=== PATIENT | female | born 1945 | race Two or more races ===

== ENCOUNTER 2017-03-05 14:45 | Observation (INO) | payer MEDICARE, OTHER ==
[2017-03-05] MEDS ORDERED: DILTIAZEM HCL INJ 25 MG/5 ML VIAL IV ONE ×2 (15:22→17:01)
--- NOTE | 2017-03-05 15:28 | ER Document Report ---
ED Cardiac - General Chief Complaint: Palpitations Stated Complaint: CHEST PRESSURE, NECK TIGHTNESS Time Seen by Provider: 03/05/17 14:59 Mode of Arrival: Ambulatory Notes: 71-year-old female with prior history of atrial fibrillation which she remains in, currently on Eliquis, Metoprolol and Multaq presents with rapid palpitations that are regular with pressure in her chest radiating to her neck as well as pressure to the back of her head. It feels irregular. Rate was in the 140s according to her friend who is a retired nurse. She reports missing her morning medications as she was given "on the move". She did end up taking her medications approximately 45 minutes prior to coming to the emergency department. She has not used any [id number]-ovwxful medications or other stimulants. Denies any other new symptoms. Denies any specific pain. No infectious symptoms fever. TRAVEL OUTSIDE OF THE [place] IN LAST 30 DAYS: No - Related Data Allergies/Adverse Reactions: diazepam [From Valium] Allergy (Verified 03/05/17 14:57) "Ants crawling on my skin" oxycodone [From Percocet] Adverse Reaction (Unknown, Verified 03/05/17 14:57) Nightmares Past Medical History - Social History Smoking Status: Never Smoker Family History: Hypertension - Past Medical History Cardiac Medical History: Reports: Hx Atrial Fibrillation, Hx Hypercholesterolemia, Hx Hypertension Pulmonary Medical History: Denies: Hx Tuberculosis Neurological Medical History: Denies: Hx Seizures Renal/ Medical History: Reports: Hx Ovarian Cysts. Denies: Hx Peritoneal Dialysis Malignancy Medical History: Reports: Hx Breast Cancer - R breast cancer 13 yrs ago. GI Medical History: Reports: Hx Gastroesophageal Reflux Disease Musculoskeltal Medical History: Reports Hx Arthritis - Knees, hands, Reports Hx Musculoskeletal Trauma Traumatic Medical History: Reports: Hx Fractures - right hip Past Surgical History: Reports: Hx Appendectomy - Over 50 yrs ago., Hx Genitourinary Surgery, Hx Gynecologic Surgery - ovary right removed, Hx Mastectomy - Right, Hx Orthopedic Surgery - Wrist, hip, Hx Tonsillectomy - Over 50 yrs ago., Other - hernia repair. Denies: Hx Hysterectomy, Hx Pacemaker - Immunizations Hx Diphtheria, Pertussis, Tetanus Vaccination: Yes Hx Pneumococcal Vaccination: 02/21/15 Review of Systems - Review of Systems -: Yes All other systems reviewed and negative Physical Exam - Vital signs Vitals: Temp Pulse Resp BP Pulse Ox 98.4 F 127 H 18 126/52 H 97 03/05/17 14:55 03/05/17 14:55 03/05/17 14:55 03/05/17 14:55 03/05/17 14:55 Interpretation: Tachycardic - Notes Notes: Physical Exam: GENERAL: VS as per nursing doc. Well-appearing, well-nourished and in no acute distress. HEAD: Atraumatic, normocephalic. EYES: Pupils equal round and reactive to light, extraocular movements intact, sclera anicteric, no conjunctival injection or discharge. ENT: Nares patent, oropharynx clear without exudates. Moist mucous membranes. NECK: Normal range of motion, supple without lymphadenopathy. No JVD. No Carotid Bruits. Nontender to palpation. LUNGS: Breath sounds clear to auscultation bilaterally and equal. No wheezes rales or rhonchi. HEART: Normal S1S2. Irregularly irregular, tachycardic without murmurs. Equal peripheral pulses. ABDOMEN: Soft, non-tender. EXTREMITIES: Normal range of motion. No calf tenderness. Negative Homans. 1 + edema. NEUROLOGICAL: Cranial nerves grossly intact. Normal speech. Normal sensory and motor exams. No gross cerebellar abnormalities. PSYCH: Normal mood, normal affect. SKIN: Warm, dry, no cyanosis, no splinter hemorrhages. Cap refill < 2 sec. Course - Vital Signs Vital signs: Temp Pulse Resp BP Pulse Ox 98.4 F 127 H 14 112/64 100 03/05/17 14:55 03/05/17 14:55 03/05/17 19:06 03/05/17 19:06 03/05/17 19:06 - Laboratory Result Diagrams: 03/05/17 15:05 03/05/17 15:05 Laboratory results interpreted by me: 03/05/17 03/05/17 15:05 15:05 RDW 14.2 H BUN 26 H Glucose 171 H - EKG Interpretation by Oh Rhythm: A.Fib - Atrial fibrillation with rapid ventricular response. ST abnormalities probably more rate related. No clear ischemia but there are nonspecific ST changes. Discharge - Discharge Clinical Impression: Atrial fibrillation with RVR Condition: Fair Disposition: ADMITTED OBSERVATION Unit Admitted: [facility]
[2017-03-05] MEDS: DILTIAZEM HCL/D5W 125 MG/125 ML RTUINJ IV PRN ×2 (17:24→21:37)
[2017-03-05 18:10] LABS: ABSOLUTE EOSINOPHILS # (AUTO) 0.2 10^3/uL (0.0-0.6); ABSOLUTE LYMPHOCYTES (AUTO) 1.2 10^3/uL (0.5-4.7); ABSOLUTE MONOCYTES (AUTO) 0.4 10^3/uL (0.1-1.4); BASOPHILS % (AUTO) 0.6 % (0-2); EOSINOPHILS % (AUTO) 2.7 % (0-6); HEMATOCRIT 39.9 % (36.0-47.0); HEMOGLOBIN 13.6 g/dL (12.0-15.5); HGB HCT DIFFERENCE 0.9; LYMPHOCYTES % (AUTO) 21.2 % (13-45); MEAN CORPUSCULAR HEMOGLOBIN 29.9 pg (27.0-33.4); MEAN CORPUSCULAR VOLUME 88 fl (80-97); MONOCYTES % (AUTO) 7.5 % (3-13); RED BLOOD COUNT 4.53 10^6/uL (3.72-5.28); RED CELL DISTRIBUTION WIDTH 14.2 % (11.5-14.0); WHITE BLOOD COUNT 5.8 10^3/uL (4.0-10.5)
[2017-03-05 18:19] LABS: ALANINE AMINOTRANSFERASE 30 U/L (9-52); ALBUMIN 4.3 g/dL (3.5-5.0); ALKALINE PHOSPHATASE 70 U/L (38-126); ANION GAP 13 (5-19); ASPARTATE AMINO TRANSFERASE 28 U/L (14-36); BILIRUBIN,DIRECT 0.4 mg/dL (0.0-0.4); BILIRUBIN,TOTAL 0.5 mg/dL (0.2-1.3); BLOOD UREA NITROGEN 26 mg/dL (7-20); CALCIUM 9.5 mg/dL (8.4-10.2); CARBON DIOXIDE 28 mmol/L (22-30); CHLORIDE 100 mmol/L (98-107); CREATINE KINASE 69 U/L (30-135); GLUCOSE 171 mg/dL (75-110); MAGNESIUM 2.2 mg/dL (1.6-2.3); POTASSIUM 3.6 mmol/L (3.6-5.0); SODIUM 141.3 mmol/L (137-145); TOTAL PROTEIN 7.2 g/dL (6.3-8.2)
[2017-03-05 18:30] LABS: CREATINE KINASE MB 0.73 ng/mL (<4.55)
[2017-03-05 18:31] LABS: TROPONIN I < 0.012 ng/mL
--- NOTE | 2017-03-05 19:00 | RADIOLOGY REPORT (SQ) ---
EXAM DESCRIPTION: CHEST SINGLE VIEW COMPLETED DATE/TIME: 03/05/2017 6:53 pm REASON FOR STUDY: CP COMPARISON: 03/26/2016 EXAM PARAMETERS: NUMBER OF VIEWS: One view. TECHNIQUE: Single frontal radiographic view of the chest acquired. RADIATION DOSE: NA LIMITATIONS: Low lung volumes. FINDINGS: LUNGS AND PLEURA: No opacities, masses or pneumothorax. No pleural effusion. MEDIASTINUM AND HILAR STRUCTURES: No masses. Contour normal. HEART AND VASCULAR STRUCTURES: Heart normal in size. Normal vasculature. BONES: No acute findings. HARDWARE: None in the chest. OTHER: No other significant finding. IMPRESSION: NO ACUTE RADIOGRAPHIC FINDING IN THE CHEST. TECHNICAL DOCUMENTATION: JOB ID: [id number]
[2017-03-05] MEDS ORDERED: POLYETHYLENE GLYCOL 3350 POWDER 17 GM/1 PACKET PO PRN (20:07)
[2017-03-05] MEDS ORDERED: DILTIAZEM HCL/D5W 125 MG/125 ML RTUINJ IV PRN (20:11)
[2017-03-05] MEDS ORDERED: MAG HYDROX/AL HYDROX/SIMETH SUSP 30 ML UDCUP PO PRN (20:11)
[2017-03-05 21:31] LABS: CREATINE KINASE MB 0.79 ng/mL (<4.55)
[2017-03-05 21:38] LABS: TROPONIN I < 0.012 ng/mL
[2017-03-05] MEDS ORDERED: ATORVASTATIN CALCIUM 10 MG TABLET PO SCH (22:00)
--- NOTE | 2017-03-05 22:51 | EKG REPORT ---
SEVERITY:- ABNORMAL ECG - ATRIAL FIBRILLATION BORDERLINE PROLONGED QT INTERVAL : Confirmed by: Lucia Banuelos 05-Mar-2017 22:50:28
[2017-03-05] MEDS ORDERED: NORMAL SALINE 1000 ML 1,000 ML IV ONE (22:58)
[2017-03-06] MEDS: APIXABAN 5 MG TABLET PO SCH ×2 (00:45→10:45)
[2017-03-06] MEDS: DRONEDARONE HYDROCHLORIDE 400 MG TABLET PO SCH ×2 (00:46→10:47)
[2017-03-06] MEDS ORDERED: NORMAL SALINE 1000 ML 1,000 ML IV ONE (01:57)
--- NOTE | 2017-03-06 02:09 | PDOC H&P ---
History of Present Illness Admission Date/PCP: 03/05/17 20:11 Patient complains of: Chest pressure History of Present Illness: CONOR REDDY is a 71 year old female with a past medical history of hypertension, dyslipidemia and atrial fibrillation on Eliquis twice daily. Who has been her usual state of health until approximately 6 hours prior to presentation developing chest and left neck tightness prompting to seek evaluation emergency room where she is found to be in A. fib with RVR in the 140s. She is started on IV diltiazem with improvement of her heart rate develops hypotension requiring several liters of normal saline and is referred to the hospitalist for admission. Patient denies pain currently, no shortness of breath nausea vomiting or diaphoresis occurring prior to presentation. She denies recent heat or cold intolerance, pulmonary complaints, change in medications, excessive caffeine, alcohol. Past Medical History Cardiac Medical History: Reports: Atrial Fibrillation, Hyperlipidema, Hypertension Pulmonary Medical History: Denies: Tuberculosis Neurological Medical History: Denies: Seizures Malignancy Medical History: Reports: Breast Cancer - R breast cancer 13 yrs ago. GI Medical History: Reports: Gastroesophageal Reflux Disease Musculoskeltal Medical History: Reports: Arthritis - Knees, hands Hematology: Reports: Anemia Past Surgical History Past Surgical History: Reports: Appendectomy - Over 50 yrs ago., Mastectomy - Right, Orthopedic Surgery - Wrist, hip, Tonsillectomy - Over 50 yrs ago., Other - hernia repair Denies: Hysterectomy, Pacemaker Social History Information Source: Patient, [facility] Records Lives with: Family Smoking Status: Never Smoker Frequency of Alcohol Use: None Hx Recreational Drug Use: No Drugs: None Hx Prescription Drug Abuse: No - Advance Directive Resuscitation Status: Full Code Family History Family History: Hypertension Parental Family History Reviewed: Yes Children Family History Reviewed: Yes Sibling(s) Family History Reviewed.: Yes Medication/Allergy Home Medications: Apixaban [Eliquis 5 mg Tablet] 5 mg PO Q12 03/05/17 Ascorbic Acid [Vitamin C] 250 mg PO DAILY 03/05/17 Atorvastatin Calcium [Lipitor 10 mg Tablet] 10 mg PO QHS 03/05/17 Azelaic Acid [Finacea] 1 applic TP DAILY 03/05/17 Biotin 1,200 mcg PO DAILY 03/05/17 Calcium Carbonate [Calcium] 1,000 mg PO DAILY 03/05/17 Cholecalciferol (Vitamin D3) [Vitamin D3 2000 unit Tablet] 2,000 unit PO DAILY 03/05/17 Cyanocobalamin (Vitamin B-12) [Vitamin B-12] 500 mcg PO DAILY 03/05/17 Diltiazem HCl [Diltiazem 24Hr Cd] 120 mg PO DAILY 03/05/17 Dronedarone Hydrochloride [Multaq 400 Mg Tablet] 400 mg PO BID 03/05/17 Hydrochlorothiazide [Hydrodiuril 25 mg Tablet] 25 mg PO QAM 03/05/17 Hydrocodone/Acetaminophen [[place] 7.5-325 mg Tablet] 1 tab PO Q8HP PRN 03/05/17 Loratadine [Claritin] 10 mg PO DAILYP PRN 03/05/17 Magnesium Oxide [Mag-Ox 400 mg Tablet] 400 mg PO DAILY 03/05/17 Metoprolol Tartrate [Lopressor 25 mg Tablet] 25 mg PO DAILY 03/05/17 Multivitamin [Chewable-Thom] 1 tab PO DAILY 03/05/17 Telmisartan [Micardis 20 mg Tablet] 20 mg PO DAILY 03/05/17 Allergies/Adverse Reactions: diazepam [From Valium] Allergy (Verified 03/05/17 14:57) "Ants crawling on my skin" oxycodone [From Percocet] Adverse Reaction (Unknown, Verified 03/05/17 23:37) Nightmares Review of Systems Constitutional: ABSENT: chills, fever(s), headache(s), weight gain, weight loss Eyes: ABSENT: visual disturbances Ears: ABSENT: hearing changes Cardiovascular: ABSENT: chest pain, dyspnea on exertion, edema, orthropnea, palpitations Respiratory: ABSENT: cough, hemoptysis Gastrointestinal: ABSENT: abdominal pain, constipation, diarrhea, hematemesis, hematochezia, nausea, vomiting Genitourinary: ABSENT: dysuria, hematuria Musculoskeletal: ABSENT: joint swelling Integumentary: ABSENT: rash, wounds Neurological: ABSENT: abnormal gait, abnormal speech, confusion, dizziness, focal weakness, syncope Psychiatric: ABSENT: anxiety, depression, homidical ideation, suicidal ideation Endocrine: ABSENT: cold intolerance, heat intolerance, polydipsia, polyuria Hematologic/Lymphatic: ABSENT: easy bleeding, easy bruising Physical Exam Vital Signs: Temp Pulse Resp BP Pulse Ox 98.5 F 64 18 92/40 L 100 03/05/17 22:46 03/05/17 22:46 03/05/17 22:46 03/06/17 00:01 03/05/17 22:46 Intake & Output 03/04/17 03/05/17 03/06/17 11:59 11:59 11:59 Intake Total 100 Balance 100 Weight 65.5 kg General appearance: PRESENT: no acute distress, well-developed, well-nourished Head exam: PRESENT: atraumatic, normocephalic Eye exam: PRESENT: conjunctiva pink, EOMI, PERRLA. ABSENT: scleral icterus Ear exam: PRESENT: normal external ear exam Mouth exam: PRESENT: moist, tongue midline Neck exam: ABSENT: carotid bruit, JVD, lymphadenopathy, thyromegaly Respiratory exam: PRESENT: clear to auscultation willam. ABSENT: rales, rhonchi, wheezes Cardiovascular exam: PRESENT: irregular rhythm, tachycardia. ABSENT: diastolic murmur, rubs, systolic murmur Pulses: PRESENT: normal dorsalis pedis pul Vascular exam: PRESENT: normal capillary refill GI/Abdominal exam: PRESENT: normal bowel sounds, soft. ABSENT: distended, guarding, mass, organolmegaly, rebound, tenderness Rectal exam: PRESENT: deferred Extremities exam: PRESENT: full ROM. ABSENT: calf tenderness, clubbing, pedal edema Neurological exam: PRESENT: alert, awake, oriented to person, oriented to place , oriented to time, oriented to situation, CN II-XII grossly intact. ABSENT: motor sensory deficit Psychiatric exam: PRESENT: appropriate affect, normal mood. ABSENT: homicidal ideation, suicidal ideation Skin exam: PRESENT: dry, intact, warm. ABSENT: cyanosis, rash Results Laboratory Results: 03/05/17 20:50 CK-MB (CK-2) 0.79 Troponin I < 0.012 Impressions: Chest X-Ray 03/05/17 18:42 IMPRESSION: NO ACUTE RADIOGRAPHIC FINDING IN THE CHEST. Assessment & Plan - Diagnosis (1) Atrial fibrillation with RVR Is this a current diagnosis for this admission?: Yes Plan: Unclear cause for exacerbation. Concern for chest tightness and risk factors for coronary disease she is admitted to the [facility] with resumption of her home regiment in addition to IV Cardizem. Follow-up cardiac enzymes, TSH, 2D echo and cardiology consult with Dr. Jez Stapleton. (2) Chest pain Is this a current diagnosis for this admission?: Yes Plan: Chest pain with coronary artery disease risk factors will obtain serial cardiac enzymes and lipid profile. Consider outpatient stress test given chest pain with tachycardia. (3) Hypotension Is this a current diagnosis for this admission?: Yes Plan: Likely secondary to uncontrolled rate with mild hypokalemia IV fluid challenge and reevaluation. - Time Time Spent: 50 to 70 Minutes - Inpatient Certification Medical Necessity: Need Close Monitoring Due to Risk of Patient Decompensation
[2017-03-06 03:28] LABS: ABSOLUTE EOSINOPHILS # (AUTO) 0.2 10^3/uL (0.0-0.6); ABSOLUTE LYMPHOCYTES (AUTO) 1.4 10^3/uL (0.5-4.7); ABSOLUTE MONOCYTES (AUTO) 0.6 10^3/uL (0.1-1.4); ABSOLUTE NEUT (AUTO) 3.7 10^3/uL (1.7-8.2); BASOPHILS % (AUTO) 0.4 % (0-2); EOSINOPHILS % (AUTO) 3.2 % (0-6); HEMATOCRIT 31.6 % (36.0-47.0); HGB HCT DIFFERENCE 1.4; LYMPHOCYTES % (AUTO) 23.1 % (13-45); MEAN CORPUSCULAR HEMOGLOBIN 30.5 pg (27.0-33.4); MEAN CORPUSCULAR HGB CONC 34.9 g/dL (32.0-36.0); MEAN CORPUSCULAR VOLUME 88 fl (80-97); RED BLOOD COUNT 3.61 10^6/uL (3.72-5.28); RED CELL DISTRIBUTION WIDTH 14.2 % (11.5-14.0); SEGMENTED NEUTROPHILS % (AUTO) 63.3 % (42-78); WHITE BLOOD COUNT 5.9 10^3/uL (4.0-10.5)
[2017-03-06 03:36] LABS: CHOLESTEROL 121.39 mg/dL (0-200); CREATINE KINASE 49 U/L (30-135); Direct HDL 50 mg/dL (>40); TRIGLYCERIDES 81 mg/dL (<150)
[2017-03-06 03:47] LABS: DIRECT LDL 51 mg/dL (<100)
[2017-03-06 03:48] LABS: CREATINE KINASE MB 0.71 ng/mL (<4.55)
[2017-03-06 04:04] LABS: TROPONIN I < 0.012 ng/mL
[2017-03-06] MEDS ORDERED: VIT D3 PO SCH (10:00)
[2017-03-06] MEDS ORDERED: CYANOCOBALAMIN (VITAMIN B-12) 1,000 MCG TABLET PO SCH (10:00)
[2017-03-06] MEDS ORDERED: CALCIUM CARBONATE 250 MG/VITAMIN D3 125 UNIT TABLET PO SCH (10:00)
[2017-03-06] MEDS ORDERED: CYANOCOBALAMIN 1500 MCG PO SCH (10:00)
[2017-03-06] MEDS ORDERED: CALCIUM PHOSPHATE TRIB PO SCH (10:00)
[2017-03-06] MEDS ORDERED: METOPROLOL SUCCINATE 25 MG TAB.SR.24H PO SCH (10:00)
[2017-03-06] MEDS ORDERED: [UNRECOGNIZED DRUG - OTHER] PO SCH (10:00)
[2017-03-06] MEDS ORDERED: DOCUSATE SODIUM 100 MG CAPSULE PO SCH (10:00)
[2017-03-06 11:13] VITALS: BP 110/60
[2017-03-06 11:54] LABS: CREATINE KINASE MB 0.54 ng/mL (<4.55)
[2017-03-06 11:58] LABS: TROPONIN I < 0.012 ng/mL
[2017-03-06] MEDS ORDERED: MAG HYDROX/AL HYDROX/SIMETH SUSP 30 ML UDCUP PO PRN (12:00)
[2017-03-06] MEDS ORDERED: POLYETHYLENE GLYCOL 3350 POWDER 17 GM/1 PACKET PO PRN (12:00)
--- NOTE | 2017-03-06 16:08 | PDOC DISCHARGE SUMMARY ---
General - Admit/Disc Date/PCP Admission Date/Primary Care Provider: 03/05/17 20:11 Discharge Date: 03/06/17 - Discharge Diagnosis (1) Atrial fibrillation with RVR Is this a current diagnosis for this admission?: Yes (2) Hypertension Is this a current diagnosis for this admission?: Yes Summary: BP well controlled. (3) Dyslipidemia Is this a current diagnosis for this admission?: Yes (4) GERD without esophagitis Is this a current diagnosis for this admission?: Yes (5) Arthritis Is this a current diagnosis for this admission?: Yes (6) Anemia Is this a current diagnosis for this admission?: Yes - Additional Information Resuscitation Status: Full Code Discharge Diet: Cardiac Discharge Activity: Activity As Tolerated Home Medications: Apixaban [Eliquis 5 mg Tablet] 5 mg PO Q12 03/05/17 Ascorbic Acid [Vitamin C] 250 mg PO DAILY 03/05/17 Atorvastatin Calcium [Lipitor 10 mg Tablet] 10 mg PO QHS 03/05/17 Azelaic Acid [Finacea] 1 applic TP DAILY 03/05/17 Biotin 1,200 mcg PO DAILY 03/05/17 Calcium Carbonate [Calcium] 1,000 mg PO DAILY 03/05/17 Cholecalciferol (Vitamin D3) [Vitamin D3 2000 unit Tablet] 2,000 unit PO DAILY 03/05/17 Cyanocobalamin (Vitamin B-12) [Vitamin B-12] 500 mcg PO DAILY 03/05/17 Diltiazem HCl [Diltiazem 24Hr Cd] 120 mg PO DAILY 03/05/17 Dronedarone Hydrochloride [Multaq 400 mg Tablet] 400 mg PO BID 03/05/17 Hydrochlorothiazide [Hydrodiuril 25 mg Tablet] 25 mg PO QAM 03/05/17 Hydrocodone/Acetaminophen [[place] 7.5-325 mg Tablet] 1 tab PO Q8HP PRN 03/05/17 Loratadine [Claritin] 10 mg PO DAILYP PRN 03/05/17 Magnesium Oxide [Mag-Ox 400 mg Tablet] 400 mg PO DAILY 03/05/17 Metoprolol Tartrate [Lopressor 25 mg Tablet] 25 mg PO DAILY 03/05/17 Multivitamin [Chewable-Thom] 1 tab PO DAILY 03/05/17 Telmisartan [Micardis 20 mg Tablet] 20 mg PO DAILY 03/05/17 History of Present Illness History of Present Illness: CONOR REDDY is a 71 year old female with a past medical history of hypertension, dyslipidemia and atrial fibrillation on Eliquis twice daily. She was in her usual state of health until approximately 6 hours prior to presentation when she developed palpitations associated with chest and left neck tightness. This prompted her to seek evaluation in our emergency room where she is found to be in A. fib with RVR in the 140s. She was started on IV diltiazem with improvement of her heart rate, but developed hypotension. She required several liters of normal saline to bring her BP up. At the time of admission, she did not report pain, shortness of breath, nausea, vomiting or diaphoresis. She denied recent heat or cold intolerance, pulmonary complaints, change in medications, or excessive caffeine and alcohol. Hospital Course Hospital Course: She was maintained on her usual cardiac medications, except oral diltiazem, because she was on the diltiazem drip. She mentioned earlier, that she had forgot to take her medications during the day, but took them about 45 minutes prior to arriving to the ED. Her rate was easily controlled. the diltiazem gtt was stopped. Her HR remained in the 60s. She remained asymptomatic throughout her hospital stay. She underwent an echocardiogram prior to discharge. The results were pending. She will follow-up with her dinkey engineer, Dr Stapleton, for the results. Physical Exam Vital Signs: Temp Pulse Resp BP Pulse Ox 97.3 F 61 16 110/60 98 03/06/17 11:05 03/06/17 11:05 03/06/17 11:05 03/06/17 11:05 03/06/17 11:05 Intake & Output 03/05/17 03/06/17 03/07/17 06:59 06:59 06:59 Intake Total 2225 Output Total 1000 Balance 1225 Weight 61.4 kg General appearance: PRESENT: no acute distress, well-developed, well-nourished Head exam: PRESENT: atraumatic, normocephalic Eye exam: PRESENT: conjunctiva pink, EOMI, PERRLA. ABSENT: scleral icterus Neck exam: ABSENT: carotid bruit, JVD, lymphadenopathy, thyromegaly Respiratory exam: PRESENT: clear to auscultation willam. ABSENT: rales, rhonchi, wheezes Cardiovascular exam: PRESENT: irregular rhythm - Normal rate GI/Abdominal exam: PRESENT: normal bowel sounds, soft. ABSENT: distended, guarding, mass, organolmegaly, rebound, tenderness Musculoskeletal exam: PRESENT: ambulatory Neurological exam: PRESENT: alert, awake, oriented to person, oriented to place , oriented to time, oriented to situation, CN II-XII grossly intact. ABSENT: motor sensory deficit Skin exam: PRESENT: dry, intact, warm. ABSENT: cyanosis, rash Results Laboratory Results: 03/06/17 03:02 03/05/17 03/06/17 03/06/17 20:50 03:02 03:02 WBC 5.9 RBC 3.61 L Hgb 11.0 L D Hct 31.6 L MCV 88 MCH 30.5 MCHC 34.9 RDW 14.2 H Plt Count 179 Seg Neutrophils % 63.3 Lymphocytes % 23.1 Monocytes % 10.0 Eosinophils % 3.2 Basophils % 0.4 Absolute Neutrophils 3.7 Absolute Lymphocytes 1.4 Absolute Monocytes 0.6 Absolute Eosinophils 0.2 Absolute Basophils 0.0 Triglycerides 81 Cholesterol 121.39 LDL Cholesterol Direct 51 VLDL Cholesterol 16.0 HDL Cholesterol 50 TSH 0.91 03/05/17 03/06/17 03/06/17 20:50 03:02 03:02 Creatine Kinase 49 CK-MB (CK-2) 0.79 0.71 Troponin I < 0.012 < 0.012 03/06/17 10:53 Creatine Kinase CK-MB (CK-2) 0.54 Troponin I < 0.012 Impressions: Chest X-Ray 03/05/17 18:42 IMPRESSION: NO ACUTE RADIOGRAPHIC FINDING IN THE CHEST. Plan Discharge Plan: She will follow up with Dr Stapleton. His office will contact her for appointment.
--- NOTE | 2017-03-07 10:03 | XCELERA REPORT ---
[address] [address] Transthoracic Echocardiogram Report Name: CONOR REDDY V Age: 71 yrs Gender: Female : 1945 Patient Status: Inpatient Patient Location: [facility]^A Study Date: 03/06/2017 09:47 AM Height: 62 in Weight: 144 lb BSA: 1.7 m2 Reason For Study: afib chest pain Ordering Physician: GIRISH YANG Performed By: Patti Michelle Interpretation Summary small post peric reffusion Mild AV sclerosis with 3 cusps, no , no AR. Mild MAC, no MS, no MR but mod/severe LA enlargement REI 48.2. Mod PW hypertrophy, Normal LVEF 66%h LVDD, and no LV enlargement, and no RWMA Mild TR with RVSP 35 mm Hg MMode/2D Measurements & Calculations RVDd: 3.2 cm LVIDd: 4.4 cm FS: 34.6 % Ao root diam: IVSd: 0.94 cm LVIDs: 2.9 cm EDV(Teich): 2.6 cm LVPWd: 0.92 cm 86.8 ml Ao root area: ESV(Teich): 31.3 ml 5.3 cm2 EF(Teich): LA dimension: 63.9 % 3.3 cm LVLd ap4: 7.1 cm SV(MOD-sp4): 49.0 ml LA A2Cs: LA A4Cs: 20.1 cm2 EDV(MOD-sp4): 26.2 cm2 72.0 ml LVLs ap4: 6.0 cm ESV(MOD-sp4): 23.0 ml EF(MOD-sp4): 68.1 % LA length: 5.3 cmLA Vol Index (BP): LA Volume: 51.3 ml/m2 85.3 ml Doppler Measurements & Calculations MV E max moriah: MV P1/2t max moriah: Ao V2 max: LV V1 max P.5 cm/sec 79.0 cm/sec 149.7 cm/sec 4.2 mmHg MV A max moriah: MV P1/2t: 79.4 msec Ao max PG: LV V1 max: 86.9 cm/sec 9.0 mmHg 102.7 cm/sec MV E/A: 0.89 MVA(P1/2t): 2.8 cm2 MV dec slope: 291.3 cm/sec2 MV dec time: 0.27 sec PA V2 max: TR max moriah: 99.7 cm/sec 274.2 cm/sec PA max PG: TR max P.1 mmHg 4.0 mmHg Left Ventricle The left ventricle is normal in size, thickness and function. There is normal left ventricular wall thickness. The left ventricular ejection fraction is normal. LV EF is 66%%. Doppler measurements suggest normal left ventricular diastolic function. No regional wall motion abnormalities noted. There is no thrombus. Right Ventricle The right ventricle is normal in size, thickness and function. Atria The right atrium is normal. The left atrium is severely dilated. REI 48.2. The interatrial septum is intact with no evidence for an atrial septal defect. Mitral Valve There is mild mitral annular calcification. There is no evidence of mitral valve prolapse. There is no mitral valve stenosis. There is no mitral regurgitation noted. Aortic Valve The aortic valve opens well. The aortic valve is sclerotic and shows some degree of functional abnormality. The aortic valve is trileaflet. There is no aortic valvular vegetation. There is no aortic valve stenosis. No aortic regurgitation is present. Tricuspid Valve The tricuspid is normal in structure and function. There is no tricuspid valve prolapse. There is no tricuspid stenosis. There is a trace or physiologic amount of tricuspid regurgitation. There is a mild amount of tricuspid regurgitation. Effusions Small pericardial effusion. I WMSI = 1.00 % Normal = 100 Segments Size X - Cannot 2 - 4 - 1-2 small Interpret 1 - Normal Hypokinetic 3 - AkineticDyskinetic 3-5 moderate 5 - 6-14 large Aneurysmal 15-16 diffuse : GIRISH YANG > Jez Stapleton
== END 2017-03-06 17:03 | disposition home or self-care (01) ==
LOC: ER 14:45 → EH 20:11 → UNDOADMOB 20:25 → EH 20:25 → 3N 23:02
PROVIDERS: ADMIT Internal Medicine; ATTEND Internal Medicine
DX: I48.91 Unspecified atrial fibrillation (principal); I10 Essential (primary) hypertension; E78.5 Hyperlipidemia, unspecified; K21.9 Gastro-esophageal reflux disease without esophagitis; M19.90 Unspecified osteoarthritis, unspecified site; D64.9 Anemia, unspecified; I95.2 Hypotension due to drugs; T46.1X5A Adverse effect of calcium-channel blockers, initial encounter; Y92.230 Patient room in hospital as the place of occurrence of the external cause; Z79.02 Long term (current) use of antithrombotics/antiplatelets; Z85.3 Personal history of malignant neoplasm of breast; Z90.11 Acquired absence of right breast and nipple; Z90.49 Acquired absence of other specified parts of digestive tract; Z82.49 Family history of ischemic heart disease and other diseases of the circulatory system
CPT/HCPCS: 93005; 96376; 99285; 96374; 36415 ×2; 82553 ×2; 82550 ×2; 83735; 84443; 85025 ×2; 80053; 84484 ×2; 80061; 93306; 71010; 93010; A9270 ×6; J3490 ×3; J7030

== ENCOUNTER → 2017-05-01 | Outpatient (CLI) | payer MEDICARE, OTHER ==
[2017-05-01 10:04] LABS: HEMATOCRIT 34.5 % (36.0-47.0); HEMOGLOBIN 11.7 g/dL (12.0-15.5); HGB HCT DIFFERENCE 0.6; MEAN CORPUSCULAR HEMOGLOBIN 29.4 pg (27.0-33.4); MEAN CORPUSCULAR HGB CONC 34.1 g/dL (32.0-36.0); MEAN CORPUSCULAR VOLUME 86 fl (80-97); RED BLOOD COUNT 3.99 10^6/uL (3.72-5.28); RED CELL DISTRIBUTION WIDTH 14.5 % (11.5-14.0); WHITE BLOOD COUNT 5.4 10^3/uL (4.0-10.5)
[2017-05-01 10:17] LABS: ALANINE AMINOTRANSFERASE 35 U/L (9-52); ALKALINE PHOSPHATASE 65 U/L (38-126); ANION GAP 11 (5-19); ASPARTATE AMINO TRANSFERASE 35 U/L (14-36); BILIRUBIN,DIRECT 0.3 mg/dL (0.0-0.4); BILIRUBIN,TOTAL 0.4 mg/dL (0.2-1.3); BLOOD UREA NITROGEN 32 mg/dL (7-20); CARBON DIOXIDE 29 mmol/L (22-30); CHLORIDE 101 mmol/L (98-107); CREATININE RESULT 1.21 mg/dL (0.52-1.25); GLUCOSE 100 mg/dL (75-110); MAGNESIUM 2.3 mg/dL (1.6-2.3); POTASSIUM 4.2 mmol/L (3.6-5.0); SODIUM 141.3 mmol/L (137-145); TOTAL PROTEIN 6.7 g/dL (6.3-8.2)
[2017-05-01 12:12] LABS: APPEARANCE,URINE CLEAR; BILIRUBIN,URINE NEGATIVE (NEGATIVE); GLUCOSE, URINE NEGATIVE (NEGATIVE); KETONES,URINE NEGATIVE (NEGATIVE); LEUKOCYTE ESTERASE,URINE TRACE (NEGATIVE); NITRITE,URINE NEGATIVE (NEGATIVE); PROTEIN,URINE NEGATIVE (NEGATIVE); URINE SPECIFIC GRAVITY 1.018; UROBILINOGEN,URINE NEGATIVE mg/dL (<2.0)
== END ==
LOC: OD 08:56
PROVIDERS: ATTEND Internal Medicine Cardiovascular Disease
DX: Z79.899 Other long term (current) drug therapy (principal); Z79.01 Long term (current) use of anticoagulants
CPT/HCPCS: 36415; 80048; 80076; 81001; 82272; 83735; 85027; 85730

== ENCOUNTER → 2017-07-21 | Outpatient (CLI) | payer MEDICARE, OTHER ==
[2017-07-21 12:03] LABS: HEMATOCRIT 36.1 % (36.0-47.0); HEMOGLOBIN 12.1 g/dL (12.0-15.5); MEAN CORPUSCULAR HEMOGLOBIN 29.4 pg (27.0-33.4); MEAN CORPUSCULAR HGB CONC 33.7 g/dL (32.0-36.0); MEAN CORPUSCULAR VOLUME 87 fl (80-97); PLATELET COUNT 236 10^3/uL (150-450); RED BLOOD COUNT 4.13 10^6/uL (3.72-5.28); RED CELL DISTRIBUTION WIDTH 14.3 % (11.5-14.0); WHITE BLOOD COUNT 5.6 10^3/uL (4.0-10.5)
[2017-07-21 12:04] LABS: APPEARANCE,URINE CLEAR; BILIRUBIN,URINE NEGATIVE (NEGATIVE); COLOR,URINE YELLOW; GLUCOSE, URINE NEGATIVE (NEGATIVE); KETONES,URINE NEGATIVE (NEGATIVE); LEUKOCYTE ESTERASE,URINE SMALL (NEGATIVE); NITRITE,URINE NEGATIVE (NEGATIVE); PROTEIN,URINE NEGATIVE (NEGATIVE); URINE SPECIFIC GRAVITY 1.012; UROBILINOGEN,URINE NEGATIVE mg/dL (<2.0)
[2017-07-21 12:29] LABS: ALANINE AMINOTRANSFERASE 29 U/L (9-52); ALBUMIN 4.2 g/dL (3.5-5.0); ALKALINE PHOSPHATASE 66 U/L (38-126); ANION GAP 7 (5-19); ASPARTATE AMINO TRANSFERASE 31 U/L (14-36); BILIRUBIN,DIRECT 0.3 mg/dL (0.0-0.4); BILIRUBIN,TOTAL 0.4 mg/dL (0.2-1.3); BLOOD UREA NITROGEN 22 mg/dL (7-20); CALCIUM 9.3 mg/dL (8.4-10.2); CARBON DIOXIDE 31 mmol/L (22-30); CHLORIDE 103 mmol/L (98-107); GLUCOSE 95 mg/dL (75-110); MAGNESIUM 2.1 mg/dL (1.6-2.3); POTASSIUM 4.3 mmol/L (3.6-5.0); TOTAL PROTEIN 6.8 g/dL (6.3-8.2)
== END ==
LOC: OD 10:26
PROVIDERS: ATTEND Internal Medicine Cardiovascular Disease
DX: Z79.01 Long term (current) use of anticoagulants (principal); Z79.899 Other long term (current) drug therapy
CPT/HCPCS: 36415; 80048; 80076; 81001; 82272; 83735; 85027; 85730

== ENCOUNTER → 2017-11-05 | Outpatient (CLI) | payer MEDICARE, OTHER ==
[2017-11-05 12:33] LABS: HEMATOCRIT 34.2 % (36.0-47.0); HEMOGLOBIN 11.5 g/dL (12.0-15.5); MEAN CORPUSCULAR HEMOGLOBIN 29.8 pg (27.0-33.4); MEAN CORPUSCULAR HGB CONC 33.5 g/dL (32.0-36.0); MEAN CORPUSCULAR VOLUME 89 fl (80-97); PLATELET COUNT 225 10^3/uL (150-450); RED BLOOD COUNT 3.85 10^6/uL (3.72-5.28); RED CELL DISTRIBUTION WIDTH 14.2 % (11.5-14.0); WHITE BLOOD COUNT 4.6 10^3/uL (4.0-10.5)
[2017-11-05 12:34] LABS: APPEARANCE,URINE CLEAR; BILIRUBIN,URINE NEGATIVE (NEGATIVE); COLOR,URINE YELLOW; GLUCOSE, URINE NEGATIVE (NEGATIVE); KETONES,URINE NEGATIVE (NEGATIVE); LEUKOCYTE ESTERASE,URINE TRACE (NEGATIVE); NITRITE,URINE NEGATIVE (NEGATIVE); PROTEIN,URINE NEGATIVE (NEGATIVE); URINE SPECIFIC GRAVITY 1.018; UROBILINOGEN,URINE NEGATIVE mg/dL (<2.0)
[2017-11-05 12:56] LABS: ALANINE AMINOTRANSFERASE 28 U/L (9-52); ALKALINE PHOSPHATASE 56 U/L (38-126); ANION GAP 12 (5-19); ASPARTATE AMINO TRANSFERASE 28 U/L (14-36); BILIRUBIN,DIRECT 0.2 mg/dL (0.0-0.4); BILIRUBIN,TOTAL 0.5 mg/dL (0.2-1.3); BLOOD UREA NITROGEN 28 mg/dL (7-20); CALCIUM 9.1 mg/dL (8.4-10.2); CARBON DIOXIDE 30 mmol/L (22-30); CHLORIDE 100 mmol/L (98-107); GLUCOSE 91 mg/dL (75-110); POTASSIUM 3.7 mmol/L (3.6-5.0); SODIUM 142.2 mmol/L (137-145); TOTAL PROTEIN 6.6 g/dL (6.3-8.2)
== END ==
LOC: OD 11:22
PROVIDERS: ATTEND Internal Medicine Cardiovascular Disease
DX: Z51.81 Encounter for therapeutic drug level monitoring (principal); Z79.01 Long term (current) use of anticoagulants; Z79.899 Other long term (current) drug therapy
CPT/HCPCS: 36415; 80048; 80076; 81001; 82272; 83735; 85027; 85730

== ENCOUNTER → 2017-12-03 | Outpatient (CLI) | payer MEDICARE, OTHER ==
[2017-12-03 10:25] LABS: ANION GAP 9 (5-19); BLOOD UREA NITROGEN 29 mg/dL (7-20); CALCIUM 9.3 mg/dL (8.4-10.2); CARBON DIOXIDE 31 mmol/L (22-30); CHLORIDE 102 mmol/L (98-107); GLUCOSE 93 mg/dL (75-110); POTASSIUM 4.3 mmol/L (3.6-5.0); SODIUM 141.9 mmol/L (137-145)
== END ==
LOC: OD 08:52
PROVIDERS: ATTEND Internal Medicine Cardiovascular Disease
DX: E87.6 Hypokalemia (principal)
CPT/HCPCS: 36415; 80048

== ENCOUNTER 2018-01-07 19:58 | Emergency (ER) | payer MEDICARE, OTHER ==
--- NOTE | 2018-01-07 20:20 | ER Document Report ---
ED Medical Screen (RME) - General Chief Complaint: Nose Bleed Stated Complaint: FALL/NOSE BLEED Time Seen by Provider: 01/07/18 20:16 TRAVEL OUTSIDE OF THE [place] IN LAST 30 DAYS: No - HPI Patient complains to provider of: Facial injury, nosebleed Notes: 01/07/18 20:19 Patient is a 72-year-old female who takes Eliquis secondary to atrial fibrillation, she fell asleep in her office chair on Friday causing her to land face first, she denies any loss of consciousness, she does have some abrasions on her face and has a nosebleed that bled for several hours on Friday and then subsequently stopped after pinching and applying ice, today the nose started bleeding again, her nose is also noted to be asymmetric which is new since the fall - Related Data Allergies/Adverse Reactions: diazepam [From Valium] Allergy (Verified 01/07/18 20:03) "Ants crawling on my skin" oxycodone [From Percocet] Adverse Reaction (Unknown, Verified 01/07/18 20:03) Nightmares Past Medical History - Social History Chew tobacco use (# tins/day): No Frequency of alcohol use: None Drug Abuse: None - Past Medical History Cardiac Medical History: Reports: Hx Atrial Fibrillation, Hx Hypercholesterolemia, Hx Hypertension Pulmonary Medical History: Denies: Hx Tuberculosis Neurological Medical History: Denies: Hx Seizures Renal/ Medical History: Reports: Hx Ovarian Cysts. Denies: Hx Peritoneal Dialysis Malignancy Medical History: Reports: Hx Breast Cancer - R breast cancer 13 yrs ago. GI Medical History: Reports: Hx Gastroesophageal Reflux Disease Musculoskeltal Medical History: Reports Hx Arthritis - Knees, hands, Reports Hx Musculoskeletal Trauma Traumatic Medical History: Reports: Hx Fractures - right hip Past Surgical History: Reports: Hx Appendectomy - Over 50 yrs ago., Hx Genitourinary Surgery, Hx Gynecologic Surgery - ovary right removed, Hx Mastectomy - Right, Hx Orthopedic Surgery - Wrist, hip, Hx Tonsillectomy - Over 50 yrs ago., Other - hernia repair. Denies: Hx Hysterectomy, Hx Pacemaker - Immunizations Hx Diphtheria, Pertussis, Tetanus Vaccination: Yes Doctor's Discharge - Discharge Referrals: GEORGI MICHAEL MD [Primary Care Provider] - Follow up as needed
[2018-01-07 21:08] LABS: ABSOLUTE EOSINOPHILS # (AUTO) 0.3 10^3/uL (0.0-0.6); ABSOLUTE LYMPHOCYTES (AUTO) 1.2 10^3/uL (0.5-4.7); ABSOLUTE MONOCYTES (AUTO) 0.5 10^3/uL (0.1-1.4); ABSOLUTE NEUT (AUTO) 3.8 10^3/uL (1.7-8.2); BASOPHILS % (AUTO) 0.5 % (0-2); EOSINOPHILS % (AUTO) 5.4 % (0-6); HEMATOCRIT 35.1 % (36.0-47.0); HEMOGLOBIN 11.7 g/dL (12.0-15.5); LYMPHOCYTES % (AUTO) 20.4 % (13-45); MEAN CORPUSCULAR HGB CONC 33.4 g/dL (32.0-36.0); MEAN CORPUSCULAR VOLUME 90 fl (80-97); MONOCYTES % (AUTO) 8.4 % (3-13); PLATELET COUNT 265 10^3/uL (150-450); RED BLOOD COUNT 3.91 10^6/uL (3.72-5.28); SEGMENTED NEUTROPHILS % (AUTO) 65.3 % (42-78); TOTAL CELLS COUNTED % (AUTO) 100 %; WHITE BLOOD COUNT 5.9 10^3/uL (4.0-10.5)
[2018-01-07 21:09] LABS: INTERNATIONAL RATION (INR) 1.14; PROTHROMBIN TIME 15.2 SEC (11.4-15.4)
[2018-01-07 21:10] LABS: PARTIAL THROMBOPLASTIN TIME 40.9 SEC (23.5-35.8)
--- NOTE | 2018-01-07 21:11 | RADIOLOGY REPORT (SQ) ---
EXAM DESCRIPTION: CT HEAD WITHOUT COMPLETED DATE/TIME: 01/07/2018 8:44 pm REASON FOR STUDY: injury COMPARISON: None. TECHNIQUE: Axial images acquired through the brain without intravenous contrast. Images reviewed wi th bone, brain and subdural windows. Images stored on PACS. All CT scanners at this facility use dose modulation, iterative reconstruction, and/or weight based d osing when appropriate to reduce radiation dose to as low as reasonably achievable (ALARA). [facility]: Dose Right [facility]: CareDose [facility]: Dose Right [facility]: Teradose 4D [facility]: Smart [employer] RADIATION DOSE: CT Rad equipment meets quality standard of care and radiation dose reduction techniq ues were employed. CTDIvol: 48.5 mGy. DLP: 855 mGy-cm. mGy. LIMITATIONS: None. FINDINGS: VENTRICLES: Normal size and contour. CEREBRUM: No masses. No hemorrhage. No midline shift. No evidence for acute infarction. Normal gra y/white matter differentiation. No areas of low density in the white matter. CEREBELLUM: No masses. No hemorrhage. No alteration of density. No evidence for acute infarction. EXTRAAXIAL SPACES: No fluid collections. No masses. ORBITS AND GLOBE: No intra- or extraconal masses. Normal contour of globe without masses. CALVARIUM: No fracture. PARANASAL SINUSES: No fluid or mucosal thickening. SOFT TISSUES: No mass or hematoma. OTHER: No other significant finding. IMPRESSION: No acute intracranial findings. EVIDENCE OF ACUTE STROKE: NO. COMMENT: Quality ID # [id number]: Final reports with documentation of one or more dose reduction techniques (e.g., Automated exposure control, adjustment of the mA and/or kV according to patient size, use of iterative reconstruction technique) TECHNICAL DOCUMENTATION: JOB ID: [id number] [place]-72 2010 [employer]- All Rights Reserved Reading location - IP/workstation name: [email or web address]
--- NOTE | 2018-01-07 21:14 | RADIOLOGY REPORT (SQ) ---
EXAM DESCRIPTION: CT FACIAL AREA WITHOUT COMPLETED DATE/TIME: 01/07/2018 8:44 pm REASON FOR STUDY: fall COMPARISON: None. TECHNIQUE: Noncontrasted images through the facial bones and orbits windowed for bone and soft tissu e. Additional coronal and sagittal reconstructed images reviewed. All images stored on PACS. All CT scanners at this facility use dose modulation, iterative reconstruction, and/or weight based d osing when appropriate to reduce radiation dose to as low as reasonably achievable (ALARA). [facility]: Dose Right [facility]: CareDose [facility]: Dose Right [facility]: Teradose 4D [facility]: Smart [employer] RADIATION DOSE: mGy. LIMITATIONS: None. FINDINGS: FACIAL BONES: Minimally nasal bone fracture. No other fracture identified. ORBITS: Intact. No fracture. Symmetric intact globes and retroorbital soft tissues. PARANASAL SINUSES: Clear. No significant mucosal thickening, mass or fluid. No nasal polyps. Maxill va sinus outlets are patent. SOFT TISSUES: No mass or edema. INFERIOR BRAIN: Limited view. No acute findings. OTHER: No other significant finding. IMPRESSION: Minimally nasal bone fracture, possibly chronic. No other fracture identified. TECHNICAL DOCUMENTATION: JOB ID: [id number] [place]-72 Quality ID # [id number]: Final reports with documentation of one or more dose reduction techniques (e.g., Au tomated exposure control, adjustment of the mA and/or kV according to patient size, use of iterative reconstruction technique) 2010 [employer]- All Rights Reserved Reading location - IP/workstation name: [email or web address]
[2018-01-07 21:25] LABS: ANION GAP 10 (5-19); BLOOD UREA NITROGEN 28 mg/dL (7-20); CALCIUM 9.2 mg/dL (8.4-10.2); CARBON DIOXIDE 31 mmol/L (22-30); CHLORIDE 103 mmol/L (98-107); GLUCOSE 120 mg/dL (75-110); POTASSIUM 4.4 mmol/L (3.6-5.0)
--- NOTE | 2018-01-07 21:47 | ER Document Report ---
ED Head/Face/Scalp Injury - General Chief Complaint: Nose Bleed Stated Complaint: FALL/NOSE BLEED Time Seen by Provider: 01/07/18 20:16 Notes: Patient is a 72-year-old female comes emergency department for chief complaint of nosebleeds, facial abrasions. Patient was sitting in an office chair on Friday when she fell asleep and fell forward, she landed on her face on the rug. She bled for several hours from facial abrasions and the nosebleed was stopped by pinching. She states that 2 different times today her nose and started bleeding which prompted her to come for evaluation (first time was blowing the nose, second time was straining to get out of a chair). Both nosebleed stopped with pinching after several minutes. She denies loss of consciousness, vomiting, severe headaches. She is on Xarelto for atrial fibrillation. TRAVEL OUTSIDE OF THE [place] IN LAST 30 DAYS: No - Related Data Allergies/Adverse Reactions: diazepam [From Valium] Allergy (Verified 01/07/18 20:03) "Ants crawling on my skin" oxycodone [From Percocet] Adverse Reaction (Unknown, Verified 01/07/18 20:03) Nightmares Past Medical History - General Information source: Patient - Social History Smoking Status: Never Smoker Chew tobacco use (# tins/day): No Frequency of alcohol use: None Drug Abuse: None Lives with: Alone Family History: Hypertension Patient has suicidal ideation: No Patient has homicidal ideation: No - Past Medical History Cardiac Medical History: Reports: Hx Atrial Fibrillation, Hx Hypercholesterolemia, Hx Hypertension Pulmonary Medical History: Denies: Hx Tuberculosis Neurological Medical History: Denies: Hx Seizures Renal/ Medical History: Reports: Hx Ovarian Cysts. Denies: Hx Peritoneal Dialysis Malignancy Medical History: Reports: Hx Breast Cancer - R breast cancer 13 yrs ago. GI Medical History: Reports: Hx Gastroesophageal Reflux Disease Musculoskeletal Medical History: Reports Hx Arthritis - Knees, hands, Reports Hx Musculoskeletal Trauma Traumatic Medical History: Reports: Hx Fractures - right hip Past Surgical History: Reports: Hx Appendectomy - Over 50 yrs ago., Hx Genitourinary Surgery, Hx Gynecologic Surgery - ovary right removed, Hx Mastectomy - Right, Hx Orthopedic Surgery - Wrist, hip, Hx Tonsillectomy - Over 50 yrs ago., Other - hernia repair. Denies: Hx Hysterectomy, Hx Pacemaker - Immunizations Hx Diphtheria, Pertussis, Tetanus Vaccination: Yes Hx Pneumococcal Vaccination: 02/21/15 Review of Systems - Review of Systems Constitutional: No symptoms reported EENT: See HPI Cardiovascular: No symptoms reported Respiratory: No symptoms reported Gastrointestinal: No symptoms reported Genitourinary: No symptoms reported Female Genitourinary: No symptoms reported Musculoskeletal: See HPI Skin: No symptoms reported Hematologic/Lymphatic: No symptoms reported Neurological/Psychological: See HPI Physical Exam - Vital signs Vitals: Temp Pulse Resp BP Pulse Ox 97.7 F 59 L 16 104/46 L 96 01/07/18 20:10 01/07/18 20:10 01/07/18 20:10 01/07/18 20:10 01/07/18 20:10 - Notes Notes: GENERAL: Alert, interacts well. No acute distress. HEAD: Normocephalic, abrasion over the nasal bridge and over the right forehead areas. EYES: Pupils equal, round, and reactive to light. Extraocular movements intact. ENT: Oral mucosa moist, tongue midline. Unremarkable ear, ear canal, TM exam. There is evidence of trauma epistaxis in the left nasal passage this is at the very back of the anterior area. No septal hematoma. Remaining ENT exam unremarkable. NECK: Full range of motion. Supple. Trachea midline. LUNGS: Clear to auscultation bilaterally, no wheezes, rales, or rhonchi. No respiratory distress. HEART: Regular rate and rhythm. No murmur ABDOMEN: Soft, non-tender. Non-distended. Bowel sounds present in all 4 quadrants. EXTREMITIES: Moves all 4 extremities spontaneously. No edema, normal radial and dorsalis pedis pulses bilaterally. No cyanosis. BACK: no cervical, thoracic, lumbar midline tenderness. No saddle anesthesia, normal distal neurovascular exam. NEUROLOGICAL: Alert and oriented x3. Normal speech. [cranial nerves II through XII grossly intact]. PSYCH: Normal affect, normal mood. SKIN: Warm, dry, normal turgor. No rashes or lesions noted. Course - Re-evaluation Re-evalutation: CT of the head, face reviewed and shows small nasal bone fracture but no other abnormalities. No current epistaxis. Event happened around 3 days ago. No current interventions necessary. Discussed nosebleed instructions and precautions, ENT follow-up, return precautions. Patient states satisfaction and agreement. - Vital Signs Vital signs: Temp Pulse Resp BP Pulse Ox 97.7 F 56 L 16 104/38 L 98 01/07/18 20:10 01/07/18 22:15 01/07/18 22:15 01/07/18 22:15 01/07/18 22:15 - Laboratory Result Diagrams: 01/07/18 20:55 01/07/18 20:55 Laboratory results interpreted by me: 01/07/18 01/07/18 01/07/18 20:55 20:55 20:55 Hgb 11.7 L Hct 35.1 L APTT 40.9 H Carbon Dioxide 31 H BUN 28 H Est GFR (Non-Af Amer) 49 L Glucose 120 H Discharge - Discharge Clinical Impression: Epistaxis Facial abrasion Qualifiers: Encounter type: initial encounter Qualified Code(s): S00.81XA - Abrasion of other part of head, initial encounter Nasal bone fracture Qualifiers: Encounter type: initial encounter Fracture type: closed Qualified Code(s): S02.2XXA - Fracture of nasal bones, initial encounter for closed fracture Condition: Stable Disposition: HOME, SELF-CARE Additional Instructions: There is a significant chance of re-bleeding following a nosebleed. Proper care makes this less likely. Do not touch the nose for 24 hours. Do not blow the nose forcefully for one week. After 24 hours, gently apply Vaseline or antibiotic ointment to both nostrils with the tip of a finger or Q-tip, three times a day, for one week. It's normal to have a bloody mucous discharge for a few days. If active bleeding recurs, blow all the blood from the nose, then sit quietly and pinch the nose as firmly as possible for 10 minutes. If this does not stop the bleeding, return for further care. Your imaging shows a small nasal bone fracture, no other abnormalities were noted. Please follow-up with the ENT referral for additional evaluation for nasal bone fracture and nosebleeds (see listed information below). Call tomorrow to make the appointment. Return for any concerning symptoms. [facility] Address: [address] [place] [address] , [place] [address] Referrals: GEORGI MICHAEL MD [EMERITUS] - Follow up as needed
[2018-01-07 22:42] VITALS: BP 104/38
== END 2018-01-07 22:20 | disposition home or self-care (01) ==
LOC: ER 19:58
DX: S02.2XXA Fracture of nasal bones, initial encounter for closed fracture (principal); S00.81XA Abrasion of other part of head, initial encounter; R04.0 Epistaxis; W07.XXXA Fall from chair, initial encounter; I48.91 Unspecified atrial fibrillation; E78.00 Pure hypercholesterolemia, unspecified; I10 Essential (primary) hypertension; Z85.3 Personal history of malignant neoplasm of breast
CPT/HCPCS: 36415; 70450; 70486; 80048; 85025; 85610; 85730; 99284

== ENCOUNTER → 2018-02-12 | Outpatient (CLI) | payer MEDICARE, OTHER ==
[2018-02-12 10:52] LABS: HEMATOCRIT 32.3 % (36.0-47.0); HEMOGLOBIN 11.2 g/dL (12.0-15.5); MEAN CORPUSCULAR HEMOGLOBIN 30.5 pg (27.0-33.4); MEAN CORPUSCULAR HGB CONC 34.5 g/dL (32.0-36.0); MEAN CORPUSCULAR VOLUME 88 fl (80-97); PLATELET COUNT 233 10^3/uL (150-450); RED BLOOD COUNT 3.65 10^6/uL (3.72-5.28); RED CELL DISTRIBUTION WIDTH 13.8 % (11.5-14.0); WHITE BLOOD COUNT 5.2 10^3/uL (4.0-10.5)
[2018-02-12 11:08] LABS: APPEARANCE,URINE CLEAR; BILIRUBIN,URINE NEGATIVE (NEGATIVE); COLOR,URINE YELLOW; GLUCOSE, URINE NEGATIVE (NEGATIVE); KETONES,URINE NEGATIVE (NEGATIVE); LEUKOCYTE ESTERASE,URINE MODERATE (NEGATIVE); NITRITE,URINE NEGATIVE (NEGATIVE); PROTEIN,URINE NEGATIVE (NEGATIVE); URINE SPECIFIC GRAVITY 1.019; UROBILINOGEN,URINE NEGATIVE mg/dL (<2.0)
[2018-02-12 11:12] LABS: CHOLESTEROL 142.01 mg/dL (0-200); TRIGLYCERIDES 77 mg/dL (<150)
[2018-02-12 11:13] LABS: ALANINE AMINOTRANSFERASE 43 U/L (9-52); ALBUMIN 3.8 g/dL (3.5-5.0); ALKALINE PHOSPHATASE 57 U/L (38-126); ANION GAP 9 (5-19); ASPARTATE AMINO TRANSFERASE 29 U/L (14-36); BILIRUBIN,DIRECT 0.2 mg/dL (0.0-0.4); BILIRUBIN,TOTAL 0.6 mg/dL (0.2-1.3); BLOOD UREA NITROGEN 31 mg/dL (7-20); CALCIUM 9.1 mg/dL (8.4-10.2); CARBON DIOXIDE 29 mmol/L (22-30); CHLORIDE 101 mmol/L (98-107); GLUCOSE 99 mg/dL (75-110); POTASSIUM 4.3 mmol/L (3.6-5.0); SODIUM 139.4 mmol/L (137-145); TOTAL PROTEIN 6.6 g/dL (6.3-8.2)
[2018-02-12 11:23] LABS: DIRECT LDL 53 mg/dL (<100)
== END ==
LOC: OD 09:42
PROVIDERS: ATTEND Internal Medicine Cardiovascular Disease
DX: I48.0 Paroxysmal atrial fibrillation (principal); E78.00 Pure hypercholesterolemia, unspecified; Z79.899 Other long term (current) drug therapy; Z79.01 Long term (current) use of anticoagulants
CPT/HCPCS: 36415; 80048; 80061; 80076; 81001; 82272; 83735; 85027; 85730

== ENCOUNTER 2018-03-13 13:56 | Emergency (ER) | payer MEDICARE, OTHER ==
--- NOTE | 2018-03-13 14:34 | ER Document Report ---
ED Medical Screen (RME) - General Chief Complaint: Black/Tarry Stools Stated Complaint: LEG SWELLING/BLACK STOOL Time Seen by Provider: 03/13/18 14:31 Mode of Arrival: Wheelchair Information source: Patient Notes: This is a 72-year-old female with a history of atrial fibrillation (on Eliquis) , anemia who presents to the emergency room with right lower extremity pain and swelling. Patient states that 3 days ago she was sitting down fell and experienced pain behind the right knee. She states that the next day, she started having increased swelling of the lower extremity. She also reports that she has had some black stool. She has had problems with GI bleeding in the past from Pradaxa. She denies any abdominal pain. TRAVEL OUTSIDE OF THE [place] IN LAST 30 DAYS: No - Related Data Allergies/Adverse Reactions: diazepam [From Valium] Allergy (Verified 03/13/18 13:58) "Ants crawling on my skin" oxycodone [From Percocet] Adverse Reaction (Unknown, Verified 03/13/18 13:58) Nightmares Past Medical History - Social History Frequency of alcohol use: None Drug Abuse: None - Past Medical History Cardiac Medical History: Reports: Hx Atrial Fibrillation, Hx Hypercholesterolemia, Hx Hypertension Pulmonary Medical History: Denies: Hx Tuberculosis Neurological Medical History: Denies: Hx Seizures Renal/ Medical History: Reports: Hx Ovarian Cysts. Denies: Hx Peritoneal Dialysis Malignancy Medical History: Reports: Hx Breast Cancer - R breast cancer 13 yrs ago. GI Medical History: Reports: Hx Gastroesophageal Reflux Disease Musculoskeltal Medical History: Reports Hx Arthritis - Knees, hands, Reports Hx Musculoskeletal Trauma Traumatic Medical History: Reports: Hx Fractures - right hip Past Surgical History: Reports: Hx Appendectomy - Over 50 yrs ago., Hx Genitourinary Surgery, Hx Gynecologic Surgery - ovary right removed, Hx Mastectomy - Right, Hx Orthopedic Surgery - Wrist, hip, Hx Tonsillectomy - Over 50 yrs ago., Other - hernia repair. Denies: Hx Hysterectomy, Hx Pacemaker - Immunizations Hx Diphtheria, Pertussis, Tetanus Vaccination: Yes Physical Exam - Vital signs Vitals: Temp Pulse Resp BP Pulse Ox 98.6 F 73 16 122/49 L 98 03/13/18 14:03 03/13/18 14:03 03/13/18 14:03 03/13/18 14:03 03/13/18 14:03 Course - Vital Signs Vital signs: Temp Pulse Resp BP Pulse Ox 98.6 F 73 16 122/49 L 98 03/13/18 14:03 03/13/18 14:03 03/13/18 14:03 03/13/18 14:03 03/13/18 14:03 Doctor's Discharge - Discharge Referrals: GEORGI MICHAEL MD [Primary Care Provider] - Follow up as needed
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
[2018-03-13 15:26] LABS: ABSOLUTE BASOPHILS # (AUTO) 0.1 10^3/uL (0.0-0.2); ABSOLUTE EOSINOPHILS # (AUTO) 0.2 10^3/uL (0.0-0.6); ABSOLUTE LYMPHOCYTES (AUTO) 0.8 10^3/uL (0.5-4.7); ABSOLUTE MONOCYTES (AUTO) 0.6 10^3/uL (0.1-1.4); ABSOLUTE NEUT (AUTO) 4.4 10^3/uL (1.7-8.2); BASOPHILS % (AUTO) 1.1 % (0-2); EOSINOPHILS % (AUTO) 2.7 % (0-6); HEMATOCRIT 30.4 % (36.0-47.0); HEMOGLOBIN 10.4 g/dL (12.0-15.5); LYMPHOCYTES % (AUTO) 13.7 % (13-45); MEAN CORPUSCULAR HGB CONC 34.1 g/dL (32.0-36.0); MEAN CORPUSCULAR VOLUME 88 fl (80-97); MONOCYTES % (AUTO) 9.2 % (3-13); PLATELET COUNT 269 10^3/uL (150-450); RED BLOOD COUNT 3.45 10^6/uL (3.72-5.28); RED CELL DISTRIBUTION WIDTH 13.8 % (11.5-14.0); SEGMENTED NEUTROPHILS % (AUTO) 73.3 % (42-78); TOTAL CELLS COUNTED % (AUTO) 100 %
[2018-03-13 15:46] LABS: ALANINE AMINOTRANSFERASE 23 U/L (9-52); ALKALINE PHOSPHATASE 67 U/L (38-126); ANION GAP 8 (5-19); ASPARTATE AMINO TRANSFERASE 34 U/L (14-36); BILIRUBIN,DIRECT 0.3 mg/dL (0.0-0.4); BILIRUBIN,TOTAL 0.5 mg/dL (0.2-1.3); BLOOD UREA NITROGEN 44 mg/dL (7-20); CALCIUM 9.2 mg/dL (8.4-10.2); CARBON DIOXIDE 30 mmol/L (22-30); CHLORIDE 100 mmol/L (98-107); GLUCOSE 93 mg/dL (75-110); POTASSIUM 4.2 mmol/L (3.6-5.0); SODIUM 138.3 mmol/L (137-145); TOTAL PROTEIN 7.3 g/dL (6.3-8.2)
--- NOTE | 2018-03-13 15:58 | RADIOLOGY REPORT (SQ) ---
EXAM DESCRIPTION: VENOUS UNILATERAL LOWER COMPLETED DATE/TIME: 03/13/2018 3:46 pm REASON FOR STUDY: rle swelling COMPARISON: None. TECHNIQUE: Dynamic and static martin scale and color images acquired of the right leg venous system. S elected spectral images acquired with additional compression and augmentation maneuvers. The contrala teral common femoral vein and saphenofemoral junction were also imaged. Images stored on PACS. LIMITATIONS: None. FINDINGS: COMMON FEMORAL: Normal phasicity, compression and augmentation. No visualized echogenic ma terial on martin scale. No defects on color images. FEMORAL: Normal compression and augmentation. No visualized echogenic material on martin scale. No defe cts on color images. POPLITEAL: Normal compression, augmentation. No visualized echogenic material on martin scale. No defec ts on color images. CALF VESSELS: Normal compression, augmentation. No visualized echogenic material on martin scale. No de fects on color images. GSV and SSV: Normal compression, augmentation. No visualized echogenic material on martin scale. No def ects on color images. ANY DEEP VENOUS INSUFFICIENCY: Not evaluated. ANY EVIDENCE OF POPLITEAL CYST: Yes OTHER: No other significant finding. CONTRALATERAL COMMON FEMORAL VEIN AND SAPHENOFEMORAL JUNCTION: Normal phasicity, compression and augmentation. No visualized echogenic material on martin scale. No de fects on color images. IMPRESSION: NO EVIDENCE OF DVT OR SVT IN THE RIGHT LEG. TECHNICAL DOCUMENTATION: JOB ID: [id number] 2010 [employer]- All Rights Reserved Reading location - IP/workstation name: [email or web address]
--- NOTE | 2018-03-13 16:00 | RADIOLOGY REPORT (SQ) ---
EXAM DESCRIPTION: TIBIA FIBULA RIGHT COMPLETED DATE/TIME: 03/13/2018 3:49 pm REASON FOR STUDY: rle pain s/p fall COMPARISON: None. NUMBER OF VIEWS: Two views. TECHNIQUE: Two radiographic images acquired of the right tibia and fibula to include the knee and an kle in at least one projection. LIMITATIONS: None. FINDINGS: MINERALIZATION: Normal. BONES: No acute fracture or dislocation. Bony excrescence in the posterior tibial metaphysis with br oadening of the proximal tibial-fibular joint. SOFT TISSUES: No obvious swelling or foreign body. OTHER: No other significant finding. IMPRESSION: No fracture. TECHNICAL DOCUMENTATION: JOB ID: [id number] 2010 [employer]- All Rights Reserved Reading location - IP/workstation name: [email or web address]
[2018-03-13 17:46] VITALS: BP 122/41
== END 2018-03-13 17:48 | disposition home or self-care (01) ==
LOC: ER 13:56
DX: R60.9 Edema, unspecified (principal); M66.0 Rupture of popliteal cyst; K92.1 Melena; Z88.6 Allergy status to analgesic agent; I48.91 Unspecified atrial fibrillation; E78.00 Pure hypercholesterolemia, unspecified; I10 Essential (primary) hypertension
CPT/HCPCS: 36415; 80053; 82272; 85025; 93971; 99284

== ENCOUNTER → 2018-03-23 | Outpatient (CLI) | payer MEDICARE, OTHER ==
[2018-03-23 10:44] LABS: HEMATOCRIT 29.3 % (36.0-47.0); HEMOGLOBIN 9.9 g/dL (12.0-15.5); MEAN CORPUSCULAR HGB CONC 33.8 g/dL (32.0-36.0); MEAN CORPUSCULAR VOLUME 89 fl (80-97); PLATELET COUNT 316 10^3/uL (150-450); RED BLOOD COUNT 3.31 10^6/uL (3.72-5.28); RED CELL DISTRIBUTION WIDTH 14.3 % (11.5-14.0); WHITE BLOOD COUNT 5.3 10^3/uL (4.0-10.5)
[2018-03-23 11:02] LABS: APPEARANCE,URINE CLEAR; BILIRUBIN,URINE NEGATIVE (NEGATIVE); COLOR,URINE YELLOW; GLUCOSE, URINE NEGATIVE (NEGATIVE); KETONES,URINE NEGATIVE (NEGATIVE); LEUKOCYTE ESTERASE,URINE LARGE (NEGATIVE); NITRITE,URINE NEGATIVE (NEGATIVE); PROTEIN,URINE NEGATIVE (NEGATIVE); URINE SPECIFIC GRAVITY 1.013; UROBILINOGEN,URINE NEGATIVE mg/dL (<2.0)
[2018-03-23 11:04] LABS: ALANINE AMINOTRANSFERASE 32 U/L (9-52); ALBUMIN 3.8 g/dL (3.5-5.0); ALKALINE PHOSPHATASE 70 U/L (38-126); ANION GAP 8 (5-19); ASPARTATE AMINO TRANSFERASE 30 U/L (14-36); BILIRUBIN,DIRECT 0.2 mg/dL (0.0-0.4); BILIRUBIN,TOTAL 0.6 mg/dL (0.2-1.3); BLOOD UREA NITROGEN 22 mg/dL (7-20); CARBON DIOXIDE 30 mmol/L (22-30); CHLORIDE 100 mmol/L (98-107); GLUCOSE 97 mg/dL (75-110); POTASSIUM 4.3 mmol/L (3.6-5.0); SODIUM 137.8 mmol/L (137-145); TOTAL PROTEIN 6.5 g/dL (6.3-8.2)
== END ==
LOC: OD 09:28
PROVIDERS: ATTEND Internal Medicine Cardiovascular Disease
DX: I48.0 Paroxysmal atrial fibrillation (principal); Z79.01 Long term (current) use of anticoagulants; Z79.899 Other long term (current) drug therapy
CPT/HCPCS: 36415; 80048; 80076; 81001; 82272; 83735; 85027; 85730

== ENCOUNTER → 2018-04-29 | Outpatient (CLI) | payer MEDICARE, OTHER ==
[2018-04-29 10:09] LABS: ANION GAP 9 (5-19); BLOOD UREA NITROGEN 32 mg/dL (7-20); CARBON DIOXIDE 29 mmol/L (22-30); CHLORIDE 100 mmol/L (98-107); GLUCOSE 101 mg/dL (75-110); POTASSIUM 4.3 mmol/L (3.6-5.0); SODIUM 138.3 mmol/L (137-145)
== END ==
LOC: LAB 09:35
PROVIDERS: ATTEND Internal Medicine Cardiovascular Disease
DX: I48.0 Paroxysmal atrial fibrillation (principal)
CPT/HCPCS: 36415; 80048

== ENCOUNTER → 2018-07-29 | Outpatient (CLI) | payer MEDICARE, OTHER ==
[2018-07-29 09:19] LABS: HEMATOCRIT 35.6 % (36.0-47.0); HEMOGLOBIN 12.3 g/dL (12.0-15.5); MEAN CORPUSCULAR HEMOGLOBIN 30.9 pg (27.0-33.4); MEAN CORPUSCULAR HGB CONC 34.5 g/dL (32.0-36.0); MEAN CORPUSCULAR VOLUME 89 fl (80-97); PLATELET COUNT 225 10^3/uL (150-450); RED BLOOD COUNT 3.98 10^6/uL (3.72-5.28); RED CELL DISTRIBUTION WIDTH 14.8 % (11.5-14.0); WHITE BLOOD COUNT 5.1 10^3/uL (4.0-10.5)
[2018-07-29 09:32] LABS: APPEARANCE,URINE CLEAR; BILIRUBIN,URINE NEGATIVE (NEGATIVE); COLOR,URINE STRAW; GLUCOSE, URINE NEGATIVE (NEGATIVE); KETONES,URINE NEGATIVE (NEGATIVE); LEUKOCYTE ESTERASE,URINE MODERATE (NEGATIVE); NITRITE,URINE NEGATIVE (NEGATIVE); PROTEIN,URINE NEGATIVE (NEGATIVE); UROBILINOGEN,URINE NEGATIVE mg/dL (<2.0)
[2018-07-29 09:46] LABS: CHOLESTEROL 130.86 mg/dL (0-200); CREATINE KINASE 59 U/L (30-135); TRIGLYCERIDES 85 mg/dL (<150)
[2018-07-29 09:50] LABS: ALANINE AMINOTRANSFERASE 44 U/L (9-52); ALBUMIN 4.2 g/dL (3.5-5.0); ALKALINE PHOSPHATASE 68 U/L (38-126); ANION GAP 9 (5-19); ASPARTATE AMINO TRANSFERASE 30 U/L (14-36); BILIRUBIN,DIRECT 0.1 mg/dL (0.0-0.4); BILIRUBIN,TOTAL 0.5 mg/dL (0.2-1.3); BLOOD UREA NITROGEN 31 mg/dL (7-20); CALCIUM 9.1 mg/dL (8.4-10.2); CARBON DIOXIDE 32 mmol/L (22-30); CHLORIDE 100 mmol/L (98-107); GLUCOSE 98 mg/dL (75-110); POTASSIUM 4.5 mmol/L (3.6-5.0); SODIUM 140.5 mmol/L (137-145); TOTAL PROTEIN 6.6 g/dL (6.3-8.2)
[2018-07-29 09:57] LABS: DIRECT LDL 60 mg/dL (<100)
== END ==
LOC: OD 08:27
PROVIDERS: ATTEND Physician Assistant
DX: E78.00 Pure hypercholesterolemia, unspecified (principal); I48.0 Paroxysmal atrial fibrillation; Z79.01 Long term (current) use of anticoagulants; Z79.899 Other long term (current) drug therapy
CPT/HCPCS: 36415; 80048; 80061; 80076; 81001; 82272; 82550; 83735; 85027; 85730

== ENCOUNTER → 2018-10-26 | Outpatient (CLI) | payer MEDICARE, OTHER ==
[2018-10-26 10:04] LABS: HEMATOCRIT 34.1 % (36.0-47.0); HEMOGLOBIN 11.7 g/dL (12.0-15.5); MEAN CORPUSCULAR HGB CONC 34.2 g/dL (32.0-36.0); MEAN CORPUSCULAR VOLUME 91 fl (80-97); PLATELET COUNT 188 10^3/uL (150-450); RED BLOOD COUNT 3.76 10^6/uL (3.72-5.28); RED CELL DISTRIBUTION WIDTH 14.1 % (11.5-14.0); WHITE BLOOD COUNT 4.6 10^3/uL (4.0-10.5)
[2018-10-26 10:09] LABS: APPEARANCE,URINE CLEAR; BILIRUBIN,URINE NEGATIVE (NEGATIVE); COLOR,URINE STRAW; GLUCOSE, URINE NEGATIVE (NEGATIVE); KETONES,URINE NEGATIVE (NEGATIVE); LEUKOCYTE ESTERASE,URINE SMALL (NEGATIVE); NITRITE,URINE NEGATIVE (NEGATIVE); PROTEIN,URINE NEGATIVE (NEGATIVE); URINE SPECIFIC GRAVITY 1.012; UROBILINOGEN,URINE NEGATIVE mg/dL (<2.0)
[2018-10-26 10:18] LABS: ALANINE AMINOTRANSFERASE 28 U/L (9-52); ALBUMIN 3.9 g/dL (3.5-5.0); ALKALINE PHOSPHATASE 57 U/L (38-126); ANION GAP 10 (5-19); ASPARTATE AMINO TRANSFERASE 28 U/L (14-36); BILIRUBIN,DIRECT 0.2 mg/dL (0.0-0.4); BILIRUBIN,TOTAL 0.6 mg/dL (0.2-1.3); BLOOD UREA NITROGEN 28 mg/dL (7-20); CALCIUM 9.3 mg/dL (8.4-10.2); CARBON DIOXIDE 29 mmol/L (22-30); CHLORIDE 101 mmol/L (98-107); GLUCOSE 89 mg/dL (75-110); POTASSIUM 4.4 mmol/L (3.6-5.0); SODIUM 140.2 mmol/L (137-145); TOTAL PROTEIN 6.6 g/dL (6.3-8.2)
== END ==
LOC: OD 09:09
PROVIDERS: ATTEND Internal Medicine Cardiovascular Disease
DX: I48.0 Paroxysmal atrial fibrillation (principal); Z79.01 Long term (current) use of anticoagulants; Z79.899 Other long term (current) drug therapy
CPT/HCPCS: 36415; 80048; 80076; 81001; 82272; 83735; 85027; 85730

== ENCOUNTER → 2019-01-27 | Outpatient (CLI) | payer MEDICARE, OTHER ==
[2019-01-27 09:49] LABS: HEMATOCRIT 35.5 % (36.0-47.0); MEAN CORPUSCULAR HEMOGLOBIN 30.5 pg (27.0-33.4); MEAN CORPUSCULAR HGB CONC 33.8 g/dL (32.0-36.0); MEAN CORPUSCULAR VOLUME 90 fl (80-97); PLATELET COUNT 195 10^3/uL (150-450); RED BLOOD COUNT 3.93 10^6/uL (3.72-5.28); RED CELL DISTRIBUTION WIDTH 13.7 % (11.5-14.0); WHITE BLOOD COUNT 4.7 10^3/uL (4.0-10.5)
[2019-01-27 09:54] LABS: APPEARANCE,URINE SLIGHTLY-CLOUDY; BILIRUBIN,URINE NEGATIVE (NEGATIVE); COLOR,URINE YELLOW; GLUCOSE, URINE NEGATIVE (NEGATIVE); KETONES,URINE NEGATIVE (NEGATIVE); LEUKOCYTE ESTERASE,URINE LARGE (NEGATIVE); NITRITE,URINE NEGATIVE (NEGATIVE); PROTEIN,URINE NEGATIVE (NEGATIVE); UROBILINOGEN,URINE NEGATIVE mg/dL (<2.0)
[2019-01-27 10:09] LABS: ALBUMIN 4.2 g/dL (3.5-5.0); ALKALINE PHOSPHATASE 61 U/L (38-126); ANION GAP 6 (5-19); ASPARTATE AMINO TRANSFERASE 29 U/L (14-36); BILIRUBIN,DIRECT 0.1 mg/dL (0.0-0.4); BILIRUBIN,TOTAL 0.4 mg/dL (0.2-1.3); BLOOD UREA NITROGEN 28 mg/dL (7-20); CARBON DIOXIDE 31 mmol/L (22-30); CHLORIDE 102 mmol/L (98-107); GLUCOSE 93 mg/dL (75-110); POTASSIUM 4.2 mmol/L (3.6-5.0); TOTAL PROTEIN 6.8 g/dL (6.3-8.2)
[2019-01-27 10:55] LABS: TRIGLYCERIDES 89 mg/dL (<150)
[2019-01-27 11:05] LABS: DIRECT LDL 65 mg/dL (<100)
== END ==
LOC: OD 09:16
PROVIDERS: ATTEND Internal Medicine Cardiovascular Disease
DX: E78.00 Pure hypercholesterolemia, unspecified (principal); I48.0 Paroxysmal atrial fibrillation; Z79.01 Long term (current) use of anticoagulants; Z79.899 Other long term (current) drug therapy
CPT/HCPCS: 36415; 80048; 80061; 80076; 81001; 82272; 83735; 85027; 85730

== ENCOUNTER → 2019-05-05 | Outpatient (CLI) | payer MEDICARE, OTHER ==
[2019-05-05 10:31] LABS: HEMATOCRIT 36.4 % (36.0-47.0); HEMOGLOBIN 12.6 g/dL (12.0-15.5); MEAN CORPUSCULAR HEMOGLOBIN 31.3 pg (27.0-33.4); MEAN CORPUSCULAR HGB CONC 34.5 g/dL (32.0-36.0); MEAN CORPUSCULAR VOLUME 91 fl (80-97); PLATELET COUNT 203 10^3/uL (150-450); RED BLOOD COUNT 4.01 10^6/uL (3.72-5.28); RED CELL DISTRIBUTION WIDTH 13.5 % (11.5-14.0); WHITE BLOOD COUNT 5.1 10^3/uL (4.0-10.5)
[2019-05-05 11:11] LABS: ALBUMIN 4.2 g/dL (3.5-5.0); ALKALINE PHOSPHATASE 73 U/L (38-126); ANION GAP 6 (5-19); ASPARTATE AMINO TRANSFERASE 32 U/L (14-36); BILIRUBIN,DIRECT 0.1 mg/dL (0.0-0.4); BILIRUBIN,TOTAL 0.5 mg/dL (0.2-1.3); BLOOD UREA NITROGEN 30 mg/dL (7-20); CALCIUM 8.9 mg/dL (8.4-10.2); CARBON DIOXIDE 31 mmol/L (22-30); CHLORIDE 99 mmol/L (98-107); GLUCOSE 96 mg/dL (75-110); POTASSIUM 4.1 mmol/L (3.6-5.0); TOTAL PROTEIN 7.2 g/dL (6.3-8.2)
[2019-05-05 12:04] LABS: APPEARANCE,URINE SLIGHTLY-CLOUDY; BILIRUBIN,URINE NEGATIVE (NEGATIVE); COLOR,URINE STRAW; GLUCOSE, URINE NEGATIVE (NEGATIVE); KETONES,URINE NEGATIVE (NEGATIVE); LEUKOCYTE ESTERASE,URINE LARGE (NEGATIVE); NITRITE,URINE NEGATIVE (NEGATIVE); PROTEIN,URINE NEGATIVE (NEGATIVE); URINE SPECIFIC GRAVITY 1.009; UROBILINOGEN,URINE NEGATIVE mg/dL (<2.0)
== END ==
LOC: OD 09:38
PROVIDERS: ATTEND Internal Medicine Cardiovascular Disease
DX: I48.0 Paroxysmal atrial fibrillation (principal); Z79.01 Long term (current) use of anticoagulants; Z79.899 Other long term (current) drug therapy
CPT/HCPCS: 36415; 80048; 80076; 81001; 82272; 83735; 85027; 85730

== ENCOUNTER → 2019-08-04 | Outpatient (CLI) | payer MEDICARE, OTHER ==
[2019-08-04 09:57] LABS: HEMATOCRIT 34.7 % (36.0-47.0); HEMOGLOBIN 11.9 g/dL (12.0-15.5); MEAN CORPUSCULAR HGB CONC 34.4 g/dL (32.0-36.0); MEAN CORPUSCULAR VOLUME 90 fl (80-97); PLATELET COUNT 194 10^3/uL (150-450); RED BLOOD COUNT 3.85 10^6/uL (3.72-5.28); RED CELL DISTRIBUTION WIDTH 13.7 % (11.5-14.0); WHITE BLOOD COUNT 4.5 10^3/uL (4.0-10.5)
[2019-08-04 10:07] LABS: APPEARANCE,URINE SLIGHTLY-CLOUDY; BILIRUBIN,URINE NEGATIVE (NEGATIVE); COLOR,URINE YELLOW; GLUCOSE, URINE NEGATIVE (NEGATIVE); KETONES,URINE NEGATIVE (NEGATIVE); LEUKOCYTE ESTERASE,URINE LARGE (NEGATIVE); NITRITE,URINE NEGATIVE (NEGATIVE); PROTEIN,URINE NEGATIVE (NEGATIVE); URINE SPECIFIC GRAVITY 1.014; UROBILINOGEN,URINE NEGATIVE mg/dL (<2.0)
[2019-08-04 10:23] LABS: ALKALINE PHOSPHATASE 60 U/L (38-126); ASPARTATE AMINO TRANSFERASE 33 U/L (14-36); BILIRUBIN,TOTAL 0.5 mg/dL (0.2-1.3); BLOOD UREA NITROGEN 24 mg/dL (7-20); CALCIUM 8.7 mg/dL (8.4-10.2); GLUCOSE 92 mg/dL (75-110); POTASSIUM 4.5 mmol/L (3.6-5.0); TOTAL PROTEIN 6.6 g/dL (6.3-8.2)
[2019-08-04 10:29] LABS: ANION GAP 5 (5-19); CARBON DIOXIDE 30 mmol/L (22-30); CHLORIDE 102 mmol/L (98-107)
== END ==
LOC: OD 09:12
PROVIDERS: ATTEND Internal Medicine Cardiovascular Disease
DX: I48.0 Paroxysmal atrial fibrillation (principal); Z79.01 Long term (current) use of anticoagulants; Z79.899 Other long term (current) drug therapy
CPT/HCPCS: 36415; 80048; 80076; 81001; 82272; 83735; 85027; 85730

== ENCOUNTER 2019-10-11 11:35 | Observation (INO) | payer MEDICARE, OTHER ==
[2019-10-11] MEDS ORDERED: METOPROLOL TARTRATE PF/INJ 5 MG/5 ML SDV IV ONE ×2 (11:51→13:16)
--- NOTE | 2019-10-11 12:02 | ER Document Report ---
ED General - General TRAVEL OUTSIDE OF THE [place] IN LAST 30 DAYS: No <YUE MARSH - Last Filed: 10/11/19 14:15> <RIOS PEDROZA - Last Filed: 10/11/19 17:18> - General Chief Complaint: Palpitations Stated Complaint: PALPITATIONS Time Seen by Provider: 10/11/19 11:40 Primary Care Provider: GEORGI STAPLETON MD [EMERITUS] - Follow up as needed - HPI Notes: Chief complaint: Palpitations HPI: Elderly female with history of paroxysmal atrial fibrillation on multiple medications called EMS because of palpitations and rapid heartbeat today. She complained of some mild generalized weakness but no presyncope. No nausea or vomiting. No chest pain. No shortness of breath. Patient says that she "forgot" to take several of her medicines yesterday although she is having some difficulty telling which medications were omitted. EMS gave her 17.5 mg of diltiazem IV during transport. They noted that when I picked her up her heart rate was about 150 and it is down to about 110 now. She is relatively asymptomatic at this time. Patient denies fever. Patient denies vomiting or diarrhea. (YUE MARSH) - Related Data Allergies/Adverse Reactions: diazepam [From Valium] Allergy (Verified 03/13/18 13:58) "Ants crawling on my skin" oxycodone [From Percocet] Adverse Reaction (Unknown, Verified 03/13/18 13:58) Nightmares Past Medical History - General Information source: Patient, Emergency Med Personnel, [facility] Records - Social History Smoking Status: Never Smoker Family History: Reviewed & Not Pertinent, Hypertension - Past Medical History Cardiac Medical History: Reports: Hx Atrial Fibrillation, Hx Hypercholesterolemia, Hx Hypertension Pulmonary Medical History: Denies: Hx Tuberculosis Neurological Medical History: Denies: Hx Seizures Renal/ Medical History: Reports: Hx Ovarian Cysts. Denies: Hx Peritoneal Dialysis Malignancy Medical History: Reports: Hx Breast Cancer - R breast cancer 13 yrs ago. GI Medical History: Reports: Hx Gastroesophageal Reflux Disease Musculoskeletal Medical History: Reports Hx Arthritis - Knees, hands, Reports Hx Musculoskeletal Trauma Traumatic Medical History: Reports: Hx Fractures - right hip Past Surgical History: Reports: Hx Appendectomy - Over 50 yrs ago., Hx Genitourinary Surgery, Hx Gynecologic Surgery - ovary right removed, Hx Maste ctomy - Right, Hx Orthopedic Surgery - Wrist, hip, Hx Tonsillectomy - Over 50 yrs ago., Other - hernia repair. Denies: Hx Hysterectomy, Hx Pacemaker - Immunizations Hx Diphtheria, Pertussis, Tetanus Vaccination: Yes Hx Pneumococcal Vaccination: 02/21/15 <YUE MARSH - Last Filed: 10/11/19 14:15> Review of Systems <YUE MARSH - Last Filed: 10/11/19 14:15> - Review of Systems Notes: Constitutional: Negative for fever. HENT: Negative for sore throat. Eyes: Negative for visual changes. Cardiovascular: As per HPI. Respiratory: Negative for shortness of breath. Gastrointestinal: Negative for abdominal pain, vomiting or diarrhea. Genitourinary: Negative for dysuria. Musculoskeletal: Negative for back pain. Skin: Negative for rash. Neurological: Negative for headaches, weakness or numbness. 10 point ROS negative except as marked above and in HPI. (YUE MARSH) Physical Exam <YUE MARSH - Last Filed: 10/11/19 14:15> - Vital signs Vitals: Resp 17 10/11/19 11:38 - Notes Notes: GENERAL: Elderly female appearing in no acute distress. SKIN: Good turgor no rashes. HEAD: Normocephalic atraumatic. EYES: PERRLA. EOMI. Conjunctivae and sclerae clear. EARS: CANALS AND TMS CLEAR. NOSE: CLEAR. MOUTH: Moist mucosa. Good dentition. No stridor or edema. No drooling. NECK: Supple. No masses or thyromegaly. No adenopathy. Carotids 2+ without bruits. No JVD. BACK: Symmetrical without tenderness. CHEST: Respirations unlabored. Breath sounds clear and symmetrical. HEART: Tachycardic irregularly irregular rhythm. No murmur gallop or rub. ABDOMEN: Soft nontender without masses, organomegaly or rebound. Bowel sounds n ormally active. No bruits. GENITALIA: Deferred. EXTREMITIES: 1+ bilateral pretibial edema. No calf tenderness. Cap refill less than 1.5 seconds. Dorsalis pedis and posterior tibial pulses 3+ and symmetrical. NEUROLOGICAL: GCS 15. Alert and oriented x3. Fluent speech. Cranial nerves II through XII intact. Sensorimotor and cerebellar normal. Normal tone. PSYCHIATRIC: Appropriate affect. (YUE MARSH) Course - Laboratory Result Diagrams: 10/11/19 11:51 10/11/19 11:51 <YUE MARSH - Last Filed: 10/11/19 14:15> - Laboratory Result Diagrams: 10/11/19 11:51 10/11/19 11:51 - Diagnostic Test Radiology reviewed: Image reviewed, Reports reviewed - EKG Interpretation by Me Rate: Tachycardia - 122 Rhythm: A.Fib [place]/QRS: No: Right axis deviation, Left axis deviation <RIOS PEDROZA - Last Filed: 10/11/19 17:18> - Re-evaluation Re-evalutation: 10/11/19 14:00 I spoke with the patient's community service representative Dr. Georgi Stapleton by telephone. We confirmed this lady has a longstanding history of paroxysmal atrial fib and that she apparently has been taken off diltiazem at some time in the past but is been well controlled on Multaq and metoprolol. He agrees that the current episode was probably precipitated by the patient's noncompliance with these meds. I have noted that her potassium and magnesium are both marginally low and we are supplementing both of these. I have given her small titrated doses of IV metoprolol and got her rate down below 100 but she is still in atrial fib. The community service representative is recommended that we watch her for 3 to 4 hours in the ED and if she converts back to normal sinus rhythm she could safely go home and follow-up in the office. If she fails to convert she will need to be admitted. We note that her troponin is normal. Her chest x-ray was normal. She has had no chest pain or shortness of breath. 10/11/19 14:15 Further care of this patient has been turned over to Dr. Rios Pedroza at 1415 hrs. (YUE MARSH) 10/11/19 17:16 Patient was reevaluated approximately 5 PM. Rate is still approximately 100 and the rhythm is atrial fibrillation. Patient states she feels better and has no significant complaints at this time. I did call and speak with her community service representative, Dr. Stapleton. He asked the patient be admitted for further observation as he feels that patient needs to be in sinus rhythm before discharge. I also consulted with the hospitalist and Dr. Wells who will see the patient in consultation. (RIOS PEDROZA) - Vital Signs Vital signs: Temp Pulse Resp BP Pulse Ox 98.0 F 19 113/58 L 98 10/11/19 15:59 10/11/19 16:30 10/11/19 16:30 10/11/19 16:30 - Laboratory Laboratory results interpreted by me: 10/11/19 10/11/19 10/11/19 11:51 11:51 11:51 Hct 35.1 L RDW 14.1 H Lymph % (Auto) 12.6 L Potassium 3.3 L BUN 32 H Est GFR ( Amer) 53 L Est GFR (MDRD) Non-Af 44 L Glucose 52 L NT-Pro-B Natriuret Pep 521 H - EKG Interpretation by Me Additional EKG results interpreted by me: 10/11/19 12:02 Twelve-lead EKG from 1143 hrs. is reviewed contemporaneously by me demonstrating atrial fibrillation with a ventricular rate of 122. No acute ST changes appreciated. (YUE MARSH) Discharge <YUE MARSH - Last Filed: 10/11/19 14:15> - Discharge Admitting Provider: Celeste (Hospitalist) - day to admit Unit Admitted: Telemetry <IROS PEDROZA - Last Filed: 10/11/19 17:18> - Discharge Clinical Impression: Atrial fibrillation with RVR Condition: Stable Disposition: ADMITTED INPATIENT Referrals: GEORGI STAPLETON MD [EMERITUS] - Follow up as needed
--- NOTE | 2019-10-11 12:14 | RADIOLOGY REPORT (SQ) ---
EXAM DESCRIPTION: CHEST SINGLE VIEW IMAGES COMPLETED DATE/TIME: 10/11/2019 12:04 pm REASON FOR STUDY: Atrial fibrillation COMPARISON: 03/26/2016 EXAM PARAMETERS: NUMBER OF VIEWS: One view. TECHNIQUE: Single frontal radiographic view of the chest acquired. RADIATION DOSE: NA LIMITATIONS: None. FINDINGS: LUNGS AND PLEURA: No opacities, masses or pneumothorax. No pleural effusion. Unchanged mi ld elevation of the right hemidiaphragm. MEDIASTINUM AND HILAR STRUCTURES: No masses. Contour normal. Unchanged rightward tracheal deviation at the level of the aortic arch. HEART AND VASCULAR STRUCTURES: Normal heart size. Vascular calcifications. BONES: No acute findings. HARDWARE: No acute findings. Decreased mineralization. OTHER: No other significant finding. IMPRESSION: No evidence of acute cardiopulmonary process. TECHNICAL DOCUMENTATION: JOB ID: [id number] 2010 [employer]- All Rights Reserved Reading location - IP/workstation name: [email or web address]
[2019-10-11 12:20] LABS: ABSOLUTE EOSINOPHILS # (AUTO) 0.1 10^3/uL (0.0-0.6); ABSOLUTE LYMPHOCYTES (AUTO) 0.8 10^3/uL (0.5-4.7); ABSOLUTE MONOCYTES (AUTO) 0.5 10^3/uL (0.1-1.4); ABSOLUTE NEUT (AUTO) 4.5 10^3/uL (1.7-8.2); BASOPHILS % (AUTO) 0.6 % (0-2); EOSINOPHILS % (AUTO) 2.5 % (0-6); HEMATOCRIT 35.1 % (36.0-47.0); HEMOGLOBIN 12.3 g/dL (12.0-15.5); LYMPHOCYTES % (AUTO) 12.6 % (13-45); MEAN CORPUSCULAR HEMOGLOBIN 31.3 pg (27.0-33.4); MEAN CORPUSCULAR HGB CONC 34.9 g/dL (32.0-36.0); MEAN CORPUSCULAR VOLUME 90 fl (80-97); MONOCYTES % (AUTO) 8.9 % (3-13); PLATELET COUNT 183 10^3/uL (150-450); RED BLOOD COUNT 3.92 10^6/uL (3.72-5.28); RED CELL DISTRIBUTION WIDTH 14.1 % (11.5-14.0); SEGMENTED NEUTROPHILS % (AUTO) 75.4 % (42-78); TOTAL CELLS COUNTED % (AUTO) 100 %
[2019-10-11 12:41] LABS: ALKALINE PHOSPHATASE 55 U/L (38-126); ANION GAP 7 (5-19); ASPARTATE AMINO TRANSFERASE 27 U/L (14-36); BILIRUBIN,TOTAL 0.4 mg/dL (0.2-1.3); BLOOD UREA NITROGEN 32 mg/dL (7-20); CALCIUM 9.3 mg/dL (8.4-10.2); CARBON DIOXIDE 28 mmol/L (22-30); CHLORIDE 103 mmol/L (98-107); POTASSIUM 3.3 mmol/L (3.6-5.0); TOTAL PROTEIN 6.8 g/dL (6.3-8.2)
[2019-10-11 12:42] LABS: GLUCOSE 52 mg/dL (75-110)
[2019-10-11 12:51] LABS: NT PRO BNP 521 pg/mL (<125)
[2019-10-11 12:52] LABS: TROPONIN I < 0.012 ng/mL
[2019-10-11] MEDS ORDERED: POTASSIUM CHLORIDE 20 MEQ PACKET PO ONE (12:59)
[2019-10-11] MEDS: MAGNESIUM SULFATE/D5W 1 GM/100 ML RTUPB IV SCH ×2 (13:07→14:39)
[2019-10-11] MEDS ORDERED: DRONEDARONE HYDROCHLORIDE 400 MG TABLET PO ONE (13:55)
[2019-10-11] MEDS ORDERED: METOPROLOL SUCCINATE 25 MG TAB.SR.24H PO ONE (13:56)
[2019-10-11] MEDS ORDERED: ACETAMINOPHEN 325 MG TABLET PO PRN (17:43)
[2019-10-11] MEDS ORDERED: MAGNESIUM HYDROXIDE SUSP 30 ML UDCUP PO PRN (17:43)
[2019-10-11] MEDS ORDERED: ONDANSETRON HCL INJ/PF 4 MG/2 ML SDV IV PRN (17:43)
[2019-10-11] MEDS ORDERED: MAG HYDROX/AL HYDROX/SIMETH SUSP 30 ML UDCUP PO PRN (17:43)
[2019-10-11] MEDS ORDERED: ONDANSETRON 4 MG TAB.RAPDIS PO PRN (17:43)
[2019-10-11] MEDS ORDERED: HYDROCODONE/ACETAMINOPHEN 7.5-325 MG TABLET PO PRN (17:51)
--- NOTE | 2019-10-11 18:08 | PDOC H&P ---
History of Present Illness Admission Date/PCP: 10/11/19 17:37 BLAINE ESTEBAN MD Patient complains of: Palpitations History of Present Illness: CONOR REDDY is a 74 year old female With the following active problems 1. Paroxysmal atrial fibrillation 2. Systemic hypertension 3. Dyslipidemia 4. Systemic anticoagulation-apixaban Patient reports at least 2 years history of paroxysmal atrial fibrillation. She has been on a rhythm control strategy with systemic anticoagulation with apixaban and dronedarone as antiarrhythmic. She presented with atrial fibrillation rapid ventricular response. At the time of my evaluation her ventricular rate is between 90 to 100 bpm and the patient feels much better. She does not endorse any symptoms at the time of my evaluation. Her primary orchestra teacher in the community wanted the patient to be observed but he does not meet hospital calls thus I was asked to evaluate. She does not report smoking. No surgeries reported No familial illnesses reported to me. Past Medical History Cardiac Medical History: Reports: Atrial Fibrillation, Hyperlipidema, Hypertension Pulmonary Medical History: Denies: Tuberculosis Neurological Medical History: Denies: Seizures Malignancy Medical History: Reports: Breast Cancer - R breast cancer 13 yrs ago. GI Medical History: Reports: Gastroesophageal Reflux Disease Musculoskeltal Medical History: Reports: Arthritis - Knees, hands Hematology: Reports: Anemia Past Surgical History Past Surgical History: Reports: Appendectomy - Over 50 yrs ago., Mastectomy - Right, Orthopedic Surgery - Wrist, hip, Tonsillectomy - Over 50 yrs ago., Other - hernia repair Denies: Hysterectomy, Pacemaker Social History Smoking Status: Never Smoker Frequency of Alcohol Use: None Hx Recreational Drug Use: No Drugs: None Hx Prescription Drug Abuse: No Family History Family History: Reviewed & Not Pertinent, Hypertension Parental Family History Reviewed: Yes - No familial illnesses reported to me Children Family History Reviewed: NA Sibling(s) Family History Reviewed.: NA Medication/Allergy Home Medications: Apixaban [Eliquis 5 mg Tablet] 5 mg PO BID 03/05/17 Ascorbic Acid [Vitamin C] 250 mg PO DAILY 03/05/17 Atorvastatin Calcium [Lipitor 10 mg Tablet] 10 mg PO QHS 03/05/17 Azelaic Acid [Finacea] 1 applic TP DAILY 03/05/17 Biotin 1,200 mcg PO DAILY 03/05/17 Calcium Carbonate [Calcium] 1,000 mg PO DAILY 03/05/17 Cholecalciferol (Vitamin D3) [Vitamin D3 2000 unit Tablet] 2,000 unit PO DAILY 03/05/17 Cyanocobalamin (Vitamin B-12) [Vitamin B-12] 500 mcg PO DAILY 03/05/17 Diltiazem HCl [Diltiazem 24Hr Cd] 120 mg PO DAILY 03/05/17 Dronedarone Hydrochloride [Multaq 400 mg Tablet] 400 mg PO BID 03/05/17 Hydrochlorothiazide [Hydrodiuril 25 mg Tablet] 25 mg PO QAM 03/05/17 Hydrocodone/Acetaminophen [[place] 7.5-325 mg Tablet] 1 tab PO Q8HP PRN 03/05/17 Loratadine [Claritin] 10 mg PO PRN PRN 03/05/17 Magnesium Oxide [Mag-Ox 400 mg Tablet] 400 mg PO DAILY 03/05/17 Metoprolol Tartrate [Lopressor 25 mg Tablet] 25 mg PO DAILY 03/05/17 Multivitamin [Chewable-Thom] 1 tab PO DAILY 03/05/17 Telmisartan [Micardis 20 mg Tablet] 20 mg PO DAILY 03/05/17 Azelaic Acid [Finacea] 1 applic .ROUTE DAILY 10/11/19 Furosemide [Lasix 20 mg Tablet] 1.5 tab PO CONTINUOUS PRN 10/11/19 Potassium Chloride 20 meq PO DAILY 10/11/19 Allergies/Adverse Reactions: diazepam [From Valium] Allergy (Verified 03/13/18 13:58) "Ants crawling on my skin" oxycodone [From Percocet] Adverse Reaction (Unknown, Verified 03/13/18 13:58) Nightmares Physical Exam Vital Signs: Temp Pulse Resp BP Pulse Ox 98.0 F 20 119/70 98 10/11/19 15:59 10/11/19 17:46 10/11/19 17:30 10/11/19 17:46 Intake & Output 10/10/19 10/11/19 10/12/19 06:59 06:59 06:59 Intake Total 200 Balance 200 Weight 70.56 kg General appearance: PRESENT: no acute distress, cooperative, well-developed, well-nourished Head exam: PRESENT: atraumatic, normocephalic Eye exam: PRESENT: conjunctiva pink, EOMI Mouth exam: PRESENT: moist Respiratory exam: PRESENT: clear to auscultation willam, symmetrical, unlabored Cardiovascular exam: PRESENT: irregular rhythm, +S1, +S2 Pulses: PRESENT: normal radial pulses GI/Abdominal exam: PRESENT: soft Rectal exam: PRESENT: deferred Musculoskeletal exam: PRESENT: normal inspection Neurological exam: PRESENT: alert, awake, oriented to person, oriented to place, oriented to time, oriented to situation Psychiatric exam: PRESENT: appropriate affect Skin exam: PRESENT: dry, intact, normal color Results Laboratory Results: 10/11/19 11:51 10/11/19 11:51 10/11/19 10/11/19 11:51 11:51 WBC 6.0 RBC 3.92 Hgb 12.3 Hct 35.1 L MCV 90 MCH 31.3 MCHC 34.9 RDW 14.1 H Plt Count 183 Seg Neutrophils % 75.4 Sodium 138.0 Potassium 3.3 L Chloride 103 Carbon Dioxide 28 Anion Gap 7 BUN 32 H Creatinine 1.20 Est GFR ( Amer) 53 L Glucose 52 L Calcium 9.3 Magnesium 1.9 Total Bilirubin 0.4 AST 27 Alkaline Phosphatase 55 Total Protein 6.8 Albumin 4.0 10/11/19 11:51 Troponin I < 0.012 NT-Pro-B Natriuret Pep 521 H EKG Comments: Telemetry presently shows atrial fibrillation with ventricular rate between 90 to 100 bpm. Twelve-lead EKG 10/11/2019 Both EKGs done showed atrial fibrillation with rapid ventricular response with some rate related ST depression likely rather than ischemia. Impressions: Chest X-Ray 10/11/19 11:51 IMPRESSION: No evidence of acute cardiopulmonary process. Status: Imported from PACS - No acute process Assessment & Plan - Diagnosis (1) Atrial fibrillation with RVR Is this a current diagnosis for this admission?: Yes Plan: Atrial fibrillation rapid ventricular response with symptoms Presently ventricular rate is much better controlled Would recommend continuing home regimen of medicines Continue dronedarone Continue metoprolol No dose changes recommended Continue systemic anticoagulation with apixaban without interruption Symptomatically improved. (2) Hypertension Is this a current diagnosis for this admission?: Yes Plan: Continue home medications for systemic hypertension.
--- NOTE | 2019-10-11 18:16 | PDOC H&P ---
History of Present Illness Admission Date/PCP: 10/11/19 17:37 BLAINE ESTEBAN MD History of Present Illness: CONOR REDDY is a 74 year old female comes into the emergency room complaining of palpitations but no chest pain. Patient has a history of paroxysmal atrial fib. Patient tells me that earlier this morning she took a long walk in the house and she became somewhat concerned about her who has MS and and became anxious and then she is developed palpitations. she tells me that she has had atrial fib for the last couple years. He also confesses that she has been forgetting to take her nighttime medications. She says she always remembers to take her morning morning medicine s, but frequently will forget her nighttime doses She also tells me that she has been on Multac for some time now. Also currently on Eliquis. Patient presented to the emergency room her heart rate was in the 150s however it is gone down into the upper 90s and low 100s now.. While I am standing in the room talking to her her heart rate has gone anywhere from 87 up to 102. Blood pressure stable at 119/70. Patient's acute specialist Dr. Stapleton would like her to be admitted. Since Dr. Stapleton does not come to the hospital Dr. Wells, cardiology was consulted. Dr. Wells recommended continuing her home medications. Patient did get a dose of Multitak in the emergency room as well as Toprol 25 mg. She also got a dose of potassium as well as magnesium. Another dose of Toprol late tonight and resume her regular medications tomorrow morning as well. Patient asked me if she could be discharged home I told her that medically it would be best for her to come in patient was quite worried about her at home who has multiple sclerosis and tells me she did feel better and have less stress if she was discharged home. Patient wanted to leave and I told her the only way she could do that would be to sign out AMA. Did admit to her that we would not be doing a whole lot tonight that she could not do at home, however if she was here and had further problems we could treat her A. fib or RVR. Past Medical History Cardiac Medical History: Reports: Atrial Fibrillation, Hyperlipidema, Hypertension Pulmonary Medical History: Denies: Tuberculosis Neurological Medical History: Denies: Seizures Malignancy Medical History: Reports: Breast Cancer - R breast cancer 13 yrs ago. GI Medical History: Reports: Gastroesophageal Reflux Disease Musculoskeltal Medical History: Reports: Arthritis - Knees, hands Hematology: Reports: Anemia Past Surgical History Past Surgical History: Reports: Appendectomy - Over 50 yrs ago., Mastectomy - Right, Orthopedic Surgery - Wrist, hip, Tonsillectomy - Over 50 yrs ago., Other - hernia repair Denies: Hysterectomy, Pacemaker Social History Smoking Status: Never Smoker Frequency of Alcohol Use: None Hx Recreational Drug Use: No Drugs: None Hx Prescription Drug Abuse: No - Advance Directive Resuscitation Status: Patient has a living will at home Family History Family History: Reviewed & Not Pertinent, Hypertension Parental Family History Reviewed: No Children Family History Reviewed: No Sibling(s) Family History Reviewed.: No Medication/Allergy Home Medications: Apixaban [Eliquis 5 mg Tablet] 5 mg PO BID 03/05/17 Ascorbic Acid [Vitamin C] 250 mg PO DAILY 03/05/17 Atorvastatin Calcium [Lipitor 10 mg Tablet] 10 mg PO QHS 03/05/17 Azelaic Acid [Finacea] 1 applic TP DAILY 03/05/17 Biotin 1,200 mcg PO DAILY 03/05/17 Calcium Carbonate [Calcium] 1,000 mg PO DAILY 03/05/17 Cholecalciferol (Vitamin D3) [Vitamin D3 2000 unit Tablet] 2,000 unit PO DAILY 03/05/17 Cyanocobalamin (Vitamin B-12) [Vitamin B-12] 500 mcg PO DAILY 03/05/17 Diltiazem HCl [Diltiazem 24Hr Cd] 120 mg PO DAILY 03/05/17 Dronedarone Hydrochloride [Multaq 400 mg Tablet] 400 mg PO BID 03/05/17 Hydrochlorothiazide [Hydrodiuril 25 mg Tablet] 25 mg PO QAM 03/05/17 Hydrocodone/Acetaminophen [[place] 7.5-325 mg Tablet] 1 tab PO Q8HP PRN 03/05/17 Loratadine [Claritin] 10 mg PO PRN PRN 03/05/17 Magnesium Oxide [Mag-Ox 400 mg Tablet] 400 mg PO DAILY 03/05/17 Metoprolol Tartrate [Lopressor 25 mg Tablet] 25 mg PO DAILY 03/05/17 Multivitamin [Chewable-Thom] 1 tab PO DAILY 03/05/17 Telmisartan [Micardis 20 mg Tablet] 20 mg PO DAILY 03/05/17 Azelaic Acid [Finacea] 1 applic .ROUTE DAILY 10/11/19 Furosemide [Lasix 20 mg Tablet] 1.5 tab PO CONTINUOUS PRN 10/11/19 Potassium Chloride 20 meq PO DAILY 10/11/19 Allergies/Adverse Reactions: diazepam [From Valium] Allergy (Verified 03/13/18 13:58) "Ants crawling on my skin" oxycodone [From Percocet] Adverse Reaction (Unknown, Verified 03/13/18 13:58) Nightmares Review of Systems Constitutional: ABSENT: chills, fever(s), headache(s), weight gain, weight loss Cardiovascular: PRESENT: palpitations Respiratory: ABSENT: cough, hemoptysis Neurological: ABSENT: abnormal gait, abnormal speech, confusion, dizziness, focal weakness, syncope Psychiatric: ABSENT: anxiety, depression, homidical ideation, suicidal ideation Physical Exam Vital Signs: Temp Pulse Resp BP Pulse Ox 98.0 F 20 119/70 98 10/11/19 15:59 10/11/19 17:46 10/11/19 17:30 10/11/19 17:46 Intake & Output 10/10/19 10/11/19 10/12/19 06:59 06:59 06:59 Intake Total 200 Balance 200 Weight 70.56 kg General appearance: PRESENT: no acute distress, well-developed, well-nourished Respiratory exam: PRESENT: clear to auscultation willam. ABSENT: rales, rhonchi, wheezes Cardiovascular exam: PRESENT: irregular rhythm Neurological exam: PRESENT: alert, awake, oriented to person, oriented to place, oriented to time, oriented to situation, CN II-XII grossly intact. ABSENT: motor sensory deficit Psychiatric exam: PRESENT: anxious, other - Mostly about coming in the hospital jordi and her at home who has MS. Her daughter is going to stay with her jordi Results Laboratory Results: 10/11/19 11:51 10/11/19 11:51 10/11/19 10/11/19 11:51 11:51 WBC 6.0 RBC 3.92 Hgb 12.3 Hct 35.1 L MCV 90 MCH 31.3 MCHC 34.9 RDW 14.1 H Plt Count 183 Seg Neutrophils % 75.4 Sodium 138.0 Potassium 3.3 L Chloride 103 Carbon Dioxide 28 Anion Gap 7 BUN 32 H Creatinine 1.20 Est GFR ( Amer) 53 L Glucose 52 L Calcium 9.3 Magnesium 1.9 Total Bilirubin 0.4 AST 27 Alkaline Phosphatase 55 Total Protein 6.8 Albumin 4.0 10/11/19 11:51 Troponin I < 0.012 NT-Pro-B Natriuret Pep 521 H Impressions: Chest X-Ray 10/11/19 11:51 IMPRESSION: No evidence of acute cardiopulmonary process.
[2019-10-11 18:37] LABS: APPEARANCE,URINE CLEAR; BILIRUBIN,URINE NEGATIVE (NEGATIVE); COLOR,URINE YELLOW; GLUCOSE, URINE NEGATIVE (NEGATIVE); KETONES,URINE NEGATIVE (NEGATIVE); PROTEIN,URINE NEGATIVE (NEGATIVE); URINE SPECIFIC GRAVITY 1.012; UROBILINOGEN,URINE NEGATIVE mg/dL (<2.0)
[2019-10-11] MEDS ORDERED: FAMOTIDINE 20 MG TABLET PO SCH ×2 (19:00→22:00)
[2019-10-11 19:38] LABS: INTERNATIONAL RATION (INR) 1.22; PROTHROMBIN TIME 15.5 SEC (11.4-15.4)
[2019-10-11 19:39] LABS: PARTIAL THROMBOPLASTIN TIME 39.7 SEC (23.5-35.8)
[2019-10-11] MEDS: MAGNESIUM OXIDE 400 MG TABLET PO SCH (20:25)
[2019-10-11] MEDS: APIXABAN 5 MG TABLET PO SCH (20:25)
[2019-10-11] MEDS: POTASSIUM CHLORIDE 10 MEQ TABLET.ER PO SCH (20:25)
[2019-10-11] MEDS ORDERED: ATORVASTATIN CALCIUM 10 MG TABLET PO SCH (22:00)
[2019-10-11] MEDS ORDERED: METOPROLOL TARTRATE 25 MG TABLET PO SCH (22:00)
--- NOTE | 2019-10-11 22:48 | EKG REPORT ---
SEVERITY:- ABNORMAL ECG - ATRIAL FIBRILLATION : Confirmed by: Lucia Banuelos 11-Oct-2019 22:47:39
--- NOTE | 2019-10-11 22:49 | EKG REPORT ---
SEVERITY:- ABNORMAL ECG - A FIB REPOL ABNRM SUGGESTS ISCHEMIA, ANT-LAT LEADS : Confirmed by: Lucia Banuelos 11-Oct-2019 22:48:08
[2019-10-12] MEDS: POTASSIUM CHLORIDE 10 MEQ TABLET.ER PO SCH (05:52)
[2019-10-12 06:26] LABS: ABSOLUTE EOSINOPHILS # (AUTO) 0.2 10^3/uL (0.0-0.6); ABSOLUTE MONOCYTES (AUTO) 0.6 10^3/uL (0.1-1.4); ABSOLUTE NEUT (AUTO) 4.1 10^3/uL (1.7-8.2); BASOPHILS % (AUTO) 0.5 % (0-2); EOSINOPHILS % (AUTO) 3.3 % (0-6); HEMATOCRIT 33.4 % (36.0-47.0); HEMOGLOBIN 11.6 g/dL (12.0-15.5); LYMPHOCYTES % (AUTO) 16.9 % (13-45); MEAN CORPUSCULAR HEMOGLOBIN 30.8 pg (27.0-33.4); MEAN CORPUSCULAR HGB CONC 34.8 g/dL (32.0-36.0); MEAN CORPUSCULAR VOLUME 89 fl (80-97); MONOCYTES % (AUTO) 9.5 % (3-13); PLATELET COUNT 184 10^3/uL (150-450); RED BLOOD COUNT 3.78 10^6/uL (3.72-5.28); RED CELL DISTRIBUTION WIDTH 13.9 % (11.5-14.0); SEGMENTED NEUTROPHILS % (AUTO) 69.8 % (42-78); TOTAL CELLS COUNTED % (AUTO) 100 %; WHITE BLOOD COUNT 5.8 10^3/uL (4.0-10.5)
[2019-10-12 06:47] LABS: ANION GAP 7 (5-19); BLOOD UREA NITROGEN 34 mg/dL (7-20); CARBON DIOXIDE 27 mmol/L (22-30); CHLORIDE 103 mmol/L (98-107); GLUCOSE 111 mg/dL (75-110); POTASSIUM 4.1 mmol/L (3.6-5.0)
[2019-10-12] MEDS ORDERED: HYDROCHLOROTHIAZIDE 25 MG TABLET PO SCH (08:00)
[2019-10-12 08:19] VITALS: BP 118/70
[2019-10-12] MEDS ORDERED: (PENDING PHARMACY ID) (Telmisartan [Micardis 20 Mg Tablet] 20 MG) PO SCH (10:00)
[2019-10-12] MEDS ORDERED: DRONEDARONE HYDROCHLORIDE 400 MG TABLET PO SCH (10:00)
[2019-10-12] MEDS ORDERED: LOSARTAN POTASSIUM 25 MG TABLET PO SCH (10:00)
[2019-10-12] MEDS ORDERED: DOCUSATE SODIUM 100 MG CAPSULE PO SCH (10:00)
[2019-10-12] MEDS ORDERED: METOPROLOL SUCCINATE 25 MG TAB.SR.24H PO SCH (10:00)
[2019-10-12] MEDS ORDERED: DILTIAZEM HCL 120 MG CAP.SR.24H PO SCH (10:00)
[2019-10-12] MEDS: APIXABAN 5 MG TABLET PO SCH (10:10)
[2019-10-12] MEDS: MAGNESIUM OXIDE 400 MG TABLET PO SCH (10:10)
--- NOTE | 2019-10-12 17:54 | PDOC DISCHARGE SUMMARY ---
Impression - Admit/DC Date/PCP Admission Date/Primary Care Provider: 10/11/19 17:37 BLAINE ESTEBAN MD Discharge Date: 10/12/19 - Additional Information Resuscitation Status: Do Not Resuscitate Discharge Diet: Cardiac Discharge Activity: Activity As Tolerated, Balance Activity w/Rest Referrals: GEORGI STAPLETON MD [EMERITUS] - Follow up as needed (-OFFICE IS SEEING PT ONLY BY TELEMED APPTS PLEASE CALL [phone] TO SET UP YOUR FOLLOW UP APPT. -Follow up at earliest available appointment. ) Home Medications: Apixaban [Eliquis 5 mg Tablet] 5 mg PO BID 03/05/17 Ascorbic Acid [Vitamin C] 250 mg PO DAILY 03/05/17 Atorvastatin Calcium [Lipitor 10 mg Tablet] 10 mg PO QHS 03/05/17 Biotin 1,200 mcg PO DAILY 03/05/17 Cholecalciferol (Vitamin D3) [Vitamin D3 2000 unit Tablet] 2,000 unit PO DAILY 03/05/17 Cyanocobalamin (Vitamin B-12) [Vitamin B-12] 500 mcg PO DAILY 03/05/17 Dronedarone Hydrochloride [Multaq 400 mg Tablet] 400 mg PO BID 03/05/17 Hydrochlorothiazide [Hydrodiuril 25 mg Tablet] 25 mg PO QAM 03/05/17 Hydrocodone/Acetaminophen [[place] 7.5-325 mg Tablet] 1 tab PO DAILYP PRN 03/05/17 Loratadine [Claritin] 10 mg PO DAILYP PRN 03/05/17 Magnesium Oxide [Mag-Ox 400 mg Tablet] 400 mg PO DAILY 03/05/17 Multivitamin [Chewable-Thom] 1 tab PO DAILY 03/05/17 Telmisartan [Micardis 20 mg Tablet] 20 mg PO DAILY 03/05/17 Azelaic Acid [Finacea] 1 applic TOP DAILY 10/11/19 Calcium Carbonate [Calcium] 500 mg PO BID 10/11/19 Furosemide [Lasix 20 mg Tablet] 1.5 tab PO MOWEFR@1000 PRN 10/11/19 Metoprolol Succinate [Toprol Xl 25 mg Tab.sr] 25 mg PO DAILY 10/11/19 Potassium Chloride 20 meq PO DAILY 10/11/19 Ubidecarenone [Coq10] 100 mg PO DAILY 10/11/19 Acetaminophen [Tylenol 325 mg Tablet] 650 mg PO Q6HP PRN tablet 10/12/19 History of Present Illiness History of Present Illness: Per H&P by Jos Bonner PA-C: CONOR REDDY is a 74 year old female comes into the e mergency room complaining of palpitations but no chest pain. Patient has a history of paroxysmal atrial fib. Patient tells me that earlier this morning she took a long walk in the house and she became somewhat concerned about her who has MS and and became anxious and then she is developed palpitations. she tells me that she has had atrial fib for the last couple years. He also confesses that she has been forgetting to take her nighttime medications. She says she always remembers to take her morning morning medicines, but frequently will forget her nighttime doses She also tells me that she has been on Multac for some time now. Also currently on Eliquis. Patient presented to the emergency room her heart rate was in the 150s however it is gone down into the upper 90s and low 100s now.. While I am standing in the room talking to her her heart rate has gone anywhere from 87 up to 102. Blood pressure stable at 119/70. Patient's cager operator Dr. Stapleton would like her to be admitted. Since Dr. Stapleton does not come to the hospital Dr. Wells, cardiology was consulted. Dr. Wells recommended continuing her home medications. Patient did get a dose of Multitak in the emergency room as well as Toprol 25 mg. She also got a dose of potassium as well as magnesium. Another dose of Toprol late tonight and resume her regular medications tomorrow morning as well. Patient asked me if she could be discharged home I told her that medically it would be best for her to come in patient was quite worried about her at home who has multiple sclerosis and tells me she did feel better and have less stress if she was discharged home. Patient wanted to leave and I told her the only way she could do that would be to sign out AMA. Did admit to her that we would not be doing a whole lot tonight that she could not do at home, however if she was here and had further problems we could treat her A. fib or RVR. Hospital Course Hospital Course: Distichiasis patient was admitted to the medical floor on continuous cardiac telemetry. Cardiology consultation was obtained; Dr. Wells recommends continuing home medication regiment unchanged. Serial EKGs were monitored; patient remained in sinus rhythm. On telemetry, she did have occasional short runs of V. tach, however, nursing notes that the patient was regulatory and frequently change position; on close review, do believe that these runs are actually artifact. Patient denies further symptoms of palpitation, chest pain, shortness of breath, and dizziness. She is requesting to discharge to home as soon as possible. Patient is discharged in stable condition. She is instructed to resume her home medication regiment. We discussed interventions to help her remember to take her nighttime medications. She was strongly encouraged to cart her own health so that she can continue caring for her as she seems quite focused on him. Recommend she follow-up with her primary care provider within 1 week. Also advised that she contact her primary cager operator, Dr. Stapleton, and notify them of her admission. Follow-up as directed. She is also encouraged to return to the emergency department as needed for any concerning symptoms. Physical Exam Vital Signs: Temp Pulse Resp BP Pulse Ox 98.3 F 58 L 18 118/70 94 10/12/19 10:36 10/12/19 10:36 10/12/19 10:36 10/12/19 10:36 10/12/19 10:36 Intake & Output 10/11/19 10/12/19 10/13/19 06:59 06:59 06:59 Intake Total 650 Balance 650 Weight 74 kg General appearance: PRESENT: no acute distress, cooperative, well-developed, well-nourished Head exam: PRESENT: atraumatic, normocephalic Eye exam: PRESENT: conjunctiva pink, EOMI, PERRLA. ABSENT: scleral icterus Ear exam: PRESENT: normal external ear exam Mouth exam: PRESENT: moist, tongue midline Respiratory exam: PRESENT: clear to auscultation willam, symmetrical, unlabored. ABSENT: rales, rhonchi, wheezes Cardiovascular exam: PRESENT: irregular rhythm, +S1, +S2. ABSENT: diastolic murmur, rubs, systolic murmur Pulses: PRESENT: normal dorsalis pedis pul Vascular exam: PRESENT: normal capillary refill GI/Abdominal exam: PRESENT: normal bowel sounds, soft. ABSENT: distended, guarding, mass, organolmegaly, rebound, tenderness Rectal exam: PRESENT: deferred Extremities exam: PRESENT: full ROM. ABSENT: calf tenderness, clubbing, pedal edema Musculoskeletal exam: PRESENT: ambulatory Neurological exam: PRESENT: alert, awake, oriented to person, oriented to place, oriented to time, oriented to situation, CN II-XII grossly intact. ABSENT: motor sensory deficit Psychiatric exam: PRESENT: appropriate affect, normal mood. ABSENT: homicidal ideation, suicidal ideation Skin exam: PRESENT: dry, intact, warm. ABSENT: cyanosis, rash Results Laboratory Results: WBC 5.8 10^3/uL (4.0-10.5) 10/12/19 05:55 RBC 3.78 10^6/uL (3.72-5.28) 10/12/19 05:55 Hgb 11.6 g/dL (12.0-15.5) L 10/12/19 05:55 Hct 33.4 % (36.0-47.0) L 10/12/19 05:55 MCV 89 fl (80-97) 10/12/19 05:55 MCH 30.8 pg (27.0-33.4) 10/12/19 05:55 MCHC 34.8 g/dL (32.0-36.0) 10/12/19 05:55 RDW 13.9 % (11.5-14.0) 10/12/19 05:55 Plt Count 184 10^3/uL (150-450) 10/12/19 05:55 Lymph % (Auto) 16.9 % (13-45) 10/12/19 05:55 Mcmullen % (Auto) 9.5 % (3-13) 10/12/19 05:55 Eos % (Auto) 3.3 % (0-6) 10/12/19 05:55 Baso % (Auto) 0.5 % (0-2) 10/12/19 05:55 Absolute Neuts (auto) 4.1 10^3/uL (1.7-8.2) 10/12/19 05:55 Absolute Lymphs (auto) 1.0 10^3/uL (0.5-4.7) 10/12/19 05:55 Absolute Monos (auto) 0.6 10^3/uL (0.1-1.4) 10/12/19 05:55 Absolute Eos (auto) 0.2 10^3/uL (0.0-0.6) 10/12/19 05:55 Absolute Basos (auto) 0.0 10^3/uL (0.0-0.2) 10/12/19 05:55 Seg Neutrophils % 69.8 % (42-78) 10/12/19 05:55 PT 15.5 SEC (11.4-15.4) H 10/11/19 19:12 INR 1.22 10/11/19 19:12 APTT 39.7 SEC (23.5-35.8) H 10/11/19 19:12 Sodium 136.7 mmol/L (137-145) L 10/12/19 05:55 Potassium 4.1 mmol/L (3.6-5.0) 10/12/19 05:55 Chloride 103 mmol/L (98-107) 10/12/19 05:55 Carbon Dioxide 27 mmol/L (22-30) 10/12/19 05:55 Anion Gap 7 (5-19) 10/12/19 05:55 BUN 34 mg/dL (7-20) H 10/12/19 05:55 Creatinine 1.36 mg/dL (0.52-1.25) H 10/12/19 05:55 Est GFR ( Amer) 46 (>60) L 10/12/19 05:55 Est GFR (MDRD) Non-Af 38 (>60) L 10/12/19 05:55 Glucose 111 mg/dL (75-110) H 10/12/19 05:55 POC Glucose 74 mg/dL (70-110) 10/11/19 12:44 Calcium 9.0 mg/dL (8.4-10.2) 10/12/19 05:55 Magnesium 2.2 mg/dL (1.6-2.3) 10/12/19 05:55 Total Bilirubin 0.4 mg/dL (0.2-1.3) 10/11/19 11:51 Direct Bilirubin 0.0 mg/dL (0.0-0.4) 10/11/19 11:51 Neonat Total Bilirubin Not Reportable 10/11/19 11:51 Neonat Direct Bilirubin Not Reportable 10/11/19 11:51 Neonat Indirect Bili Not Reportable 10/11/19 11:51 AST 27 U/L (14-36) 10/11/19 11:51 ALT 20 U/L (<35) 10/11/19 11:51 Alkaline Phosphatase 55 U/L (38-126) 10/11/19 11:51 Troponin I < 0.012 ng/mL 10/11/19 11:51 NT-Pro-B Natriuret Pep 521 pg/mL (<125) H 10/11/19 11:51 Total Protein 6.8 g/dL (6.3-8.2) 10/11/19 11:51 Albumin 4.0 g/dL (3.5-5.0) 10/11/19 11:51 TSH 1.07 uIU/mL (0.47-4.68) 10/11/19 19:12 Urine Color YELLOW 10/11/19 17:56 Urine Appearance CLEAR 10/11/19 17:56 Urine pH 7.0 (5.0-9.0) 10/11/19 17:56 Ur Specific [place] 1.012 10/11/19 17:56 Urine Protein NEGATIVE mg/dL (NEGATIVE) 10/11/19 17:56 Urine Glucose (UA) NEGATIVE mg/dL (NEGATIVE) 10/11/19 17:56 Urine Ketones NEGATIVE mg/dL (NEGATIVE) 10/11/19 17:56 Urine Blood NEGATIVE (NEGATIVE) 10/11/19 17:56 Urine Nitrite (Reflex) NEGATIVE (NEGATIVE) 10/11/19 17:56 Urine Bilirubin NEGATIVE (NEGATIVE) 10/11/19 17:56 Urine Urobilinogen NEGATIVE mg/dL (<2.0) 10/11/19 17:56 Leukocyte Esterase Rfl MODERATE (NEGATIVE) H 10/11/19 17:56 Urine RBC (Auto) 2 /HPF 10/11/19 17:56 Urine WBC (Reflex) 4 /HPF 10/11/19 17:56 Squamous Epi Cells Auto 2 /HPF 10/11/19 17:56 U Non-Squamous Epis Auto 1 /HPF 10/11/19 17:56 Urine Mucus (Auto) RARE /LPF 10/11/19 17:56 Urine Ascorbic Acid NEGATIVE (NEGATIVE) 10/11/19 17:56 10/11/19 11:51 Troponin I < 0.012 NT-Pro-B Natriuret Pep 521 H Impressions: Chest X-Ray 10/11/19 11:51 IMPRESSION: No evidence of acute cardiopulmonary process. Plan Plan of Treatment: Patient is discharged home in stable condition. She is advised to follow-up with her primary care provider within [address] Stapleton's office; follow up at the earliest available appointment. Take medications as prescribed. Eat a heart healthy diet. Do NOT smoke. Return to emergency department as needed for concerning symptoms. Time Spent: Greater than 30 Minutes Stroke Is this a Stroke Patient?: No Acute Heart Failure - Is this a Heart Failure Patient?: No
--- NOTE | 2019-10-13 07:26 | EKG REPORT ---
SEVERITY:- BORDERLINE ECG - SINUS RHYTHM BORDERLINE T ABNORMALITIES, INFERIOR LEADS : Confirmed by: Lucia Banuelos 13-Oct-2019 07:25:11
== END 2019-10-12 11:30 | disposition home or self-care (01) ==
LOC: ER 11:35 → INTOOBSV 17:37 → EH 17:37 → 4S 18:48
PROVIDERS: ADMIT Hospitalist; ATTEND Registered Nurse
DX: I48.0 Paroxysmal atrial fibrillation (principal); E87.6 Hypokalemia; I10 Essential (primary) hypertension; E78.5 Hyperlipidemia, unspecified; R53.1 Weakness; R41.3 Other amnesia; T50.916A Underdosing of multiple unspecified drugs, medicaments and biological substances, initial encounter; Z91.138 Patient's unintentional underdosing of medication regimen for other reason; Z66 Do not resuscitate; Z79.899 Other long term (current) drug therapy; Z63.6 Dependent relative needing care at home; Z79.01 Long term (current) use of anticoagulants; Z85.3 Personal history of malignant neoplasm of breast; Z90.11 Acquired absence of right breast and nipple; Z82.49 Family history of ischemic heart disease and other diseases of the circulatory system
CPT/HCPCS: 93005 ×2; 96376; 99285; 96375; 96365; 96366; 36415 ×2; 87086; 82962; 83735 ×2; 84443; 85025 ×2; 85610; 85730; 80048; 80053; 81001; 84484; 83880; 71045; 93010 ×2; A9270 ×15; J3490 ×2; J3475; G0378

== ENCOUNTER → 2019-11-24 | Outpatient (CLI) | payer MEDICARE, OTHER ==
[2019-11-24 10:31] LABS: HEMATOCRIT 34.3 % (36.0-47.0); HEMOGLOBIN 11.6 g/dL (12.0-15.5); MEAN CORPUSCULAR HEMOGLOBIN 30.8 pg (27.0-33.4); MEAN CORPUSCULAR HGB CONC 33.9 g/dL (32.0-36.0); MEAN CORPUSCULAR VOLUME 91 fl (80-97); PLATELET COUNT 201 10^3/uL (150-450); RED BLOOD COUNT 3.78 10^6/uL (3.72-5.28); RED CELL DISTRIBUTION WIDTH 14.7 % (11.5-14.0); WHITE BLOOD COUNT 5.4 10^3/uL (4.0-10.5)
[2019-11-24 10:37] LABS: APPEARANCE,URINE CLEAR; BILIRUBIN,URINE NEGATIVE (NEGATIVE); COLOR,URINE YELLOW; GLUCOSE, URINE NEGATIVE (NEGATIVE); KETONES,URINE NEGATIVE (NEGATIVE); LEUKOCYTE ESTERASE,URINE SMALL (NEGATIVE); NITRITE,URINE NEGATIVE (NEGATIVE); PROTEIN,URINE NEGATIVE (NEGATIVE); URINE SPECIFIC GRAVITY 1.016; UROBILINOGEN,URINE NEGATIVE mg/dL (<2.0)
[2019-11-24 10:58] LABS: ALBUMIN 4.1 g/dL (3.5-5.0); ALKALINE PHOSPHATASE 67 U/L (38-126); ANION GAP 6 (5-19); ASPARTATE AMINO TRANSFERASE 28 U/L (14-36); BILIRUBIN,TOTAL 0.5 mg/dL (0.2-1.3); BLOOD UREA NITROGEN 33 mg/dL (7-20); CALCIUM 8.6 mg/dL (8.4-10.2); CARBON DIOXIDE 30 mmol/L (22-30); CHLORIDE 101 mmol/L (98-107); GLUCOSE 95 mg/dL (75-110); POTASSIUM 4.7 mmol/L (3.6-5.0); TOTAL PROTEIN 6.9 g/dL (6.3-8.2)
[2019-11-24 14:21] LABS: CHOLESTEROL 139.25 mg/dL (0-200); TRIGLYCERIDES 62 mg/dL (<150)
[2019-11-24 14:32] LABS: DIRECT LDL 54 mg/dL (<100)
== END ==
LOC: OD 09:31
PROVIDERS: ATTEND Internal Medicine Cardiovascular Disease
DX: E78.00 Pure hypercholesterolemia, unspecified (principal); I48.0 Paroxysmal atrial fibrillation; Z79.01 Long term (current) use of anticoagulants; Z79.899 Other long term (current) drug therapy
CPT/HCPCS: 36415; 80048; 80061; 80076; 81001; 82272; 83735; 85027; 85730

== ENCOUNTER → 2020-05-03 | Outpatient (CLI) | payer MEDICARE, OTHER ==
[2020-05-03 10:44] LABS: HEMATOCRIT 32.3 % (36.0-47.0); HEMOGLOBIN 11.1 g/dL (12.0-15.5); MEAN CORPUSCULAR HEMOGLOBIN 31.5 pg (27.0-33.4); MEAN CORPUSCULAR HGB CONC 34.4 g/dL (32.0-36.0); MEAN CORPUSCULAR VOLUME 92 fl (80-97); PLATELET COUNT 194 10^3/uL (150-450); RED BLOOD COUNT 3.53 10^6/uL (3.72-5.28); WHITE BLOOD COUNT 4.6 10^3/uL (4.0-10.5)
[2020-05-03 11:01] LABS: ALBUMIN 4.1 g/dL (3.5-5.0); ALKALINE PHOSPHATASE 62 U/L (38-126); ANION GAP 10 (5-19); ASPARTATE AMINO TRANSFERASE 31 U/L (14-36); BILIRUBIN,DIRECT 0.1 mg/dL (0.0-0.4); BILIRUBIN,TOTAL 0.6 mg/dL (0.2-1.3); BLOOD UREA NITROGEN 27 mg/dL (7-20); CALCIUM 9.5 mg/dL (8.4-10.2); CARBON DIOXIDE 31 mmol/L (22-30); CHLORIDE 97 mmol/L (98-107); GLUCOSE 100 mg/dL (75-110); POTASSIUM 4.2 mmol/L (3.6-5.0); TOTAL PROTEIN 6.5 g/dL (6.3-8.2)
[2020-05-03 12:48] LABS: APPEARANCE,URINE CLEAR; BILIRUBIN,URINE NEGATIVE (NEGATIVE); COLOR,URINE YELLOW; GLUCOSE, URINE NEGATIVE (NEGATIVE); KETONES,URINE NEGATIVE (NEGATIVE); LEUKOCYTE ESTERASE,URINE SMALL (NEGATIVE); NITRITE,URINE NEGATIVE (NEGATIVE); PROTEIN,URINE NEGATIVE (NEGATIVE); URINE SPECIFIC GRAVITY 1.017; UROBILINOGEN,URINE NEGATIVE mg/dL (<2.0)
--- OUTSIDE RECORDS SUMMARY | 2020-05-04 18:21 | XMS REPORT ---
:1945 Author Organization Pending sale to [facility] Address [facility] [address] [place] [address] Care Team Providers Name Role Phone Wilfredo Garrett M.D. Attending Clinician Unavailable Allergies, Adverse Reactions, Alerts Allergy Allergy Status Severity Reaction(s) Onset Inactive Treating C gio Name Type Date Date Clinician Valium Allergy to Active 2015-12 (Ingredien Drug - t(s): (Finding) 00:00:0 diazepam) 0 Medications Ordered Filled Start Stop Current Ordering Indication Dosage Frequency Signature Comments Components Medication Medication Date Date Medication? Clinician (SIG) Name Name Prolia 2019-06 No 60mg Prolia 1-11 00:00: 00 Prolia 20200 No 60mg Prolia 5-27 00:00: 00 Prolia 2019 No 60mg Prolia 1-06 00:00: 00 Prolia 20190 No 60mg Prolia 5-22 00:00: 00 Prolia 20181 No 60mg Prolia 2-05 00:00: 00 Feraheme 2017-06 No 510mg Feraheme 0-31 00:00: 00 Sodium 2018-1 No 40mL Sodium Chloride 0-31 Chloride 00:00: 00 Sodium 2018- No 50mL Sodium Chloride 0-24 Chloride 00:00: 00 Feraheme 2018- 2018- No 510mg Feraheme 0-24 10- 00:00: 00:00 00 :00 Prolia 20180 No 60mg Prolia 6-15 00:00: 00 Prolia 2017 No 60mg Prolia 2-29 00:00: 00 Prolia 20170 No 60mg Prolia 7-06 00:00: 00 Prolia 20170 2020- No 60mg Prolia 1-19 05-03 00:00: 00:00 00 :00 Cyanocobala 2016- 2017- No 1000 Cyanocobal min -07-11 ríos 00:00: 00:00 00 :00 Iron 2012-0 No 800mg Iron Dextran 5-09 Dextran 00:00: 00 Sodium 2012-0 No 50mL Sodium Chloride 5-09 Chloride 00:00: 00 Iron 2011-0 No 800mg Iron Dextran 5-02 Dextran 00:00: 00 Sodium 2011-0 No 50mL Sodium Chloride 5-02 Chloride 00:00: 00 Iron 2011-0 No 800mg Iron Dextran 4-25 Dextran 00:00: 00 Sodium 2011-0 No 50mL Sodium Chloride 4-25 Chloride 00:00: 00 Sodium 2011-0 2017- No 100mL Sodium Chloride 4-19 10-31 Chloride 00:00: 00:00 00 :00 Iron 2011-0 2012- No 25mg Iron Dextran 4-19 05-09 Dextran 00:00: 00:00 00 :00 Infed 2011-0 2011- No 775mg Infed -19 - 00:00: 00:00 00 :00 Biotin Yes 1 Calcium 600 Yes 2 Co Q10 Yes 1 [facility] Vitamin Yes 1 B12 Dronedarone Yes 1 HCl Eliquis Yes 1 Finacea Yes 1 Hydrochloro Yes 1 thiazide Hydrocodone Yes 1 -Acetaminop hen K-Tab Yes 1 Lasix Yes 1 Lipitor Yes 1 Loratadine Yes 1 Magnesium Yes 1 Oxide Micardis Yes 1 Multivitami Yes 1 ns Toprol XL Yes 1 Vitamin C Yes 1 Vitamin D Yes 1 Metoprolol 2017- No 1 Tartrate 12-05 11:56 :46 Aleve 2017- No 1 12-26 15:46 :05 Metrogel 2017- No 07-11 13:48 :11 Probiotic 2017- No 1 Gold Extra 07-11 Strength 13:48 :21 Esomeprazol 2015- No 1 e Magnesium 01-08 13:34 :27 Minocycline 2016- No 1 HCl 01-08 13:34 :34 NexIUM 2016- No 1 01-08 13:34 :41 Problems Condition Condition Condition Status Onset Resolution Last Treatin g Comments Name Details Category Date Date Treatment Clinician Date Senile Senile Diagnosis active osteoporosi osteoporosi 5-27 s s 00:00: 00 Chronic 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>12< B>12< deficiency deficiency Iron Iron Diagnosis active deficiency deficiency anemia anemia Primary Primary Diagnosis active osteoporosi osteoporosi s s H/O: H/O: Diagnosis active anticoagula anticoagula nt therapy nt therapy Lump or Lump or Diagnosis active mass in mass in breast breast Malignant Malignant Diagnosis active neoplasm of neoplasm of upper-inner upper-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 Atrial Atrial Diagnosis active fibrillatio fibrillatio n n Procedures Procedure Date / Time Performed Performing Clinician Devic e Bone density 2018-01-05 00:00:00 Left Toe Surgery Left Wrist Repair Right Mastectomy colonoscopy Results Test Description Test Time Test Comments Text Results Atomic Results Result Comments WBC 2020-05-03 10:09:00 Test Item Value Reference Range Comments WBC (test code = WBC) 4.6000 4.0000-10.0000 Lymphocytes % (test code = Lymphocytes %) 17.4000 % 22.400 0-43.6000 MID% (test code = MID%) 4.5000 % 1.2000-11.2000 Neutrophils % (test code = Neutrophils %) 78.1000 % 48.900 0-69.9000 Lymphocytes (test code = Lymphocytes) 0.8000 1.2000-3.2 000 MID (test code = MID) 0.2000 0.1000-1.1000 Neutrophils (test code = Neutrophils) 3.6000 1.5000-6.7 000 RBC (test code = RBC) 3.5500 3.7000-4.9000 HGB (test code = HGB) 11.0000 g/dL 11.2000-18.0000 HCT (test code = HCT) 31.3000 % 34.0000-44.0000 MCV (test code = MCV) 88.2000 fL 80.0000-94.0000 MCH (test code = MCH) 31.0000 pg 27.0000-34.0000 MCHC (test code = MCHC) 35.1000 g/dL 31.5000-36.0000 RDW (test code = RDW) 14.8000 11.0000-18.0000 PLT (test code = PLT) 224.0000 140.0000-440.0000 MPV (test code = MPV) 8.3000 fL 6.8000-10.6000 [id number] 10:09:00 Test Item Value Reference Range Comments Creatinine (test code = Creatinine) 1.1000 mg/dL 0.5000-1.200 0 Cr Clearance (Est) (test code = Cr 49.1900 75.0000-115.0 000 Clearance (Est)) Glucose (test code = Glucose) 108.0000 mg/dL 70.0000-118.0000 BUN (test code = BUN) 24.0000 mg/dL 7.0000-22.0000 Sodium (test code = Sodium) 137.0000 mmol/L 128.0000-145.0000 Potassium (test code = Potassium) 3.4000 mmol/L 3.6000-5.1000 Chloride (test code = Chloride) 98.0000 mmol/L 96.0000-108.0000 CO2 (test code = CO2) 32.0000 mmol/L 18.0000-33.0000 Calcium (test code = Calcium) 9.1600 mg/dL 8.0000-10.3000 Alkaline Phosphatase (test code = Alkaline 56.0000 42.00 00-141.0000 Phosphatase) ALT (SGPT) (test code = ALT (SGPT)) 16.0000 10.0000-47.0 000 AST (SGOT) (test code = AST (SGOT)) 19.0000 11.0000-37.0 000 Bilirubin, Total (test code = Bilirubin, 0.6000 mg/dL 0.0000- 1.6000 Total) Albumin (test code = Albumin) 4.3000 g/dL 3.5000-5.5000 Protein, Total (test code = Protein, 6.0000 g/dL 6.4000-8.10 00 Total) eGFR -Mexican (test code = eGFR 59.0000 60.0000- 200.0000 -Mexican) eGFR Lmw-Kjnveua-Ixiqwhnx (test code = 49.0000 60.0000-2 00.0000 eGFR Jdd-Iwqqnhs-Nvxqocrk) Iron, [id number] 11:42:00 Test Item Value Reference Range Comments Iron, Total (test code = Iron, Total) 90.0000 27.0000-13 9.0000 TIBC (test code = TIBC) 272.0000 250.0000-450.0000 UIBC (test code = UIBC) 182.0000 118.0000-369.0000 % Iron Saturation (test code = % Iron 33.0000 % 15.0000-55 .0000 Saturation) Ferritin (test code = Ferritin) 140.0000 ng/mL 15.0000-150.0000 [id number] 10:21:00 Test Item Value Reference Range Comments WBC (test code = WBC) 5.3000 4.0000-10.0000 Lymphocytes % (test code = Lymphocytes %) 16.7000 % 22.400 0-43.6000 MID% (test code = MID%) 4.8000 % 1.2000-11.2000 Neutrophils % (test code = Neutrophils %) 78.5000 % 48.900 0-69.9000 Lymphocytes (test code = Lymphocytes) 0.8000 1.2000-3.2 000 MID (test code = MID) 0.4000 0.1000-1.1000 Neutrophils (test code = Neutrophils) 4.1000 1.5000-6.7 000 RBC (test code = RBC) 4.0100 3.7000-4.9000 HGB (test code = HGB) 11.9000 g/dL 11.2000-18.0000 HCT (test code = HCT) 36.5000 % 34.0000-44.0000 MCV (test code = MCV) 90.9000 fL 80.0000-94.0000 MCH (test code = MCH) 29.8000 pg 27.0000-34.0000 MCHC (test code = MCHC) 32.7000 g/dL 31.5000-36.0000 RDW (test code = RDW) 15.3000 11.0000-18.0000 PLT (test code = PLT) 221.0000 140.0000-440.0000 MPV (test code = MPV) 9.0000 fL 6.8000-10.6000 [id number] 10:21:00 Test Item Value Reference Range Comments Creatinine (test code = Creatinine) 1.2000 mg/dL 0.5000-1.200 0 Cr Clearance (Est) (test code = Cr 47.3000 75.0000-115.0 000 Clearance (Est)) Glucose (test code = Glucose) 109.0000 mg/dL 70.0000-118.0000 BUN (test code = BUN) 32.0000 mg/dL 7.0000-22.0000 Sodium (test code = Sodium) 136.0000 mmol/L 128.0000-145.0000 Potassium (test code = Potassium) 3.4000 mmol/L 3.6000-5.1000 Chloride (test code = Chloride) 100.0000 mmol/L 96.0000-108.0000 CO2 (test code = CO2) 31.0000 mmol/L 18.0000-33.0000 Calcium (test code = Calcium) 8.1800 mg/dL 8.0000-10.3000 Alkaline Phosphatase (test code = Alkaline 58.0000 42.00 00-141.0000 Phosphatase) ALT (SGPT) (test code = ALT (SGPT)) 20.0000 10.0000-47.0 000 AST (SGOT) (test code = AST (SGOT)) 20.0000 11.0000-37.0 000 Bilirubin, Total (test code = Bilirubin, 0.5000 mg/dL 0.0000- 1.6000 Total) Albumin (test code = Albumin) 4.2000 g/dL 3.5000-5.5000 Protein, Total (test code = Protein, 6.3000 g/dL 6.4000-8.10 00 Total) eGFR -Mexican (test code = eGFR 53.0000 60.0000- 200.0000 -Mexican) eGFR Atk-Vffelsl-Chmglxeh (test code = 44.0000 60.0000-2 00.0000 eGFR Bid-Yjvazle-Jagtwoja) Iron, [id number] 11:59:00 Test Item Value Reference Range Comments Iron, Total (test code = Iron, Total) 81.0000 27.0000-13 9.0000 TIBC (test code = TIBC) 247.0000 250.0000-450.0000 UIBC (test code = UIBC) 166.0000 118.0000-369.0000 % Iron Saturation (test code = % Iron 33.0000 % 15.0000-55 .0000 Saturation) Ferritin (test code = Ferritin) 187.0000 ng/mL 15.0000-150.0000 [id number] 10:43:00 Test Item Value Reference Range Comments WBC (test code = WBC) 6.4000 4.0000-10.0000 Lymphocytes % (test code = Lymphocytes %) 15.1000 % 22.400 0-43.6000 MID% (test code = MID%) 4.4000 % 1.2000-11.2000 Neutrophils % (test code = Neutrophils %) 80.5000 % 48.900 0-69.9000 Lymphocytes (test code = Lymphocytes) 0.9000 1.2000-3.2 000 MID (test code = MID) 0.3000 0.1000-1.1000 Neutrophils (test code = Neutrophils) 5.2000 1.5000-6.7 000 RBC (test code = RBC) 4.2100 3.7000-4.9000 HGB (test code = HGB) 12.1000 g/dL 11.2000-18.0000 HCT (test code = HCT) 38.0000 % 34.0000-44.0000 MCV (test code = MCV) 90.3000 fL 80.0000-94.0000 MCH (test code = MCH) 28.7000 pg 27.0000-34.0000 MCHC (test code = MCHC) 31.8000 g/dL 31.5000-36.0000 RDW (test code = RDW) 14.5000 11.0000-18.0000 PLT (test code = PLT) 242.0000 140.0000-440.0000 MPV (test code = MPV) 8.0000 fL 6.8000-10.6000 [id number] 10:43:00 Test Item Value Reference Range Comments Creatinine (test code = Creatinine) 1.1000 mg/dL 0.5000-1.200 0 Cr Clearance (Est) (test code = Cr 50.1200 75.0000-115.0 000 Clearance (Est)) Glucose (test code = Glucose) 71.0000 mg/dL 70.0000-118.0000 BUN (test code = BUN) 24.0000 mg/dL 7.0000-22.0000 Sodium (test code = Sodium) 139.0000 mmol/L 128.0000-145.0000 Potassium (test code = Potassium) 3.6000 mmol/L 3.6000-5.1000 Chloride (test code = Chloride) 102.0000 mmol/L 96.0000-108.0000 CO2 (test code = CO2) 31.0000 mmol/L 18.0000-33.0000 Calcium (test code = Calcium) 9.6000 mg/dL 8.0000-10.3000 Alkaline Phosphatase (test code = Alkaline 60.0000 42.00 00-141.0000 Phosphatase) ALT (SGPT) (test code = ALT (SGPT)) 19.0000 10.0000-47.0 000 AST (SGOT) (test code = AST (SGOT)) 20.0000 11.0000-37.0 000 Bilirubin, Total (test code = Bilirubin, 0.5000 mg/dL 0.0000- 1.6000 Total) Albumin (test code = Albumin) 4.1000 g/dL 3.5000-5.5000 Protein, Total (test code = Protein, 6.2000 g/dL 6.4000-8.10 00 Total) eGFR -Mexican (test code = eGFR 59.0000 60.0000- 200.0000 -Mexican) eGFR Yzy-Ggrhohl-Aiixfajr (test code = 49.0000 60.0000-2 00.0000 eGFR Znr-Fkvcboy-Iylqavwg) [id number] 13:30:00 Test Item Value Reference Range Comments Creatinine (test code = Creatinine) 1.0000 mg/dL 0.5700-1.000 0 Cr Clearance (Est) (test code = Cr 55.8600 75.0000-115.0 000 Clearance (Est)) Glucose (test code = Glucose) 91.0000 mg/dL 65.0000-99.0000 BUN (test code = BUN) 26.0000 mg/dL 8.0000-27.0000 eGFR Xdd-Gdvommy-Ljdyrhxv (test code = 56.0000 eGFR Zta-Mfrevmy-Pdopqzpj) eGFR -Mexican (test code = eGFR 65.0000 -Mexican) BUN/Creat Ratio (test code = BUN/Creat 26.0000 12.0000-2 8.0000 Ratio) Sodium (test code = Sodium) 140.0000 mmol/L 134.0000-144.0000 Potassium (test code = Potassium) 4.5000 mmol/L 3.5000-5.2000 Chloride (test code = Chloride) 104.0000 mmol/L 96.0000-106.0000 CO2 (test code = CO2) 23.0000 mmol/L 20.0000-29.0000 Calcium (test code = Calcium) 8.8000 mg/dL 8.7000-10.3000 Protein, Total (test code = Protein, 6.4000 g/dL 6.0000-8.50 00 Total) Albumin (test code = Albumin) 4.1000 g/dL 3.5000-4.8000 Globulin (test code = Globulin) 2.3000 g/dL 1.5000-4.5000 A/G Ratio (test code = A/G Ratio) 1.8000 1.2000-2.2000 Bilirubin, Total (test code = Bilirubin, 0.4000 mg/dL 0.0000- 1.2000 Total) Alkaline Phosphatase (test code = Alkaline 57.0000 39.00 00-117.0000 Phosphatase) AST (SGOT) (test code = AST (SGOT)) 22.0000 0.0000-40.00 00 ALT (SGPT) (test code = ALT (SGPT)) 19.0000 0.0000-32.00 00 Iron, Total (test code = Iron, Total) 73.0000 27.0000-13 9.0000 TIBC (test code = TIBC) 231.0000 250.0000-450.0000 UIBC (test code = UIBC) 158.0000 118.0000-369.0000 % Iron Saturation (test code = % Iron 32.0000 % 15.0000-55 .0000 Saturation) Ferritin (test code = Ferritin) 246.0000 ng/mL 15.0000-150.0000 [id number] 10:12:00 Test Item Value Reference Range Comments WBC (test code = WBC) 4.9000 4.0000-10.0000 Lymphocytes % (test code = Lymphocytes %) 16.0000 % 22.400 0-43.6000 MID% (test code = MID%) 4.3000 % 1.2000-11.2000 Neutrophils % (test code = Neutrophils %) 79.7000 % 48.900 0-69.9000 Lymphocytes (test code = Lymphocytes) 0.8000 1.2000-3.2 000 MID (test code = MID) 0.2000 0.1000-1.1000 Neutrophils (test code = Neutrophils) 3.9000 1.5000-6.7 000 RBC (test code = RBC) 3.8700 3.7000-4.9000 HGB (test code = HGB) 11.5000 g/dL 11.2000-18.0000 HCT (test code = HCT) 35.5000 % 34.0000-44.0000 MCV (test code = MCV) 91.6000 fL 80.0000-94.0000 MCH (test code = MCH) 29.7000 pg 27.0000-34.0000 MCHC (test code = MCHC) 32.4000 g/dL 31.5000-36.0000 RDW (test code = RDW) 14.0000 11.0000-18.0000 PLT (test code = PLT) 212.0000 140.0000-440.0000 MPV (test code = MPV) 8.7000 fL 6.8000-10.6000 [id number] 10:12:00 Test Item Value Reference Range Comments Creatinine (test code = Creatinine) 1.0000 mg/dL 0.5000-1.200 0 Cr Clearance (Est) (test code = Cr 55.8600 75.0000-115.0 000 Clearance (Est)) Glucose (test code = Glucose) 96.0000 mg/dL 70.0000-118.0000 BUN (test code = BUN) 28.0000 mg/dL 7.0000-22.0000 Sodium (test code = Sodium) 139.0000 mmol/L 128.0000-145.0000 Potassium (test code = Potassium) 4.3000 mmol/L 3.6000-5.1000 Chloride (test code = Chloride) 103.0000 mmol/L 96.0000-108.0000 CO2 (test code = CO2) 29.0000 mmol/L 18.0000-33.0000 Calcium (test code = Calcium) 8.8500 mg/dL 8.0000-10.3000 Alkaline Phosphatase (test code = Alkaline 57.0000 42.00 00-141.0000 Phosphatase) ALT (SGPT) (test code = ALT (SGPT)) 16.0000 10.0000-47.0 000 AST (SGOT) (test code = AST (SGOT)) 19.0000 11.0000-37.0 000 Bilirubin, Total (test code = Bilirubin, 0.5000 mg/dL 0.0000- 1.6000 Total) Albumin (test code = Albumin) 4.1000 g/dL 3.5000-5.5000 Protein, Total (test code = Protein, 6.4000 g/dL 6.4000-8.10 00 Total) eGFR -Mexican (test code = eGFR 66.0000 60.0000- 200.0000 -Mexican) eGFR Mvg-Ynmrbpw-Xzdvwznc (test code = 55.0000 60.0000-2 00.0000 eGFR Qfn-Urvzbqf-Xarczedt) [id number] 09:42:00 Test Item Value Reference Range Comments WBC (test code = WBC) 5.2000 4.0000-10.0000 Lymphocytes % (test code = Lymphocytes %) 15.0000 % 22.400 0-43.6000 MID% (test code = MID%) 8.5000 % 1.2000-11.2000 Neutrophils % (test code = Neutrophils %) 76.5000 % 48.900 0-69.9000 Lymphocytes (test code = Lymphocytes) 0.7000 1.2000-3.2 000 MID (test code = MID) 0.6000 0.1000-1.1000 Neutrophils (test code = Neutrophils) 3.9000 1.5000-6.7 000 RBC (test code = RBC) 3.8600 3.7000-4.9000 HGB (test code = HGB) 11.3000 g/dL 11.2000-18.0000 HCT (test code = HCT) 34.2000 % 34.0000-44.0000 MCV (test code = MCV) 88.6000 fL 80.0000-94.0000 MCH (test code = MCH) 29.3000 pg 27.0000-34.0000 MCHC (test code = MCHC) 33.0000 g/dL 31.5000-36.0000 RDW (test code = RDW) 15.3000 11.0000-18.0000 PLT (test code = PLT) 233.0000 140.0000-440.0000 MPV (test code = MPV) 7.8000 fL 6.8000-10.6000 [id number] 00:00:00 Test Item Value Reference Range Comments Creatinine (test code = Creatinine) 1.1100 mg/dL 0.5700-1.000 0 Cr Clearance (Est) (test code = Cr 50.3900 75.0000-115.0 000 Clearance (Est)) Glucose (test code = Glucose) 90.0000 mg/dL 65.0000-99.0000 BUN (test code = BUN) 23.0000 mg/dL 8.0000-27.0000 eGFR Ysq-Vctuuhv-Hgiihcwh (test code = 50.0000 eGFR Iqu-Aunquda-Jnwionle) eGFR -Mexican (test code = eGFR 57.0000 -Mexican) BUN/Creat Ratio (test code = BUN/Creat 21.0000 12.0000-2 8.0000 Ratio) Sodium (test code = Sodium) 138.0000 mmol/L 134.0000-144.0000 Potassium (test code = Potassium) 4.3000 mmol/L 3.5000-5.2000 Chloride (test code = Chloride) 100.0000 mmol/L 96.0000-106.0000 CO2 (test code = CO2) 24.0000 mmol/L 20.0000-29.0000 Calcium (test code = Calcium) 8.9000 mg/dL 8.7000-10.3000 Protein, Total (test code = Protein, 6.6000 g/dL 6.0000-8.50 00 Total) Albumin (test code = Albumin) 4.1000 g/dL 3.5000-4.8000 Globulin (test code = Globulin) 2.5000 g/dL 1.5000-4.5000 A/G Ratio (test code = A/G Ratio) 1.6000 1.2000-2.2000 Bilirubin, Total (test code = Bilirubin, 0.4000 mg/dL 0.0000- 1.2000 Total) Alkaline Phosphatase (test code = Alkaline 64.0000 39.00 00-117.0000 Phosphatase) AST (SGOT) (test code = AST (SGOT)) 22.0000 0.0000-40.00 00 ALT (SGPT) (test code = ALT (SGPT)) 17.0000 0.0000-32.00 00 Iron, Total (test code = Iron, Total) 75.0000 27.0000-13 9.0000 TIBC (test code = TIBC) 233.0000 250.0000-450.0000 UIBC (test code = UIBC) 158.0000 118.0000-369.0000 % Iron Saturation (test code = % Iron 32.0000 % 15.0000-55 .0000 Saturation) Ferritin (test code = Ferritin) 383.0000 ng/mL 15.0000-150.0000 [id number] 11:02:00 Test Item Value Reference Range Comments Creatinine (test code = Creatinine) 1.2300 mg/dL 0.5700-1.000 0 Cr Clearance (Est) (test code = Cr 46.0800 75.0000-115.0 000 Clearance (Est)) Glucose (test code = Glucose) 92.0000 mg/dL 65.0000-99.0000 BUN (test code = BUN) 25.0000 mg/dL 8.0000-27.0000 eGFR Efc-Kywprqw-Tegslued (test code = 44.0000 eGFR Mnf-Uaxfwzq-Xaztefrh) eGFR -Mexican (test code = eGFR 51.0000 -Mexican) BUN/Creat Ratio (test code = BUN/Creat 20.0000 12.0000-2 8.0000 Ratio) Sodium (test code = Sodium) 139.0000 mmol/L 134.0000-144.0000 Potassium (test code = Potassium) 4.2000 mmol/L 3.5000-5.2000 Chloride (test code = Chloride) 99.0000 mmol/L 96.0000-106.0000 CO2 (test code = CO2) 28.0000 mmol/L 20.0000-29.0000 Calcium (test code = Calcium) 8.9000 mg/dL 8.7000-10.3000 Protein, Total (test code = Protein, 6.5000 g/dL 6.0000-8.50 00 Total) Albumin (test code = Albumin) 4.2000 g/dL 3.5000-4.8000 Globulin (test code = Globulin) 2.3000 g/dL 1.5000-4.5000 A/G Ratio (test code = A/G Ratio) 1.8000 1.2000-2.2000 Bilirubin, Total (test code = Bilirubin, 0.5000 mg/dL 0.0000- 1.2000 Total) Alkaline Phosphatase (test code = Alkaline 70.0000 39.00 00-117.0000 Phosphatase) AST (SGOT) (test code = AST (SGOT)) 27.0000 0.0000-40.00 00 ALT (SGPT) (test code = ALT (SGPT)) 19.0000 0.0000-32.00 00 Iron, Total (test code = Iron, Total) 70.0000 27.0000-13 9.0000 TIBC (test code = TIBC) 220.0000 250.0000-450.0000 UIBC (test code = UIBC) 150.0000 118.0000-369.0000 % Iron Saturation (test code = % Iron 32.0000 % 15.0000-55 .0000 Saturation) Ferritin (test code = Ferritin) 525.0000 ng/mL 15.0000-150.0000 [id number] 09:42:00 Test Item Value Reference Range Comments Creatinine (test code = Creatinine) 1.2000 mg/dL 0.5000-1.200 0 Cr Clearance (Est) (test code = Cr 47.2300 75.0000-115.0 000 Clearance (Est)) Glucose (test code = Glucose) 104.0000 mg/dL 70.0000-118.0000 BUN (test code = BUN) 26.0000 mg/dL 7.0000-22.0000 Sodium (test code = Sodium) 134.0000 mmol/L 128.0000-145.0000 Potassium (test code = Potassium) 3.8000 mmol/L 3.6000-5.1000 Chloride (test code = Chloride) 102.0000 mmol/L 96.0000-108.0000 CO2 (test code = CO2) 29.0000 mmol/L 18.0000-33.0000 Calcium (test code = Calcium) 8.7000 mg/dL 8.0000-10.3000 Alkaline Phosphatase (test code = Alkaline 63.0000 42.00 00-141.0000 Phosphatase) ALT (SGPT) (test code = ALT (SGPT)) 16.0000 10.0000-47.0 000 AST (SGOT) (test code = AST (SGOT)) 21.0000 11.0000-37.0 000 Bilirubin, Total (test code = Bilirubin, 0.7000 mg/dL 0.0000- 1.6000 Total) Albumin (test code = Albumin) 4.0000 g/dL 3.5000-5.5000 Protein, Total (test code = Protein, 6.6000 g/dL 6.4000-8.10 00 Total) eGFR -Mexican (test code = eGFR 54.0000 60.0000- 200.0000 -Mexican) eGFR Tgb-Gwdpjhw-Gqvuwfnq (test code = 44.0000 60.0000-2 00.0000 eGFR Ggh-Inbccpb-Mqabilvi) [id number] 09:41:00 Test Item Value Reference Range Comments WBC (test code = WBC) 5.0000 4.0000-10.0000 Lymphocytes % (test code = Lymphocytes %) 16.2000 % 22.400 0-43.6000 MID% (test code = MID%) 5.3000 % 1.2000-11.2000 Neutrophils % (test code = Neutrophils %) 78.5000 % 48.900 0-69.9000 Lymphocytes (test code = Lymphocytes) 0.8000 1.2000-3.2 000 MID (test code = MID) 0.2000 0.1000-1.1000 Neutrophils (test code = Neutrophils) 4.0000 1.5000-6.7 000 RBC (test code = RBC) 3.5700 3.7000-4.9000 HGB (test code = HGB) 11.2000 g/dL 11.2000-18.0000 HCT (test code = HCT) 32.3000 % 34.0000-44.0000 MCV (test code = MCV) 90.4000 fL 80.0000-94.0000 MCH (test code = MCH) 31.4000 pg 27.0000-34.0000 MCHC (test code = MCHC) 34.7000 g/dL 31.5000-36.0000 RDW (test code = RDW) 15.3000 11.0000-18.0000 PLT (test code = PLT) 224.0000 140.0000-440.0000 MPV (test code = MPV) 8.4000 fL 6.8000-10.6000 [id number] 11:05:00 Test Item Value Reference Range Comments Creatinine (test code = Creatinine) 1.0300 mg/dL 0.5700-1.000 0 Cr Clearance (Est) (test code = Cr 55.9600 75.0000-115.0 000 Clearance (Est)) Glucose (test code = Glucose) 92.0000 mg/dL 65.0000-99.0000 BUN (test code = BUN) 23.0000 mg/dL 8.0000-27.0000 eGFR Zjj-Bjnsctk-Kxvfbvjp (test code = 55.0000 eGFR Xfj-Rkdjemd-Jhoqrjwf) eGFR -Mexican (test code = eGFR 63.0000 -Mexican) BUN/Creat Ratio (test code = BUN/Creat 22.0000 12.0000-2 8.0000 Ratio) Sodium (test code = Sodium) 141.0000 mmol/L 134.0000-144.0000 Potassium (test code = Potassium) 4.3000 mmol/L 3.5000-5.2000 Chloride (test code = Chloride) 102.0000 mmol/L 96.0000-106.0000 CO2 (test code = CO2) 25.0000 mmol/L 20.0000-29.0000 Calcium (test code = Calcium) 8.7000 mg/dL 8.7000-10.3000 Protein, Total (test code = Protein, 6.5000 g/dL 6.0000-8.50 00 Total) Albumin (test code = Albumin) 4.1000 g/dL 3.5000-4.8000 Globulin (test code = Globulin) 2.4000 g/dL 1.5000-4.5000 A/G Ratio (test code = A/G Ratio) 1.7000 1.2000-2.2000 Bilirubin, Total (test code = Bilirubin, 0.4000 mg/dL 0.0000- 1.2000 Total) Alkaline Phosphatase (test code = Alkaline 64.0000 39.00 00-117.0000 Phosphatase) AST (SGOT) (test code = AST (SGOT)) 24.0000 0.0000-40.00 00 ALT (SGPT) (test code = ALT (SGPT)) 14.0000 0.0000-32.00 00 Iron, Total (test code = Iron, Total) 48.0000 27.0000-13 9.0000 TIBC (test code = TIBC) 289.0000 250.0000-450.0000 UIBC (test code = UIBC) 241.0000 118.0000-369.0000 % Iron Saturation (test code = % Iron 17.0000 % 15.0000-55 .0000 Saturation) Ferritin (test code = Ferritin) 83.0000 ng/mL 15.0000-150.0000 [id number] 09:35:00 Test Item Value Reference Range Comments WBC (test code = WBC) 5.0000 4.0000-10.0000 Lymphocytes % (test code = Lymphocytes %) 19.5000 % 22.400 0-43.6000 MID% (test code = MID%) 5.6000 % 1.2000-11.2000 Neutrophils % (test code = Neutrophils %) 74.9000 % 48.900 0-69.9000 Lymphocytes (test code = Lymphocytes) 0.9000 1.2000-3.2 000 MID (test code = MID) 0.4000 0.1000-1.1000 Neutrophils (test code = Neutrophils) 3.7000 1.5000-6.7 000 RBC (test code = RBC) 3.2600 3.7000-4.9000 HGB (test code = HGB) 10.4000 g/dL 11.2000-18.0000 HCT (test code = HCT) 29.0000 % 34.0000-44.0000 MCV (test code = MCV) 88.9000 fL 80.0000-94.0000 MCH (test code = MCH) 32.0000 pg 27.0000-34.0000 MCHC (test code = MCHC) 35.9000 g/dL 31.5000-36.0000 RDW (test code = RDW) 14.8000 11.0000-18.0000 PLT (test code = PLT) 254.0000 140.0000-440.0000 MPV (test code = MPV) 7.4000 fL 6.8000-10.6000 Iron, [id number] 13:44:00 Test Item Value Reference Range Comments Iron, Total (test code = Iron, Total) 65.0000 27.0000-13 9.0000 TIBC (test code = TIBC) 253.0000 250.0000-450.0000 UIBC (test code = UIBC) 188.0000 118.0000-369.0000 % Iron Saturation (test code = % Iron 26.0000 % 15.0000-55 .0000 Saturation) Vitamin B12 (test code = Vitamin B12) 2000.0000 pg/mL 232.0000-1 245.0000 Folate (test code = Folate) 20.0000 ng/mL Vitamin D (25-Hydroxy) (test code = 50.9000 ng/mL 30.0000-100. 0000 Vitamin D (25-Hydroxy)) Ferritin (test code = Ferritin) 128.0000 ng/mL 15.0000-150.0000 [id number] 11:22:00 Test Item Value Reference Range Comments WBC (test code = WBC) 5.6000 4.0000-10.0000 Lymphocytes % (test code = Lymphocytes %) 19.7000 % 22.400 0-43.6000 MID% (test code = MID%) 6.8000 % 1.2000-11.2000 Neutrophils % (test code = Neutrophils %) 73.5000 % 48.900 0-69.9000 Lymphocytes (test code = Lymphocytes) 1.1000 1.2000-3.2 000 MID (test code = MID) 0.4000 0.1000-1.1000 Neutrophils (test code = Neutrophils) 4.1000 1.5000-6.7 000 RBC (test code = RBC) 3.8100 3.7000-4.9000 HGB (test code = HGB) 11.5000 g/dL 11.2000-18.0000 HCT (test code = HCT) 34.0000 % 34.0000-44.0000 MCV (test code = MCV) 89.3000 fL 80.0000-94.0000 MCH (test code = MCH) 30.2000 pg 27.0000-34.0000 MCHC (test code = MCHC) 33.8000 g/dL 31.5000-36.0000 RDW (test code = RDW) 14.2000 11.0000-18.0000 PLT (test code = PLT) 204.0000 140.0000-440.0000 MPV (test code = MPV) 7.4000 fL 6.8000-10.6000 [id number] 11:22:00 Test Item Value Reference Range Comments Creatinine (test code = Creatinine) 1.1000 mg/dL 0.5000-1.200 0 Cr Clearance (Est) (test code = Cr 52.4000 75.0000-115.0 000 Clearance (Est)) Glucose (test code = Glucose) 117.0000 mg/dL 70.0000-118.0000 BUN (test code = BUN) 26.0000 mg/dL 7.0000-22.0000 Sodium (test code = Sodium) 140.0000 mmol/L 128.0000-145.0000 Potassium (test code = Potassium) 3.9000 mmol/L 3.6000-5.1000 Chloride (test code = Chloride) 101.0000 mmol/L 96.0000-108.0000 CO2 (test code = CO2) 31.0000 mmol/L 18.0000-33.0000 Calcium (test code = Calcium) 8.0700 mg/dL 8.0000-10.3000 Alkaline Phosphatase (test code = Alkaline 65.0000 42.00 00-141.0000 Phosphatase) ALT (SGPT) (test code = ALT (SGPT)) 17.0000 10.0000-47.0 000 AST (SGOT) (test code = AST (SGOT)) 22.0000 11.0000-37.0 000 Bilirubin, Total (test code = Bilirubin, 0.5000 mg/dL 0.0000- 1.6000 Total) Albumin (test code = Albumin) 4.1000 g/dL 3.5000-5.5000 Protein, Total (test code = Protein, 6.4000 g/dL 6.4000-8.10 00 Total) eGFR -Mexican (test code = eGFR 59.0000 60.0000- 200.0000 -Mexican) eGFR Ooi-Ogyvfds-Bcetaxun (test code = 49.0000 60.0000-2 00.0000 eGFR Mys-Wuiusra-Gfxjbkpj) [id number] 11:13:00 Test Item Value Reference Range Comments WBC (test code = WBC) 5.3000 4.0000-10.0000 Lymphocytes % (test code = Lymphocytes %) 17.4000 % 22.400 0-43.6000 MID% (test code = MID%) 5.5000 % 1.2000-11.2000 Neutrophils % (test code = Neutrophils %) 77.1000 % 48.900 0-69.9000 Lymphocytes (test code = Lymphocytes) 0.9000 1.2000-3.2 000 MID (test code = MID) 0.3000 0.1000-1.1000 Neutrophils (test code = Neutrophils) 4.1000 1.5000-6.7 000 RBC (test code = RBC) 3.8900 3.7000-4.9000 HGB (test code = HGB) 11.4000 g/dL 11.2000-18.0000 HCT (test code = HCT) 34.4000 % 34.0000-44.0000 MCV (test code = MCV) 88.4000 fL 80.0000-94.0000 MCH (test code = MCH) 29.3000 pg 27.0000-34.0000 MCHC (test code = MCHC) 33.1000 g/dL 31.5000-36.0000 RDW (test code = RDW) 15.6000 11.0000-18.0000 PLT (test code = PLT) 198.0000 140.0000-440.0000 MPV (test code = MPV) 8.4000 fL 6.8000-10.6000 [id number] 11:13:00 Test Item Value Reference Range Comments Creatinine (test code = Creatinine) 0.8000 mg/dL 0.5000-1.200 0 Cr Clearance (Est) (test code = Cr 70.0200 75.0000-115.0 000 Clearance (Est)) Glucose (test code = Glucose) 100.0000 mg/dL 70.0000-118.0000 BUN (test code = BUN) 28.0000 mg/dL 7.0000-22.0000 Sodium (test code = Sodium) 136.0000 mmol/L 128.0000-145.0000 Potassium (test code = Potassium) 3.4000 mmol/L 3.6000-5.1000 Chloride (test code = Chloride) 103.0000 mmol/L 96.0000-108.0000 CO2 (test code = CO2) 30.0000 mmol/L 18.0000-33.0000 Calcium (test code = Calcium) 8.9700 mg/dL 8.0000-10.3000 Alkaline Phosphatase (test code = Alkaline 64.0000 42.00 00-141.0000 Phosphatase) ALT (SGPT) (test code = ALT (SGPT)) 18.0000 10.0000-47.0 000 AST (SGOT) (test code = AST (SGOT)) 20.0000 11.0000-37.0 000 Bilirubin, Total (test code = Bilirubin, 0.5000 mg/dL 0.0000- 1.6000 Total) Albumin (test code = Albumin) 4.2000 g/dL 3.5000-5.5000 Protein, Total (test code = Protein, 6.6000 g/dL 6.4000-8.10 00 Total) eGFR -Mexican (test code = eGFR 86.0000 60.0000- 200.0000 -Mexican) eGFR Yvw-Fkbureg-Ildzghid (test code = 71.0000 60.0000-2 00.0000 eGFR Ivh-Kbdpyha-Qdqamwye) Iron, [id number] 14:52:00 Test Item Value Reference Range Comments Iron, Total (test code = Iron, Total) 71.0000 27.0000-13 9.0000 TIBC (test code = TIBC) 227.0000 250.0000-450.0000 UIBC (test code = UIBC) 156.0000 118.0000-369.0000 % Iron Saturation (test code = % Iron 31.0000 % 15.0000-55 .0000 Saturation) Vitamin B12 (test code = Vitamin B12) 1617.0000 pg/mL 211.0000-9 46.0000 Folate (test code = Folate) 20.0000 ng/mL Ferritin (test code = Ferritin) 212.0000 ng/mL 15.0000-150.0000 [id number] 14:19:00 Test Item Value Reference Range Comments WBC (test code = WBC) 5.3000 4.0000-10.0000 Lymphocytes % (test code = Lymphocytes %) 18.7000 % 22.400 0-43.6000 MID% (test code = MID%) 6.0000 % 1.2000-11.2000 Neutrophils % (test code = Neutrophils %) 75.3000 % 48.900 0-69.9000 Lymphocytes (test code = Lymphocytes) 0.9000 1.2000-3.2 000 MID (test code = MID) 0.4000 0.1000-1.1000 Neutrophils (test code = Neutrophils) 4.0000 1.5000-6.7 000 RBC (test code = RBC) 3.9600 3.7000-4.9000 HGB (test code = HGB) 11.5000 g/dL 11.2000-18.0000 HCT (test code = HCT) 35.2000 % 34.0000-44.0000 MCV (test code = MCV) 89.0000 fL 80.0000-94.0000 MCH (test code = MCH) 29.0000 pg 27.0000-34.0000 MCHC (test code = MCHC) 32.6000 g/dL 31.5000-36.0000 RDW (test code = RDW) 14.6000 11.0000-18.0000 PLT (test code = PLT) 216.0000 140.0000-440.0000 MPV (test code = MPV) 7.9000 fL 6.8000-10.6000 Iron, [id number] 14:12:00 Test Item Value Reference Range Comments Iron, Total (test code = Iron, Total) 42.0000 27.0000-13 9.0000 TIBC (test code = TIBC) 215.0000 250.0000-450.0000 UIBC (test code = UIBC) 173.0000 118.0000-369.0000 % Iron Saturation (test code = % Iron 20.0000 % 15.0000-55 .0000 Saturation) Vitamin B12 (test code = Vitamin B12) 2000.0000 pg/mL 211.0000-9 46.0000 Folate (test code = Folate) 20.0000 ng/mL Ferritin (test code = Ferritin) 233.0000 ng/mL 15.0000-150.0000 [id number] 12:32:00 Test Item Value Reference Range Comments WBC (test code = WBC) 5.3000 4.0000-10.0000 Lymphocytes % (test code = Lymphocytes %) 15.9000 % 22.400 0-43.6000 MID% (test code = MID%) 4.3000 % 1.2000-11.2000 Neutrophils % (test code = Neutrophils %) 79.8000 % 48.900 0-69.9000 Lymphocytes (test code = Lymphocytes) 0.8000 1.2000-3.2 000 MID (test code = MID) 0.3000 0.1000-1.1000 Neutrophils (test code = Neutrophils) 4.2000 1.5000-6.7 000 RBC (test code = RBC) 3.8300 3.7000-4.9000 HGB (test code = HGB) 11.3000 g/dL 11.2000-14.4000 HCT (test code = HCT) 33.7000 % 34.0000-44.0000 MCV (test code = MCV) 87.9000 fL 80.0000-94.0000 MCH (test code = MCH) 29.5000 pg 27.0000-34.0000 MCHC (test code = MCHC) 33.6000 g/dL 31.5000-36.0000 RDW (test code = RDW) 15.1000 11.0000-18.0000 PLT (test code = PLT) 258.0000 140.0000-440.0000 MPV (test code = MPV) 8.3000 fL 6.8000-10.6000 [id number] 12:32:00 Test Item Value Reference Range Comments Creatinine (test code = Creatinine) 0.8000 mg/dL 0.5000-1.200 0 Cr Clearance (Est) (test code = Cr 70.7500 75.0000-115.0 000 Clearance (Est)) Glucose (test code = Glucose) 158.0000 mg/dL 70.0000-118.0000 BUN (test code = BUN) 27.0000 mg/dL 7.0000-22.0000 Sodium (test code = Sodium) 137.0000 mmol/L 128.0000-145.0000 Potassium (test code = Potassium) 3.3000 mmol/L 3.6000-5.1000 Chloride (test code = Chloride) 106.0000 mmol/L 96.0000-108.0000 CO2 (test code = CO2) 32.0000 mmol/L 18.0000-33.0000 Calcium (test code = Calcium) 9.5200 mg/dL 8.0000-10.3000 Alkaline Phosphatase (test code = Alkaline 77.0000 42.00 00-141.0000 Phosphatase) ALT (SGPT) (test code = ALT (SGPT)) 15.0000 10.0000-47.0 000 AST (SGOT) (test code = AST (SGOT)) 19.0000 11.0000-37.0 000 Bilirubin, Total (test code = Bilirubin, 0.5000 mg/dL 0.0000- 1.6000 Total) Albumin (test code = Albumin) 4.3000 g/dL 3.5000-5.5000 Protein, Total (test code = Protein, 6.8000 g/dL 6.4000-8.10 00 Total) Iron, [id number] 15:21:00 Test Item Value Reference Range Comments Iron, Total (test code = Iron, Total) 38.0000 27.0000-13 9.0000 TIBC (test code = TIBC) 246.0000 250.0000-450.0000 UIBC (test code = UIBC) 208.0000 118.0000-369.0000 % Iron Saturation (test code = % Iron 15.0000 % 15.0000-55 .0000 Saturation) Ferritin (test code = Ferritin) 347.0000 ng/mL 15.0000-150.0000 [id number] 15:06:00 Test Item Value Reference Range Comments Creatinine (test code = Creatinine) 0.9000 mg/dL 0.5000-1.200 0 Cr Clearance (Est) (test code = Cr 66.9200 75.0000-115.0 000 Clearance (Est)) Glucose (test code = Glucose) 94.0000 mg/dL 70.0000-118.0000 BUN (test code = BUN) 24.0000 mg/dL 7.0000-22.0000 Sodium (test code = Sodium) 138.0000 mmol/L 128.0000-145.0000 Potassium (test code = Potassium) 3.5000 mmol/L 3.6000-5.1000 Chloride (test code = Chloride) 107.0000 mmol/L 96.0000-108.0000 CO2 (test code = CO2) 31.0000 mmol/L 18.0000-33.0000 Calcium (test code = Calcium) 7.9400 mg/dL 8.0000-10.3000 Alkaline Phosphatase (test code = Alkaline 115.0000 42.00 00-141.0000 Phosphatase) ALT (SGPT) (test code = ALT (SGPT)) 17.0000 10.0000-47.0 000 AST (SGOT) (test code = AST (SGOT)) 19.0000 11.0000-37.0 000 Bilirubin, Total (test code = Bilirubin, 0.5000 mg/dL 0.0000- 1.6000 Total) Albumin (test code = Albumin) 4.2000 g/dL 3.5000-5.5000 Protein, Total (test code = Protein, 6.9000 g/dL 6.4000-8.10 00 Total) [id number] 15:05:00 Test Item Value Reference Range Comments WBC (test code = WBC) 5.0000 4.0000-10.0000 Lymphocytes % (test code = Lymphocytes %) 24.1000 % 22.400 0-43.6000 MID% (test code = MID%) 7.3000 % 1.2000-11.2000 Neutrophils % (test code = Neutrophils %) 68.6000 % 48.900 0-69.9000 Lymphocytes (test code = Lymphocytes) 1.2000 1.2000-3.2 000 MID (test code = MID) 0.4000 0.1000-1.1000 Neutrophils (test code = Neutrophils) 3.4000 1.5000-6.7 000 RBC (test code = RBC) 3.7800 3.7000-4.9000 HGB (test code = HGB) 11.5000 g/dL 11.1999-14.4000 HCT (test code = HCT) 34.9000 % 34.0000-44.0000 MCV (test code = MCV) 92.3000 fL 80.0000-94.0000 MCH (test code = MCH) 30.4000 pg 27.0000-34.0000 MCHC (test code = MCHC) 32.9000 g/dL 31.5000-36.0000 RDW (test code = RDW) 14.9000 11.0000-18.0000 PLT (test code = PLT) 251.0000 140.0000-440.0000 MPV (test code = MPV) 9.2000 fL 6.8000-10.6000 Iron, [id number] 13:47:00 Test Item Value Reference Range Comments Iron, Total (test code = Iron, Total) 68.0000 27.0000-13 9.0000 TIBC (test code = TIBC) 241.0000 250.0000-450.0000 UIBC (test code = UIBC) 173.0000 118.0000-369.0000 % Iron Saturation (test code = % Iron 28.0000 % 15.0000-55 .0000 Saturation) Vitamin B12 (test code = Vitamin B12) 2000.0000 pg/mL 211.0000-9 46.0000 Ferritin (test code = Ferritin) 251.0000 ng/mL 15.0000-150.0000 [id number] 13:03:00 Test Item Value Reference Range Comments WBC (test code = WBC) 4.6000 4.0000-10.0000 Lymphocytes % (test code = Lymphocytes %) 18.8000 % 22.400 0-43.6000 MID% (test code = MID%) 5.6000 % 1.2000-11.2000 Neutrophils % (test code = Neutrophils %) 75.6000 % 48.900 0-69.9000 Lymphocytes (test code = Lymphocytes) 0.8000 1.2000-3.2 000 MID (test code = MID) 0.3000 0.1000-1.1000 Neutrophils (test code = Neutrophils) 3.5000 1.5000-6.7 000 RBC (test code = RBC) 4.4200 3.7000-4.9000 HGB (test code = HGB) 12.9000 g/dL 11.2000-14.4000 HCT (test code = HCT) 40.6000 % 34.0000-44.0000 MCV (test code = MCV) 91.7000 fL 80.0000-94.0000 MCH (test code = MCH) 29.2000 pg 27.0000-34.0000 MCHC (test code = MCHC) 31.8000 g/dL 31.5000-36.0000 RDW (test code = RDW) 14.3000 11.0000-18.0000 PLT (test code = PLT) 207.0000 140.0000-440.0000 MPV (test code = MPV) 8.9000 fL 6.8000-10.6000 [id number] 13:03:00 Test Item Value Reference Range Comments Creatinine (test code = Creatinine) 0.9000 mg/dL 0.5000-1.200 0 Cr Clearance (Est) (test code = Cr 64.8900 75.0000-115.0 000 Clearance (Est)) Glucose (test code = Glucose) 129.0000 mg/dL 70.0000-118.0000 BUN (test code = BUN) 27.0000 mg/dL 7.0000-22.0000 Sodium (test code = Sodium) 142.0000 mmol/L 128.0000-145.0000 Potassium (test code = Potassium) 3.3000 mmol/L 3.6000-5.1000 Chloride (test code = Chloride) 106.0000 mmol/L 96.0000-108.0000 CO2 (test code = CO2) 27.0000 mmol/L 18.0000-33.0000 Calcium (test code = Calcium) 10.0800 mg/dL 8.0000-10.3000 Alkaline Phosphatase (test code = Alkaline 76.0000 42.00 00-141.0000 Phosphatase) ALT (SGPT) (test code = ALT (SGPT)) 16.0000 10.0000-47.0 000 AST (SGOT) (test code = AST (SGOT)) 19.0000 11.0000-37.0 000 Bilirubin, Total (test code = Bilirubin, 0.6000 mg/dL 0.0000- 1.6000 Total) Albumin (test code = Albumin) 4.4000 g/dL 3.5000-5.5000 Protein, Total (test code = Protein, 6.9000 g/dL 6.4000-8.10 00 Total) [id number] 13:57:00 Test Item Value Reference Range Comments Creatinine (test code = Creatinine) 0.8200 mg/dL 0.5700-1.000 0 Cr Clearance (Est) (test code = Cr 70.1100 75.0000-115.0 000 Clearance (Est)) Glucose (test code = Glucose) 97.0000 mg/dL 65.0000-99.0000 BUN (test code = BUN) 23.0000 mg/dL 8.0000-27.0000 eGFR Dma-Ynxpbfh-Kgplrddu (test code = 73.0000 eGFR Qym-Ajeupgz-Pesbabws) eGFR -Mexican (test code = eGFR 84.0000 -Mexican) BUN/Creat Ratio (test code = BUN/Creat 28.0000 11.0000-2 6.0000 Ratio) Sodium (test code = Sodium) 144.0000 mmol/L 134.0000-144.0000 Potassium (test code = Potassium) 4.7000 mmol/L 3.5000-5.2000 Chloride (test code = Chloride) 103.0000 mmol/L 97.0000-108.0000 CO2 (test code = CO2) 26.0000 mmol/L 18.0000-29.0000 Calcium (test code = Calcium) 9.0000 mg/dL 8.7000-10.3000 Protein, Total (test code = Protein, 6.4000 g/dL 6.0000-8.50 00 Total) Albumin (test code = Albumin) 4.1000 g/dL 3.6000-4.8000 Globulin (test code = Globulin) 2.3000 g/dL 1.5000-4.5000 A/G Ratio (test code = A/G Ratio) 1.8000 1.1000-2.5000 Bilirubin, Total (test code = Bilirubin, 0.5000 mg/dL 0.0000- 1.2000 Total) Alkaline Phosphatase (test code = Alkaline 65.0000 39.00 00-117.0000 Phosphatase) AST (SGOT) (test code = AST (SGOT)) 24.0000 0.0000-40.00 00 ALT (SGPT) (test code = ALT (SGPT)) 24.0000 0.0000-32.00 00 Iron, Total (test code = Iron, Total) 93.0000 35.0000-15 5.0000 TIBC (test code = TIBC) 254.0000 250.0000-450.0000 UIBC (test code = UIBC) 161.0000 150.0000-375.0000 % Iron Saturation (test code = % Iron 37.0000 % 15.0000-55 .0000 Saturation) Ferritin (test code = Ferritin) 279.0000 ng/mL 15.0000-150.0000 [id number] 10:03:00 Test Item Value Reference Range Comments WBC (test code = WBC) 5.0000 4.0000-10.0000 Lymphocytes % (test code = Lymphocytes %) 19.7000 % 22.400 0-43.6000 MID% (test code = MID%) 7.2000 % .1999-11 Neutrophils % (test code = Neutrophils %) 73.1000 % 48.900 0-69.9000 Lymphocytes (test code = Lymphocytes) 0.9000 1.2000-3.2 000 MID (test code = MID) 0.5000 0.1000-1.1000 Neutrophils (test code = Neutrophils) 3.6000 1.5000-6.7 000 RBC (test code = RBC) 3.3300 3.7000-4.9000 HGB (test code = HGB) 13.1000 g/dL 11.1999-14.3999 HCT (test code = HCT) 30.4000 % 34.0000-44.0000 MCV (test code = MCV) 91.2000 fL 80.0000-94.0000 MCH (test code = MCH) 39.3000 pg 27.0000-34.0000 MCHC (test code = MCHC) 43.1000 g/dL 31.5000-36.0000 RDW (test code = RDW) 14.2000 11.0000-18.0000 PLT (test code = PLT) 157.0000 140.0000-440.0000 MPV (test code = MPV) 8.2000 fL 6.8000-10.6000 [id number] 09:04:00 Test Item Value Reference Range Comments WBC (test code = WBC) 5.5000 4.2000-10.0000 Lymphocytes % (test code = Lymphocytes %) 20.1000 % 22.400 0-43.6000 MID% (test code = MID%) 6.0000 % - Neutrophils % (test code = Neutrophils %) 73.9000 % 48.900 0-69.9000 Lymphocytes (test code = Lymphocytes) 1.1000 1.2000-3.2 000 MID (test code = MID) 0.3000 0.1000-1.1000 Neutrophils (test code = Neutrophils) 4.1000 1.5000-6.7 000 RBC (test code = RBC) 4.3300 4.5000-6.3000 HGB (test code = HGB) 13.1000 g/dL 14.0000-18.0000 HCT (test code = HCT) 39.3000 % 41.0000-51.0000 MCV (test code = MCV) 90.6000 fL 80.0000-94.0000 MCH (test code = MCH) 30.3000 pg 27.0000-34.0000 MCHC (test code = MCHC) 33.5000 g/dL 31.5000-36.0000 RDW (test code = RDW) 14.7000 11.0000-18.0000 PLT (test code = PLT) 253.0000 140.0000-440.0000 MPV (test code = MPV) 8.2000 fL 6.8000-10.6000 Iron, [id number] 10:28:00 Test Item Value Reference Range Comments Iron, Total (test code = Iron, Total) 65.0000 35.0000-15 5.0000 TIBC (test code = TIBC) 228.0000 250.0000-450.0000 UIBC (test code = UIBC) 163.0000 150.0000-375.0000 % Iron Saturation (test code = % Iron 29.0000 % 15.0000-55 .0000 Saturation) Vitamin B12 (test code = Vitamin B12) 1471.0000 pg/mL 211.0000-9 46.0000 Ferritin (test code = Ferritin) 333.0000 ng/mL 15.0000-150.0000 [id number] 10:04:00 Test Item Value Reference Range Comments WBC (test code = WBC) 4.9000 4.2000-10.0000 Lymphocytes % (test code = Lymphocytes %) 19.8000 % 22.400 0-43.6000 MID% (test code = MID%) 5.7000 % 1.2000-11.2000 Neutrophils % (test code = Neutrophils %) 74.5000 % 48.900 0-69.9000 Lymphocytes (test code = Lymphocytes) 0.9000 1.2000-3.2 000 MID (test code = MID) 0.3000 0.1000-1.1000 Neutrophils (test code = Neutrophils) 3.7000 1.5000-6.7 000 RBC (test code = RBC) 4.1500 4.5000-6.3000 HGB (test code = HGB) 12.9000 g/dL 14.0000-18.0000 HCT (test code = HCT) 38.7000 % 41.0000-51.0000 MCV (test code = MCV) 93.2000 fL 80.0000-94.0000 MCH (test code = MCH) 31.0000 pg 27.0000-34.0000 MCHC (test code = MCHC) 33.3000 g/dL 31.5000-36.0000 RDW (test code = RDW) 14.4000 11.0000-18.0000 PLT (test code = PLT) 200.0000 140.0000-440.0000 MPV (test code = MPV) 7.7000 fL 6.8000-10.6000 [id number] 10:04:00 Test Item Value Reference Range Comments Creatinine (test code = Creatinine) 0.8000 mg/dL 0.5000-1.200 0 Cr Clearance (Est) (test code = Cr 70.6500 75.0000-115.0 000 Clearance (Est)) Glucose (test code = Glucose) 96.0000 mg/dL 70.0000-118.0000 BUN (test code = BUN) 25.0000 mg/dL 7.0000-22.0000 Sodium (test code = Sodium) 141.0000 mmol/L 128.0000-145.0000 Potassium (test code = Potassium) 4.1000 mmol/L 3.6000-5.1000 Chloride (test code = Chloride) 103.0000 mmol/L 96.0000-108.0000 CO2 (test code = CO2) 32.0000 mmol/L 18.0000-33.0000 Calcium (test code = Calcium) 8.7700 mg/dL 8.0000-10.3000 Alkaline Phosphatase (test code = Alkaline 70.0000 42.00 00-141.0000 Phosphatase) ALT (SGPT) (test code = ALT (SGPT)) 20.0000 10.0000-47.0 000 AST (SGOT) (test code = AST (SGOT)) 19.0000 11.0000-37.0 000 Bilirubin, Total (test code = Bilirubin, 0.5000 mg/dL 0.0000- 1.6000 Total) Albumin (test code = Albumin) 4.1000 g/dL 3.5000-5.5000 Protein, Total (test code = Protein, 6.5000 g/dL 6.4000-8.10 00 Total) [id number] 12:14:00 Test Item Value Reference Range Comments Creatinine (test code = Creatinine) 0.8500 mg/dL 0.5700-1.000 0 Cr Clearance (Est) (test code = Cr 64.8600 75.0000-115.0 000 Clearance (Est)) Glucose (test code = Glucose) 159.0000 mg/dL 65.0000-99.0000 BUN (test code = BUN) 18.0000 mg/dL 8.0000-27.0000 eGFR Jkp-Lkalhqn-Vjpekldp (test code = 71.0000 eGFR Yth-Ctlvjqe-Ybssxtry) eGFR -Mexican (test code = eGFR 81.0000 -Mexican) BUN/Creat Ratio (test code = BUN/Creat 21.0000 11.0000-2 6.0000 Ratio) Sodium (test code = Sodium) 141.0000 mmol/L 134.0000-144.0000 Potassium (test code = Potassium) 3.8000 mmol/L 3.5000-5.2000 Chloride (test code = Chloride) 100.0000 mmol/L 97.0000-108.0000 CO2 (test code = CO2) 24.0000 mmol/L 18.0000-29.0000 Calcium (test code = Calcium) 9.0000 mg/dL 8.6000-10.2000 Protein, Total (test code = Protein, 6.3000 g/dL 6.0000-8.50 00 Total) Albumin (test code = Albumin) 3.9000 g/dL 3.6000-4.8000 Globulin (test code = Globulin) 2.4000 g/dL 1.5000-4.5000 A/G Ratio (test code = A/G Ratio) 1.6000 1.1000-2.5000 Bilirubin, Total (test code = Bilirubin, 0.4000 mg/dL 0.0000- 1.2000 Total) Alkaline Phosphatase (test code = Alkaline 72.0000 39.00 00-117.0000 Phosphatase) AST (SGOT) (test code = AST (SGOT)) 19.0000 0.0000-40.00 00 ALT (SGPT) (test code = ALT (SGPT)) 15.0000 0.0000-32.00 00 Iron, Total (test code = Iron, Total) 48.0000 35.0000-15 5.0000 TIBC (test code = TIBC) 203.0000 250.0000-450.0000 UIBC (test code = UIBC) 155.0000 150.0000-375.0000 % Iron Saturation (test code = % Iron 24.0000 % 15.0000-55 .0000 Saturation) Ferritin (test code = Ferritin) 431.0000 ng/mL 15.0000-150.0000 [id number] 09:05:00 Test Item Value Reference Range Comments WBC (test code = WBC) 5.0000 4.2000-10.0000 Lymphocytes % (test code = Lymphocytes %) 16.8000 % 22.400 0-43.6000 MID% (test code = MID%) 4.2000 % 1.2000-11.2000 Neutrophils % (test code = Neutrophils %) 79.0000 % 48.900 0-69.9000 Lymphocytes (test code = Lymphocytes) 0.8000 1.2000-3.2 000 MID (test code = MID) 0.2000 0.1000-1.1000 Neutrophils (test code = Neutrophils) 4.0000 1.5000-6.7 000 RBC (test code = RBC) 4.0300 4.5000-6.3000 HGB (test code = HGB) 11.8000 g/dL 14.0000-18.0000 HCT (test code = HCT) 36.0000 % 41.0000-51.0000 MCV (test code = MCV) 89.2000 fL 80.0000-94.0000 MCH (test code = MCH) 29.4000 pg 27.0000-34.0000 MCHC (test code = MCHC) 32.9000 g/dL 31.5000-36.0000 RDW (test code = RDW) 15.0000 11.0000-18.0000 PLT (test code = PLT) 230.0000 140.0000-440.0000 MPV (test code = MPV) 8.2000 fL 6.8000-10.6000 [id number] 13:39:00 Test Item Value Reference Range Comments Creatinine (test code = Creatinine) 0.7100 mg/dL 0.5700-1.000 0 Cr Clearance (Est) (test code = Cr 84.2400 75.0000-115.0 000 Clearance (Est)) Glucose (test code = Glucose) 94.0000 mg/dL 65.0000-99.0000 BUN (test code = BUN) 23.0000 mg/dL 8.0000-27.0000 eGFR Pgo-Ezjbefw-Nucvzdao (test code = 88.0000 eGFR Qri-Xjsfqbt-Kugcookx) eGFR -Mexican (test code = eGFR 102.0000 -Mexican) BUN/Creat Ratio (test code = BUN/Creat 32.0000 11.0000-2 6.0000 Ratio) Sodium (test code = Sodium) 143.0000 mmol/L 134.0000-144.0000 Potassium (test code = Potassium) 3.6000 mmol/L 3.5000-5.2000 Chloride (test code = Chloride) 102.0000 mmol/L 97.0000-108.0000 CO2 (test code = CO2) 25.0000 mmol/L 18.0000-29.0000 Calcium (test code = Calcium) 8.8000 mg/dL 8.6000-10.2000 Protein, Total (test code = Protein, 6.2000 g/dL 6.0000-8.50 00 Total) Albumin (test code = Albumin) 3.7000 g/dL 3.6000-4.8000 Globulin (test code = Globulin) 2.5000 g/dL 1.5000-4.5000 A/G Ratio (test code = A/G Ratio) 1.5000 1.1000-2.5000 Bilirubin, Total (test code = Bilirubin, 0.6000 mg/dL 0.0000- 1.2000 Total) Alkaline Phosphatase (test code = Alkaline 71.0000 39.00 00-117.0000 Phosphatase) AST (SGOT) (test code = AST (SGOT)) 20.0000 0.0000-40.00 00 ALT (SGPT) (test code = ALT (SGPT)) 16.0000 0.0000-32.00 00 Iron, Total (test code = Iron, Total) 62.0000 35.0000-15 5.0000 TIBC (test code = TIBC) 197.0000 250.0000-450.0000 UIBC (test code = UIBC) 135.0000 150.0000-375.0000 % Iron Saturation (test code = % Iron 31.0000 % 15.0000-55 .0000 Saturation) Ferritin (test code = Ferritin) 509.0000 ng/mL 15.0000-150.0000 [id number] 10:02:00 Test Item Value Reference Range Comments WBC (test code = WBC) 4.9000 4.2000-10.0000 Lymphocytes % (test code = Lymphocytes %) 19.0000 % 22.400 0-43.6000 MID% (test code = MID%) 5.9000 % 1.2000-11.2000 Neutrophils % (test code = Neutrophils %) 75.1000 % 48.900 0-69.9000 Lymphocytes (test code = Lymphocytes) 0.9000 1.2000-3.2 000 MID (test code = MID) 0.4000 0.1000-1.1000 Neutrophils (test code = Neutrophils) 3.6000 1.5000-6.7 000 RBC (test code = RBC) 4.1400 4.5000-6.3000 HGB (test code = HGB) 12.2000 g/dL 14.0000-18.0000 HCT (test code = HCT) 37.3000 % 41.0000-51.0000 MCV (test code = MCV) 90.0000 fL 80.0000-94.0000 MCH (test code = MCH) 29.6000 pg 27.0000-34.0000 MCHC (test code = MCHC) 32.9000 g/dL 31.5000-36.0000 RDW (test code = RDW) 15.8000 11.0000-18.0000 PLT (test code = PLT) 224.0000 140.0000-440.0000 MPV (test code = MPV) 7.9000 fL 6.8000-10.6000 [id number] 09:29:00 Test Item Value Reference Range Comments Creatinine (test code = Creatinine) 0.8600 mg/dL 0.5700-1.000 0 Cr Clearance (Est) (test code = Cr 75.9100 75.0000-115.0 000 Clearance (Est)) Glucose (test code = Glucose) 101.0000 mg/dL 65.0000-99.0000 BUN (test code = BUN) 22.0000 mg/dL 8.0000-27.0000 eGFR Uuv-Lwvcion-Blwwzazh (test code = 70.0000 eGFR Lma-Gzybtbt-Trjdplzi) eGFR -Mexican (test code = eGFR 81.0000 -Mexican) BUN/Creat Ratio (test code = BUN/Creat 26.0000 11.0000-2 6.0000 Ratio) Sodium (test code = Sodium) 139.0000 mmol/L 134.0000-144.0000 Potassium (test code = Potassium) 4.1000 mmol/L 3.5000-5.2000 Chloride (test code = Chloride) 100.0000 mmol/L 97.0000-108.0000 CO2 (test code = CO2) 27.0000 mmol/L 18.0000-29.0000 Calcium (test code = Calcium) 9.1000 mg/dL 8.6000-10.2000 Protein, Total (test code = Protein, 6.4000 g/dL 6.0000-8.50 00 Total) Albumin (test code = Albumin) 4.3000 g/dL 3.6000-4.8000 Globulin (test code = Globulin) 2.1000 g/dL 1.5000-4.5000 A/G Ratio (test code = A/G Ratio) 2.0000 1.1000-2.5000 Bilirubin, Total (test code = Bilirubin, 0.4000 mg/dL 0.0000- 1.2000 Total) Alkaline Phosphatase (test code = Alkaline 68.0000 39.00 00-117.0000 Phosphatase) AST (SGOT) (test code = AST (SGOT)) 25.0000 0.0000-40.00 00 ALT (SGPT) (test code = ALT (SGPT)) 28.0000 0.0000-32.00 00 Iron, Total (test code = Iron, Total) 91.0000 35.0000-15 5.0000 TIBC (test code = TIBC) 235.0000 250.0000-450.0000 UIBC (test code = UIBC) 144.0000 150.0000-375.0000 % Iron Saturation (test code = % Iron 39.0000 % 15.0000-55 .0000 Saturation) Ferritin (test code = Ferritin) 407.0000 ng/mL 15.0000-150.0000 [id number] 09:07:00 Test Item Value Reference Range Comments WBC (test code = WBC) 5.5000 4.2000-10.0000 Lymphocytes % (test code = Lymphocytes %) 20.3000 % 22.400 0-43.6000 MID% (test code = MID%) 6.0000 % 1.2000-11.2000 Neutrophils % (test code = Neutrophils %) 73.7000 % 48.900 0-69.9000 Lymphocytes (test code = Lymphocytes) 1.1000 1.2000-3.2 000 MID (test code = MID) 0.4000 0.1000-1.1000 Neutrophils (test code = Neutrophils) 4.0000 1.5000-6.7 000 RBC (test code = RBC) 4.1900 4.5000-6.3000 HGB (test code = HGB) 13.0000 g/dL 14.0000-18.0000 HCT (test code = HCT) 38.3000 % 41.0000-51.0000 MCV (test code = MCV) 91.6000 fL 80.0000-94.0000 MCH (test code = MCH) 31.2000 pg 27.0000-34.0000 MCHC (test code = MCHC) 34.0000 g/dL 31.5000-36.0000 RDW (test code = RDW) 15.4000 11.0000-18.0000 PLT (test code = PLT) 197.0000 140.0000-440.0000 MPV (test code = MPV) 7.9000 fL 6.8000-10.6000 [id number] 13:27:00 Test Item Value Reference Range Comments Creatinine (test code = Creatinine) 0.8700 mg/dL 0.5700-1.000 0 Cr Clearance (Est) (test code = Cr 75.6700 75.0000-115.0 000 Clearance (Est)) Glucose (test code = Glucose) 116.0000 mg/dL 65.0000-99.0000 BUN (test code = BUN) 21.0000 mg/dL 8.0000-27.0000 eGFR Nnn-Olibdya-Uqrzorfc (test code = 69.0000 eGFR Xfd-Jqymajm-Cpwhclty) eGFR -Mexican (test code = eGFR 80.0000 -Mexican) BUN/Creat Ratio (test code = BUN/Creat 24.0000 11.0000-2 6.0000 Ratio) Sodium (test code = Sodium) 141.0000 mmol/L 134.0000-144.0000 Potassium (test code = Potassium) 4.1000 mmol/L 3.5000-5.2000 Chloride (test code = Chloride) 101.0000 mmol/L 97.0000-108.0000 CO2 (test code = CO2) 27.0000 mmol/L 19.0000-28.0000 Calcium (test code = Calcium) 9.4000 mg/dL 8.6000-10.2000 Protein, Total (test code = Protein, 6.5000 g/dL 6.0000-8.50 00 Total) Albumin (test code = Albumin) 4.3000 g/dL 3.6000-4.8000 Globulin (test code = Globulin) 2.2000 g/dL 1.5000-4.5000 A/G Ratio (test code = A/G Ratio) 2.0000 1.1000-2.5000 Bilirubin, Total (test code = Bilirubin, 0.4000 mg/dL 0.0000- 1.2000 Total) Alkaline Phosphatase (test code = Alkaline 63.0000 39.00 00-117.0000 Phosphatase) AST (SGOT) (test code = AST (SGOT)) 32.0000 0.0000-40.00 00 ALT (SGPT) (test code = ALT (SGPT)) 30.0000 0.0000-32.00 00 [id number] 08:03:00 Test Item Value Reference Range Comments WBC (test code = WBC) 5.6000 4.2000-10.0000 Lymphocytes % (test code = Lymphocytes %) 25.7000 % 22.400 0-43.6000 MID% (test code = MID%) 5.8000 % 1.2000-11.2000 Neutrophils % (test code = Neutrophils %) 68.5000 % 48.900 0-69.9000 Lymphocytes (test code = Lymphocytes) 1.4000 1.2000-3.2 000 MID (test code = MID) 0.4000 0.1000-1.1000 Neutrophils (test code = Neutrophils) 3.8000 1.5000-6.7 000 RBC (test code = RBC) 4.1900 4.5000-6.3000 HGB (test code = HGB) 13.0000 g/dL 14.0000-18.0000 HCT (test code = HCT) 38.6000 % 41.0000-51.0000 MCV (test code = MCV) 92.2000 fL 80.0000-94.0000 MCH (test code = MCH) 31.2000 pg 27.0000-34.0000 MCHC (test code = MCHC) 33.8000 g/dL 31.5000-36.0000 RDW (test code = RDW) 15.8000 11.0000-18.0000 PLT (test code = PLT) 151.0000 140.0000-440.0000 MPV (test code = MPV) 9.5000 fL 6.8000-10.6000 [id number] 10:13:00 Test Item Value Reference Range Comments Creatinine (test code = Creatinine) 0.8300 mg/dL 0.5700-1.000 0 Cr Clearance (Est) (test code = Cr 80.0200 75.0000-115.0 000 Clearance (Est)) Glucose (test code = Glucose) 92.0000 mg/dL 65.0000-99.0000 BUN (test code = BUN) 21.0000 mg/dL 8.0000-27.0000 eGFR Ipo-Xiqhfxd-Ondukfaq (test code = 74.0000 eGFR Vlq-Xwstpmh-Plwnnwig) eGFR -Mexican (test code = eGFR 85.0000 -Mexican) BUN/Creat Ratio (test code = BUN/Creat 25.0000 11.0000-2 6.0000 Ratio) Sodium (test code = Sodium) 141.0000 mmol/L 134.0000-144.0000 Potassium (test code = Potassium) 4.1000 mmol/L 3.5000-5.2000 Chloride (test code = Chloride) 100.0000 mmol/L 97.0000-108.0000 CO2 (test code = CO2) 25.0000 mmol/L 19.0000-28.0000 Calcium (test code = Calcium) 9.4000 mg/dL 8.6000-10.2000 Protein, Total (test code = Protein, 6.9000 g/dL 6.0000-8.50 00 Total) Albumin (test code = Albumin) 4.3000 g/dL 3.6000-4.8000 Globulin (test code = Globulin) 2.6000 g/dL 1.5000-4.5000 A/G Ratio (test code = A/G Ratio) 1.7000 1.1000-2.5000 Bilirubin, Total (test code = Bilirubin, 0.5000 mg/dL 0.0000- 1.2000 Total) Alkaline Phosphatase (test code = Alkaline 67.0000 47.00 00-112.0000 Phosphatase) AST (SGOT) (test code = AST (SGOT)) 34.0000 0.0000-40.00 00 ALT (SGPT) (test code = ALT (SGPT)) 37.0000 0.0000-32.00 00 Iron, Total (test code = Iron, Total) 100.0000 35.0000-15 5.0000 TIBC (test code = TIBC) 221.0000 250.0000-450.0000 UIBC (test code = UIBC) 121.0000 150.0000-375.0000 % Iron Saturation (test code = % Iron 45.0000 % 15.0000-55 .0000 Saturation) Ferritin (test code = Ferritin) 543.0000 ng/mL 15.0000-150.0000 [id number] 10:10:00 Test Item Value Reference Range Comments WBC (test code = WBC) 4.8000 4.2000-10.0000 Lymphocytes % (test code = Lymphocytes %) 27.1000 % 22.400 0-43.6000 MID% (test code = MID%) 6.1000 % 1.1999-11.1999 Neutrophils % (test code = Neutrophils %) 66.8000 % 48.900 0-69.9000 Lymphocytes (test code = Lymphocytes) 1.3000 1.2000-3.2 000 MID (test code = MID) 0.3000 0.1000-1.1000 Neutrophils (test code = Neutrophils) 3.2000 1.5000-6.7 000 RBC (test code = RBC) 4.4700 4.5000-6.3000 HGB (test code = HGB) 14.2000 g/dL 14.0000-18.0000 HCT (test code = HCT) 40.8000 % 41.0000-51.0000 MCV (test code = MCV) 91.1000 fL 80.0000-94.0000 MCH (test code = MCH) 31.8000 pg 27.0000-34.0000 MCHC (test code = MCHC) 34.9000 g/dL 31.5000-36.0000 RDW (test code = RDW) 16.3000 11.0000-14.6000 PLT (test code = PLT) 215.0000 140.0000-440.0000 MPV (test code = MPV) 8.1000 fL 6.8000-10.6000 [id number] 09:08:00 Test Item Value Reference Range Comments WBC (test code = WBC) 4.8000 4.2000-10.0000 Lymphocytes % (test code = Lymphocytes %) 23.9000 % 22.400 0-43.6000 MID% (test code = MID%) 5.0000 % .1999-11 Neutrophils % (test code = Neutrophils %) 71.1000 % 48.900 0-69.9000 Lymphocytes (test code = Lymphocytes) 1.1000 1.2000-3.2 000 MID (test code = MID) 0.3000 0.1000-1.1000 Neutrophils (test code = Neutrophils) 3.4000 1.5000-6.7 000 RBC (test code = RBC) 4.3400 4.5000-6.3000 HGB (test code = HGB) 13.4000 g/dL 14.0000-18.0000 HCT (test code = HCT) 40.7000 % 41.0000-51.0000 MCV (test code = MCV) 93.8000 fL 80.0000-94.0000 MCH (test code = MCH) 30.9000 pg 27.0000-34.0000 MCHC (test code = MCHC) 32.9000 g/dL 31.5000-36.0000 RDW (test code = RDW) 16.0000 11.0000-14.6000 PLT (test code = PLT) 175.0000 140.0000-440.0000 MPV (test code = MPV) 8.2000 fL 6.8000-10.6000 [id number] 09:00:00 Test Item Value Reference Range Comments WBC (test code = WBC) 5.9000 4.2000-10.0000 MID% (test code = MID%) 6.4000 % 1.2000-11.2000 Lymphocytes % (test code = Lymphocytes %) 21.2000 % 22.400 0-43.6000 Neutrophils % (test code = Neutrophils %) 72.4000 % 48.900 0-69.9000 Lymphocytes (test code = Lymphocytes) 1.2000 1.2000-3.2 000 MID (test code = MID) 0.5000 0.1000-1.1000 Neutrophils (test code = Neutrophils) 4.2000 1.5000-6.7 000 RBC (test code = RBC) 4.4000 4.5000-6.3000 HGB (test code = HGB) 14.2000 g/dL 14.0000-18.0000 HCT (test code = HCT) 42.9000 % 41.0000-51.0000 MCV (test code = MCV) 97.4000 fL 80.0000-94.0000 MCH (test code = MCH) 32.4000 pg 27.0000-34.0000 MCHC (test code = MCHC) 33.2000 g/dL 31.5000-36.0000 RDW (test code = RDW) 16.0000 11.0000-14.6000 PLT (test code = PLT) 177.0000 140.0000-440.0000 MPV (test code = MPV) 8.7000 fL 6.8000-10.6000 [id number] 09:44:00 Test Item Value Reference Range Comments Creatinine (test code = Creatinine) 0.8200 mg/dL 0.5700-1.000 0 Cr Clearance (Est) (test code = Cr 83.1700 75.0000-115.0 000 Clearance (Est)) Glucose (test code = Glucose) 141.0000 mg/dL 65.0000-99.0000 BUN (test code = BUN) 26.0000 mg/dL 8.0000-27.0000 eGFR Lzr-Hzyvnfb-Wgsaqanu (test code = 75.0000 eGFR Hpf-Eeudezq-Pwflueyu) eGFR -Mexican (test code = eGFR 87.0000 -Mexican) BUN/Creat Ratio (test code = BUN/Creat 32.0000 11.0000-2 6.0000 Ratio) Sodium (test code = Sodium) 139.0000 mmol/L 134.0000-144.0000 Potassium (test code = Potassium) 3.8000 mmol/L 3.5000-5.2000 Chloride (test code = Chloride) 101.0000 mmol/L 97.0000-108.0000 CO2 (test code = CO2) 22.0000 mmol/L 20.0000-32.0000 Calcium (test code = Calcium) 9.3000 mg/dL 8.6000-10.2000 Protein, Total (test code = Protein, 6.6000 g/dL 6.0000-8.50 00 Total) Albumin (test code = Albumin) 4.2000 g/dL 3.6000-4.8000 Globulin (test code = Globulin) 2.4000 g/dL 1.5000-4.5000 A/G Ratio (test code = A/G Ratio) 1.8000 1.1000-2.5000 Bilirubin, Total (test code = Bilirubin, 0.4000 mg/dL 0.0000- 1.2000 Total) Alkaline Phosphatase (test code = Alkaline 79.0000 25.00 00-165.0000 Phosphatase) AST (SGOT) (test code = AST (SGOT)) 42.0000 0.0000-40.00 00 ALT (SGPT) (test code = ALT (SGPT)) 69.0000 0.0000-40.00 00 [id number] 09:05:00 Test Item Value Reference Range Comments WBC (test code = WBC) 5.6000 4.2000-10.0000 MID% (test code = MID%) 5.8000 % 1.2000-11.2000 Lymphocytes % (test code = Lymphocytes %) 22.1000 % 22.400 0-43.6000 Neutrophils % (test code = Neutrophils %) 72.1000 % 48.900 0-69.9000 Lymphocytes (test code = Lymphocytes) 1.2000 1.2000-3.2 000 MID (test code = MID) 0.4000 0.1000-1.1000 Neutrophils (test code = Neutrophils) 4.0000 1.5000-6.7 000 RBC (test code = RBC) 4.8300 4.5000-6.3000 HGB (test code = HGB) 14.1000 g/dL 14.0000-18.0000 HCT (test code = HCT) 43.3000 % 41.0000-51.0000 MCV (test code = MCV) 89.5000 fL 80.0000-94.0000 MCH (test code = MCH) 29.3000 pg 27.0000-34.0000 MCHC (test code = MCHC) 32.7000 g/dL 31.5000-36.0000 RDW (test code = RDW) 22.4000 11.0000-14.6000 PLT (test code = PLT) 192.0000 140.0000-440.0000 MPV (test code = MPV) 7.8000 fL 6.8000-10.6000 [id number] 10:35:00 Test Item Value Reference Range Comments Creatinine (test code = Creatinine) 0.7400 mg/dL 0.5700-1.000 0 Cr Clearance (Est) (test code = Cr 93.6800 75.0000-115.0 000 Clearance (Est)) Glucose (test code = Glucose) 171.0000 mg/dL 65.0000-99.0000 BUN (test code = BUN) 16.0000 mg/dL 8.0000-27.0000 eGFR Lxs-Slzluby-Hdihatpj (test code = 85.0000 eGFR Sfi-Ittssws-Znirldfd) eGFR -Mexican (test code = eGFR 98.0000 -Mexican) BUN/Creat Ratio (test code = BUN/Creat 22.0000 11.0000-2 6.0000 Ratio) Sodium (test code = Sodium) 138.0000 mmol/L 134.0000-144.0000 Potassium (test code = Potassium) 3.7000 mmol/L 3.5000-5.2000 Chloride (test code = Chloride) 102.0000 mmol/L 97.0000-108.0000 CO2 (test code = CO2) 24.0000 mmol/L 20.0000-32.0000 Calcium (test code = Calcium) 9.1000 mg/dL 8.6000-10.2000 Protein, Total (test code = Protein, 6.3000 g/dL 6.0000-8.50 00 Total) Albumin (test code = Albumin) 4.1000 g/dL 3.6000-4.8000 Globulin (test code = Globulin) 2.2000 g/dL 1.5000-4.5000 A/G Ratio (test code = A/G Ratio) 1.9000 1.1000-2.5000 Bilirubin, Total (test code = Bilirubin, 0.3000 mg/dL 0.0000- 1.2000 Total) Alkaline Phosphatase (test code = Alkaline 74.0000 25.00 00-165.0000 Phosphatase) AST (SGOT) (test code = AST (SGOT)) 40.0000 0.0000-40.00 00 ALT (SGPT) (test code = ALT (SGPT)) 66.0000 0.0000-40.00 00 Iron, Total (test code = Iron, Total) 111.0000 35.0000-15 5.0000 TIBC (test code = TIBC) 198.0000 250.0000-450.0000 UIBC (test code = UIBC) 87.0000 150.0000-375.0000 % Iron Saturation (test code = % Iron 56.0000 % 15.0000-55 .0000 Saturation) Vitamin D (25-Hydroxy) (test code = 47.7000 ng/mL 30.0000-100. 0000 Vitamin D (25-Hydroxy)) Ferritin (test code = Ferritin) 1623.0000 ng/mL 13.0000-150.0000 [id number] 10:32:00 Test Item Value Reference Range Comments WBC (test code = WBC) 4.4000 4.2000-10.0000 MID% (test code = MID%) 5.3000 % 1.2000-11.2000 Lymphocytes % (test code = Lymphocytes %) 21.8000 % 22.400 0-43.6000 Neutrophils % (test code = Neutrophils %) 72.9000 % 48.900 0-69.9000 Lymphocytes (test code = Lymphocytes) 0.9000 1.2000-3.2 000 MID (test code = MID) 0.3000 0.1000-1.1000 Neutrophils (test code = Neutrophils) 3.2000 1.5000-6.7 000 RBC (test code = RBC) 4.7800 4.5000-6.3000 HGB (test code = HGB) 12.2000 g/dL 14.0000-18.0000 HCT (test code = HCT) 37.1000 % 41.0000-51.0000 MCV (test code = MCV) 77.6000 fL 80.0000-94.0000 MCH (test code = MCH) 25.5000 pg 27.0000-34.0000 MCHC (test code = MCHC) 32.9000 g/dL 31.5000-36.0000 RDW (test code = RDW) 29.6000 11.0000-14.6000 PLT (test code = PLT) 180.0000 140.0000-440.0000 MPV (test code = MPV) 8.1000 fL 6.8000-10.6000 Iron, [id number] 11:41:00 Test Item Value Reference Range Comments Iron, Total (test code = Iron, Total) 24.0000 35.0000-15 5.0000 TIBC (test code = TIBC) 381.0000 250.0000-450.0000 UIBC (test code = UIBC) 357.0000 150.0000-375.0000 % Iron Saturation (test code = % Iron 6.0000 % 15.0000-55 .0000 Saturation) Vitamin B12 (test code = Vitamin B12) 1308.0000 pg/mL 211.0000-9 46.0000 Folate (test code = Folate) 19.9000 ng/mL Ferritin (test code = Ferritin) 9.0000 ng/mL 13.0000-150.0000 [id number] 10:56:00 Test Item Value Reference Range Comments WBC (test code = WBC) 5.5000 4.2000-10.0000 MID% (test code = MID%) 7.1000 % 1.2000-11.2000 Lymphocytes % (test code = Lymphocytes %) 27.6000 % 22.400 0-43.6000 Neutrophils % (test code = Neutrophils %) 65.3000 % 48.900 0-69.9000 Lymphocytes (test code = Lymphocytes) 1.5000 1.2000-3.2 000 MID (test code = MID) 0.4000 0.1000-1.1000 Neutrophils (test code = Neutrophils) 3.6000 1.5000-6.7 000 RBC (test code = RBC) 4.5700 4.5000-6.3000 HGB (test code = HGB) 10.0000 g/dL 14.0000-18.0000 HCT (test code = HCT) 31.9000 % 41.0000-51.0000 MCV (test code = MCV) 69.6000 fL 80.0000-94.0000 MCH (test code = MCH) 22.0000 pg 27.0000-34.0000 MCHC (test code = MCHC) 31.6000 g/dL 31.5000-36.0000 RDW (test code = RDW) 22.2000 11.0000-14.6000 PLT (test code = PLT) 194.0000 140.0000-440.0000 MPV (test code = MPV) 8.2000 fL 6.8000-10.6000 Encounters Start End Encounter Admission Attending Care Care Encounter Date/Time Date/Time Type Type Clinicians Facility Department ID 2020-05-03 2020-05-03 Omayra Garrett [facility] [id number] 00:00:00 00:00:00 Dr. Wilfredo manzano [facility] Oncology Oncology [facility] 2020-05-02 2020-05-02 Outpatient Sang Sangprasad n [id number] 00:00:00 00:00:00 [facility] Medical Oncology Oncology [facility] 2020-01-10 2020-01-10 Outpatient Sang Sangprasad n [id number] 00:00:00 00:00:00 [facility] Oncology Oncology [facility] 2019-11-25 2019-11-25 Outpatient Sang Sangprasad n [id number] 00:00:00 00:00:00 [facility] Oncology Oncology [facility] 2019-11-17 2019-11-17 Gerry Garrett [facility] [id number] 00:00:00 00:00:00 Dr. Wilfredo manzano [facility] Medical Oncology Oncology [facility] 2019-10-13 2019-10-13 Outpatient Omayra Garrett [facility] rn [id number] 00:00:00 00:00:00 Wilfredo manzano [facility] Oncology Oncology [facility] 2019-10-05 2019-10-05 Outpatient [facility] Sangprasad n [id number] 00:00:00 00:00:00 [facility] Oncology Oncology [facility] 2019-08-04 2019-08-04 Outpatient Sangprasad Sangprasad n [id number] 00:00:00 00:00:00 [facility] Oncology Oncology [facility] 2019-05-05 2019-05-05 Outpatient Omayra Domínguezprasad n [id number] 00:00:00 00:00:00 [facility] Oncology [facility]cology [facility] [place] 2019-04-28 2019-04-28 Gerry Navarro [facility] [id number] 00:00:00 00:00:00 [facility] Oncology Oncology [facility] [place] 2018-11-11 2018-11-11 Gerry Navarro [facility] [id number] 00:00:00 00:00:00 [facility] Oncology Oncology [facility] 2018-10-30 2018-10-30 Outpatient Omayra Domínguezer n [id number] 00:00:00 00:00:00 [facility] Oncology Oncology [facility] [place] 2018-06-17 2018-06-17 Gerry Garrett [facility] [id number] 00:00:00 00:00:00 Dr. Villalobos [facility] Oncology Oncology [facility] 2018-05-27 2018-05-27 Miss Gerry Garcia [facility] loly [id number] 00:00:00 00:00:00 Maryellen Antonio [facility] Oncology Oncology [facility] 2018-05-22 2018-05-22 Outpatient Virgilmaxine Sangprasad Domíngueze rn [id number] 00:00:00 00:00:00 [facility] Oncology Oncology [facility] 2018-04-22 2018-04-22 Outpatient Virgilmaxine Omayra Sange rn [id number] 00:00:00 00:00:00 [facility] Oncology Oncology [facility] 2018-04-15 2018-04-15 Outpatient Omayra Garrette rn [id number] 00:00:00 00:00:00 [facility] Oncology Oncology [facility] 2018-04-10 2018-04-10 Outpatient Omayra Domínguezer n [id number] 00:00:00 00:00:00 [facility] Oncology Oncology [facility] 2018-04-02 2018-04-02 Outpatient Gerry Sangprasad Domíngueze rn [id number] 00:00:00 00:00:00 [facility] Oncology Oncology [facility] 2018-04-01 2018-04-01 Outpatient Virgilmaxine Omayra Sange rn [id number] 00:00:00 00:00:00 [facility] Oncology Oncology [facility] 2018-03-27 2018-03-27 Outpatient [facility] Omayra n [id number] 00:00:00 00:00:00 n Medical Medical Oncology Oncology [facility] [place] 2018-03-23 2018-03-23 Outpatient [facility]anger Sanger n [id number] 00:00:00 00:00:00 [facility] Medical Oncology Oncology [facility] [place] 2018-01-12 2018-01-12 Outpatient Omayra Garrette rn [id number] 00:00:00 00:00:00 Wilfredo manzano [facility] Medical Oncology Oncology [facility] [place] 2017-12-05 2017-12-05 Gerry Garrett Sangprasad [facility] [id number] 00:00:00 00:00:00 Dr. Wilfredo manzano [facility] Medical Oncology Oncology [facility] [place] 2017-11-20 2017-11-20 Outpatient Sang Sanger n [id number] 00:00:00 00:00:00 [facility] Medical Oncology Oncology [facility] [place] 2017-11-05 2017-11-05 Outpatient [facility] Sanger n [id number] 00:00:00 00:00:00 [facility] Medical Oncology Oncology [facility] [place] 2017-06-20 2017-06-20 Gerry Garrett Sangprasad [facility] [id number] 00:00:00 00:00:00 Dr. Wilfredo manzano [facility] Medical Oncology Oncology [facility] [place] 2017-06-12 2017-06-12 Outpatient Sanger Sanger n [id number] 00:00:00 00:00:00 [facility] Medical Oncology Oncology [facility] [place] 2017-05-29 2017-05-29 Outpatient [facility]anger Sanger n [id number] 00:00:00 00:00:00 [facility] Medical Oncology Oncology [facility] [place] 2017-01-23 2017-01-23 [facility] [id number] [facility]:00 00:00:00 n Medical Medical Oncology Oncology [facility] [place] 2016-12-27 2016-12-27 Outpatient [facility] n [id number] 00:00:00 00:00:00 n Medical Medical Oncology Oncology [facility] [place] 2016-12-26 2016-12-26 Gerry Garrett [facility] [id number] 00:00:00 00:00:00 Dr. Wilfredo manzano [facility] Medical Oncology Oncology [facility] [place] 2016-12-16 2016-12-16 [facility] [id number] 00:00:00 00:00:00 [facility] Medical Oncology Oncology [facility] [place] 2016-12-13 2016-12-13 Outpatient Omayra Cutler n [id number] 00:00:00 00:00:00 [facility] Medical Oncology Oncology [facility] [place] 2016-07-15 2016-07-15 Outpatient Omayra Cutler n [id number] 00:00:00 00:00:00 [facility] Oncology Oncology [facility] [place] 2016-07-11 2016-07-11 Miss Gerry Garcia [facility] loly [id number] 00:00:00 00:00:00 Maryellen manzano [facility] Oncology Oncology [facility] [place] 2016-05-27 2016-05-27 Outpatient Omayra Garrett rn [id number] 00:00:00 00:00:00 Wilfredo [facility] Oncology Oncology [facility] [place] 2016-05-23 2016-05-23 Outpatient Omayra Cutler n [id number] 00:00:00 00:00:00 [facility] Oncology Oncology [facility] [place] 2016-05-21 2016-05-21 Outpatient Omayra Cutler n [id number] 00:00:00 00:00:00 [facility] Oncology Oncology [facility] [place] 2016-05-20 2016-05-20 Miss Gerry Garcia [facility] loly [id number] 00:00:00 00:00:00 Maryellen Villalobos [facility] Oncology Oncology [facility] [place] 2016-05-09 2016-05-09 Outpatient Omayra Cutler n [id number] 00:00:00 00:00:00 [facility] Oncology Oncology [facility] [place] 2016-05-08 2016-05-08 Outpatient Omayra Cutler n [id number] 00:00:00 00:00:00 [facility] Oncology Oncology [facility] [place] 2016-05-07 2016-05-07 Outpatient Omayra Cutler n [id number] 00:00:00 00:00:00 [facility] Medical Oncology Oncology [facility] [place] 2016-03-26 2016-03-26 Outpatient Omayra Cutler n [id number] 00:00:00 00:00:00 [facility] Oncology Oncology [facility] [place] 2016-01-09 2016-01-09 Gerry Garrett [facility] [id number] 00:00:00 00:00:00 Dr. Wilfredo manzano [facility] Oncology Oncology [facility] [place] 2016-01-04 2016-01-04 Outpatient Omayra Garrett rn [id number] 00:00:00 00:00:00 Wilrfedo n Medical Medical Oncology Oncology [facility] [place] 2015-11-17 2015-11-17 Outpatient [facility] n [id number] 00:00:00 00:00:00 [facility] Oncology Oncology [facility] [place] 2015-07-06 2015-07-06 Gerry Flores [facility] [id number] 00:00:00 00:00:00 Girish Villalobos [facility] [place] 2015-02-03 2015-02-03 Gerry Garrett [facility] [id number] 00:00:00 00:00:00 Dr. Wilfredo manzano [facility] On[facility] [place] 2014-10-03 2014-10-03 Gerry Garrett [facility] [id number] 00:00:00 00:00:00 Dr. Wilfredo manzano [facility] [place] 2014-06-13 2014-06-13 [id number]:00 00:00:00 Wilfredo [facility] [place] 2014-06-06 2014-06-06 Gerry Garrett [facility] [id number] 00:00:00 00:00:00 Dr. Wilfredo manzano [facility] [place] 2014-03-14 2014-03-14 JoseMiss Gerry singerParis [facility] loly [id number] 00:00:00 00:00:00 Maryellen Villalobos [facility] Oncology Oncology Center [place] 2014-01-10 2014-01-10 Gerry Garrett [facility] [id number] 00:00:00 00:00:00 Dr. Wilfredo manzano [facility] Oncology Oncology Center [place] 2013-11-12 2013-11-12 Outpatient [facility] n [id number] 00:00:00 00:00:00 [facility] Medical Oncology Oncology Center [place] 2013-10-13 2013-10-13 Outpatient [facility] n [id number] 00:00:00 00:00:00 [facility] Medical Oncology Oncology Center [place] 2013-10-12 2013-10-12 Outpatient [facility] n [id number] 00:00:00 00:00:00 [facility] Oncology Oncology [facility] [place] 2013-10-11 2013-10-11 Gerry Garrett [facility] [id number] 00:00:00 00:00:00 Dr. Wilfredo manzano [facility] Medical Oncology Oncology Center [place] 2013-05-06 2013-05-06 Outpatient Omayra Cutler n [id number] 00:00:00 00:00:00 [facility] Oncology Oncology [facility] [place] 2013-04-12 2013-04-12 Gerry Garrett [facility] [id number] 00:00:00 00:00:00 Dr. Wilfredo manzano [facility] Oncology Oncology Center [place] 2012-10-12 2012-10-12 Gerry Garrett [facility] [id number] 00:00:00 00:00:00 Dr. Wilfredo Villalobos [facility] Oncology Oncology [facility] [place] 2012-04-13 2012-04-13 [facility] loly [id number] 00:00:00 00:00:00 [facility] [place] 2012-01-14 2012-01-14 [facility] loly [id number] 00:00:00 00:00:00 Maryellen Villalobos [facility] Oncology Oncology [facility] [place] 2011-12-05 2011-12-05 Outpatient Omayra Domínguezer n [id number] 00:00:00 00:00:00 [facility] Oncology Oncology [facility] [place] 2011-11-14 2011-11-14 [facility] [id number] 00:00:00 00:00:00 Maryellen Antonio [facility] Oncology Oncology [facility] [place] 2011-11-13 2011-11-13 Outpatient VirgilmaxineSangprasad Adela rn [id number] 00:00:00 00:00:00 [facility] Oncology Oncology Center [place] 2011-10-30 2011-10-30 Outpatient Omayra Garrette rn [id number] 00:00:00 [facility]:00[facility] [place] 2011-10-23 2011-10-23 Outpatient Omayra Garrette rn [id number] 00:00:00 00:00:00 [facility] Oncology Oncology Center [place] 2011-10-17 2011-10-17 Outpatient VirgilmaxineSangprasad Sange rn [id number] 00:00:00 00:00:00 [facility] Oncology Oncology [facility] 2011-10-16 2011-10-16 Outpatient JaOmayra sellerssalvador rn [id number] 00:00:00 00:00:00 [facility] Oncology Oncology Center [place] 2011-10-11 2011-10-11 Outpatient Omayra Cutler n [id number] 00:00:00 00:00:00 [facility] Oncology Oncology Center [place] 2011-10-10 2011-10-10 Outpatient Omayra Garrettsalvador rn [id number] 00:00:00 00:00:00 [facility] Oncology Oncology Center [place] 2011-10-08 2011-10-08 Outpatient NetoOmayra sellers rn [id number] 00:00:00 00:00:00 [facility] Oncology Oncology Center [place] 2011-10-04 2011-10-04 Virgilmaxine Omayra Garrett Vineet [id number] 00:00:00 00:00:00 Dr. Villalobos [facility] Oncology Oncology Center [place] 2011-09-24 2011-09-24 Outpatient Omayra Cutler natacha [id number] 00:00:00 00:00:00 [facility] Oncology Oncology [facility] 2011-09-20 2011-09-20 Outpatient Omayra Cutler n [id number] 00:00:00 00:00:00 [facility] Oncology Oncology [facility] 2011-09-19 2011-09-19 Outpatient Omayra Cutler n [id number] 00:00:00 00:00:00 [facility] Oncology Oncology [facility] Social History Smoking Status Start Date Stop Date Never 2020-05-03 00:00:00 Social History Observation Description Sex Female Vital Signs Vital Name Observation Time Observation Value Comments BMI 2020-05-03 10:35:06 27.5800 BP hanson 2020-05-03 10:35:06 64.0000 mm[Hg] Bdy height 2020-05-03 10:35:06 62.0000 [in_i] SaO2% BldA PulseOx 2020-05-03 10:35:06 99.0000 % Heart rate 2020-05-03 10:35:06 60.0000 /min Resp rate 2020-05-03 10:35:06 14.0000 /min BP sys 2020-05-03 10:35:06 112.0000 mm[Hg] Body temperature 2020-05-03 10:35:06 98.4000 [degF] Weight 2020-05-03 10:35:06 150.8000 [lb_av] BMI 2019-11-17 10:37:09 28.9400 BP hanson 2019-11-17 10:37:09 44.0000 mm[Hg] Bdy height 2019-11-17 10:37:09 62.0000 [in_i] SaO2% BldA PulseOx 2019-11-17 10:37:09 97.0000 % Heart rate 2019-11-17 10:37:09 61.0000 /min Resp rate 2019-11-17 10:37:09 18.0000 /min BP sys 2019-11-17 10:37:09 103.0000 mm[Hg] Body temperature 2019-11-17 10:37:09 97.3000 [degF] Weight 2019-11-17 10:37:09 158.2000 [lb_av] BMI 2019-04-28 11:27:38 27.6900 BP hanson 2019-04-28 11:27:38 52.0000 mm[Hg] Bdy height 2019-04-28 11:27:38 62.0000 [in_i] SaO2% BldA PulseOx 2019-04-28 11:27:38 96.0000 % Heart rate 2019-04-28 11:27:38 52.0000 /min Resp rate 2019-04-28 11:27:38 17.0000 /min BP sys 2019-04-28 11:27:38 102.0000 mm[Hg] Body temperature 2019-04-28 11:27:38 97.7000 [degF] Weight 2019-04-28 11:27:38 151.4000 [lb_av] BMI 2018-11-11 10:37:15 28.0600 BP hanson 2018-11-11 10:37:15 52.0000 mm[Hg] Bdy height 2018-11-11 10:37:15 62.0000 [in_i] Heart rate 2018-11-11 10:37:15 57.0000 /min Resp rate 2018-11-11 10:37:15 18.0000 /min BP sys 2018-11-11 10:37:15 119.0000 mm[Hg] Body temperature 2018-11-11 10:37:15 97.1000 [degF] Weight 2018-11-11 10:37:15 153.4000 [lb_av] BMI 2018-06-17 10:10:21 28.0900 BP hanson 2018-06-17 10:10:21 54.0000 mm[Hg] Bdy height 2018-06-17 10:10:21 62.0000 [in_i] Heart rate 2018-06-17 10:10:21 66.0000 /min Resp rate 2018-06-17 10:10:21 16.0000 /min BP sys 2018-06-17 10:10:21 111.0000 mm[Hg] Body temperature 2018-06-17 10:10:21 97.2000 [degF] Weight 2018-06-17 10:10:21 153.6000 [lb_av] BMI 2018-05-27 10:03:59 28.0600 BP hanson 2018-05-27 10:03:59 56.0000 mm[Hg] Bdy height 2018-05-27 10:03:59 62.0000 [in_i] Heart rate 2018-05-27 10:03:59 62.0000 /min Resp rate 2018-05-27 10:03:59 14.0000 /min BP sys 2018-05-27 10:03:59 111.0000 mm[Hg] Body temperature 2018-05-27 10:03:59 97.4000 [degF] Weight 2018-05-27 10:03:59 153.4000 [lb_av] BMI 2018-04-22 09:37:08 28.7900 BP hanson 2018-04-22 09:37:08 56.0000 mm[Hg] Bdy height 2018-04-22 09:37:08 62.0000 [in_i] SaO2% BldA PulseOx 2018-04-22 09:37:08 97.0000 % Heart rate 2018-04-22 09:37:08 69.0000 /min Resp rate 2018-04-22 09:37:08 20.0000 /min BP sys 2018-04-22 09:37:08 105.0000 mm[Hg] Body temperature 2018-04-22 09:37:08 97.1000 [degF] Weight 2018-04-22 09:37:08 157.4000 [lb_av] BMI 2018-04-15 10:54:43 28.7200 BP hanson 2018-04-15 10:54:43 45.0000 mm[Hg] Bdy height 2018-04-15 10:54:43 62.0000 [in_i] SaO2% BldA PulseOx 2018-04-15 10:54:43 97.0000 % Heart rate 2018-04-15 10:54:43 65.0000 /min Resp rate 2018-04-15 10:54:43 16.0000 /min BP sys 2018-04-15 10:54:43 104.0000 mm[Hg] Body temperature 2018-04-15 10:54:43 97.5000 [degF] Weight 2018-04-15 10:54:43 157.0000 [lb_av] BMI 2017-12-05 11:56:14 28.5300 BP hanson 2017-12-05 11:56:14 46.0000 mm[Hg] Bdy height 2017-12-05 11:56:14 62.0000 [in_i] Heart rate 2017-12-05 11:56:14 60.0000 /min Resp rate 2017-12-05 11:56:14 16.0000 /min BP sys 2017-12-05 11:56:14 102.0000 mm[Hg] Body temperature 2017-12-05 11:56:14 97.1000 [degF] Weight 2017-12-05 11:56:14 156.0000 [lb_av] BMI 2017-06-20 12:03:30 27.7300 BP hanson 2017-06-20 12:03:30 72.0000 mm[Hg] Bdy height 2017-06-20 12:03:30 62.0000 [in_i] Heart rate 2017-06-20 12:03:30 57.0000 /min Resp rate 2017-06-20 12:03:30 20.0000 /min BP sys 2017-06-20 12:03:30 140.0000 mm[Hg] Body temperature 2017-06-20 12:03:30 97.1000 [degF] Weight 2017-06-20 12:03:30 151.6000 [lb_av] BMI 2016-12-26 14:46:13 26.8900 BP hanson 2016-12-26 14:46:13 48.0000 mm[Hg] Bdy height 2016-12-26 14:46:13 62.0000 [in_i] Heart rate 2016-12-26 14:46:13 56.0000 /min Resp rate 2016-12-26 14:46:13 18.0000 /min BP sys 2016-12-26 14:46:13 123.0000 mm[Hg] Body temperature 2016-12-26 14:46:13 98.1000 [degF] Weight 2016-12-26 14:46:13 147.0000 [lb_av] BMI 2016-07-11 13:44:51 27.6200 BP hanson 2016-07-11 13:44:51 60.0000 mm[Hg] Bdy height 2016-07-11 13:44:51 62.0000 [in_i] Heart rate 2016-07-11 13:44:51 60.0000 /min Resp rate 2016-07-11 13:44:51 16.0000 /min BP sys 2016-07-11 13:44:51 106.0000 mm[Hg] Body temperature 2016-07-11 13:44:51 97.3000 [degF] Weight 2016-07-11 13:44:51 151.0000 [lb_av] BMI 2016-05-20 15:41:48 28.9700 BP hanson 2016-05-20 15:41:48 56.0000 mm[Hg] Bdy height 2016-05-20 15:41:48 62.0000 [in_i] Heart rate 2016-05-20 15:41:48 65.0000 /min Resp rate 2016-05-20 15:41:48 14.0000 /min BP sys 2016-05-20 15:41:48 134.0000 mm[Hg] Body temperature 2016-05-20 15:41:48 97.0000 [degF] Weight 2016-05-20 15:41:48 158.4000 [lb_av] BMI 2016-01-09 13:24:55 28.0900 BP hanson 2016-01-09 13:24:55 61.0000 mm[Hg] Bdy height 2016-01-09 13:24:55 62.0000 [in_i] Heart rate 2016-01-09 13:24:55 71.0000 /min Resp rate 2016-01-09 13:24:55 16.0000 /min BP sys 2016-01-09 13:24:55 120.0000 mm[Hg] Body temperature 2016-01-09 13:24:55 98.4000 [degF] Weight 2016-01-09 13:24:55 153.6000 [lb_av] BMI 2015-07-06 10:14:52 27.6600 BP hanson 2015-07-06 10:14:52 65.0000 mm[Hg] Bdy height 2015-07-06 10:14:52 62.0000 [in_i] Heart rate 2015-07-06 10:14:52 59.0000 /min Resp rate 2015-07-06 10:14:52 14.0000 /min BP sys 2015-07-06 10:14:52 152.0000 mm[Hg] Body temperature 2015-07-06 10:14:52 96.8000 [degF] Weight 2015-07-06 10:14:52 151.2000 [lb_av] Resp rate 2015-02-03 10:04:33 18.0000 /min BP sys 2015-02-03 10:04:33 126.0000 mm[Hg] Body temperature 2015-02-03 10:04:33 98.2000 [degF] Weight 2015-02-03 10:04:33 149.2000 [lb_av] BMI 2015-02-03 10:04:33 27.2900 BP hanson 2015-02-03 10:04:33 54.0000 mm[Hg] Bdy height 2015-02-03 10:04:33 62.0000 [in_i] Heart rate 2015-02-03 10:04:33 58.0000 /min BMI 2014-10-03 10:12:38 26.8100 BP hanson 2014-10-03 10:12:38 55.0000 mm[Hg] Bdy height 2014-10-03 10:12:38 62.0000 [in_i] Heart rate 2014-10-03 10:12:38 57.0000 /min Resp rate 2014-10-03 10:12:38 16.0000 /min BP sys 2014-10-03 10:12:38 145.0000 mm[Hg] Body temperature 2014-10-03 10:12:38 96.5000 [degF] Weight 2014-10-03 10:12:38 146.6000 [lb_av] BMI 2014-06-06 10:06:32 26.1600 BP hanson 2014-06-06 10:06:32 54.0000 mm[Hg] Bdy height 2014-06-06 10:06:32 62.0000 [in_i] Heart rate 2014-06-06 10:06:32 68.0000 /min Resp rate 2014-06-06 10:06:32 16.0000 /min BP sys 2014-06-06 10:06:32 120.0000 mm[Hg] Body temperature 2014-06-06 10:06:32 97.0000 [degF] Weight 2014-06-06 10:06:32 143.0000 [lb_av] BMI 2014-03-14 10:11:51 27.9800 BP hanson 2014-03-14 10:11:51 57.0000 mm[Hg] Bdy height 2014-03-14 10:11:51 62.0000 [in_i] Heart rate 2014-03-14 10:11:51 65.0000 /min Resp rate 2014-03-14 10:11:51 18.0000 /min BP sys 2014-03-14 10:11:51 129.0000 mm[Hg] Body temperature 2014-03-14 10:11:51 97.8000 [degF] Weight 2014-03-14 10:11:51 153.0000 [lb_av] BMI 2014-01-10 09:55:59 30.5400 BP hanson 2014-01-10 09:55:59 77.0000 mm[Hg] Bdy height 2014-01-10 09:55:59 62.0000 [in_i] Heart rate 2014-01-10 09:55:59 59.0000 /min Resp rate 2014-01-10 09:55:59 18.0000 /min BP sys 2014-01-10 09:55:59 141.0000 mm[Hg] Body temperature 2014-01-10 09:55:59 97.1000 [degF] Weight 2014-01-10 09:55:59 167.0000 [lb_av] BMI 2013-10-11 09:05:04 30.8000 BP hanson 2013-10-11 09:05:04 64.0000 mm[Hg] Bdy height 2013-10-11 09:05:04 62.0000 [in_i] Heart rate 2013-10-11 09:05:04 62.0000 /min Resp rate 2013-10-11 09:05:04 16.0000 /min BP sys 2013-10-11 09:05:04 129.0000 mm[Hg] Body temperature 2013-10-11 09:05:04 96.3000 [degF] Weight 2013-10-11 09:05:04 168.4000 [lb_av] BMI 2013-04-12 10:26:54 30.6500 BP hanson 2013-04-12 10:26:54 65.0000 mm[Hg] Bdy height 2013-04-12 10:26:54 62.0000 [in_i] Heart rate 2013-04-12 10:26:54 52.0000 /min Resp rate 2013-04-12 10:26:54 18.0000 /min BP sys 2013-04-12 10:26:54 141.0000 mm[Hg] Body temperature 2013-04-12 10:26:54 96.3000 [degF] Weight 2013-04-12 10:26:54 167.6000 [lb_av] BMI 2012-10-12 10:06:43 31.4600 BP hanson 2012-10-12 10:06:43 70.0000 mm[Hg] Bdy height 2012-10-12 10:06:43 62.0000 [in_i] Heart rate 2012-10-12 10:06:43 58.0000 /min Resp rate 2012-10-12 10:06:43 16.0000 /min BP sys 2012-10-12 10:06:43 149.0000 mm[Hg] Body temperature 2012-10-12 10:06:43 97.0000 [degF] Weight 2012-10-12 10:06:43 172.0000 [lb_av] BMI 2012-04-13 09:56:57 31.1700 BP hanson 2012-04-13 09:56:57 73.0000 mm[Hg] Bdy height 2012-04-13 09:56:57 62.0000 [in_i] Heart rate 2012-04-13 09:56:57 62.0000 /min Resp rate 2012-04-13 09:56:57 16.0000 /min BP sys 2012-04-13 09:56:57 141.0000 mm[Hg] Body temperature 2012-04-13 09:56:57 97.0000 [degF] Weight 2012-04-13 09:56:57 170.4000 [lb_av] BMI 2012-01-14 09:58:48 31.0600 BP hanson 2012-01-14 09:58:48 70.0000 mm[Hg] Bdy height 2012-01-14 09:58:48 62.0000 [in_i] Heart rate 2012-01-14 09:58:48 71.0000 /min Resp rate 2012-01-14 09:58:48 18.0000 /min BP sys 2012-01-14 09:58:48 142.0000 mm[Hg] Body temperature 2012-01-14 09:58:48 97.2000 [degF] Weight 2012-01-14 09:58:48 169.8000 [lb_av] BP hanson 2011-11-14 10:29:56 66.0000 mm[Hg] Bdy height 2011-11-14 10:29:56 62.0000 [in_i] Heart rate 2011-11-14 10:29:56 80.0000 /min Resp rate 2011-11-14 10:29:56 18.0000 /min BP sys 2011-11-14 10:29:56 134.0000 mm[Hg] Body temperature 2011-11-14 10:29:56 98.0000 [degF] Weight 2011-11-14 10:29:56 172.6000 [lb_av] BP hanson 2011-10-30 12:47:46 75.0000 mm[Hg] Bdy height 2011-10-30 12:47:46 62.0000 [in_i] Heart rate 2011-10-30 12:47:46 66.0000 /min Resp rate 2011-10-30 12:47:46 18.0000 /min BP sys 2011-10-30 12:47:46 136.0000 mm[Hg] Body temperature 2011-10-30 12:47:46 97.2000 [degF] Weight 2011-10-30 12:47:46 171.8000 [lb_av] BP hanson 2011-10-23 13:07:15 64.0000 mm[Hg] Bdy height 2011-10-23 13:07:15 62.0000 [in_i] Heart rate 2011-10-23 13:07:15 69.0000 /min Resp rate 2011-10-23 13:07:15 18.0000 /min BP sys 2011-10-23 13:07:15 123.0000 mm[Hg] Body temperature 2011-10-23 13:07:15 97.4000 [degF] Weight 2011-10-23 13:07:15 170.0000 [lb_av] BP hanson 2011-10-16 12:52:48 68.0000 mm[Hg] Bdy height 2011-10-16 12:52:48 62.0000 [in_i] Heart rate 2011-10-16 12:52:48 85.0000 /min Resp rate 2011-10-16 12:52:48 18.0000 /min BP sys 2011-10-16 12:52:48 139.0000 mm[Hg] Body temperature 2011-10-16 12:52:48 98.2000 [degF] Weight 2011-10-16 12:52:48 171.6000 [lb_av] BP hanson 2011-10-10 13:02:35 73.0000 mm[Hg] Heart rate 2011-10-10 13:02:35 67.0000 /min Resp rate 2011-10-10 13:02:35 18.0000 /min BP sys 2011-10-10 13:02:35 149.0000 mm[Hg] Body temperature 2011-10-10 13:02:35 97.1000 [degF] Weight 2011-10-10 13:02:35 174.6000 [lb_av]
== END ==
LOC: OD 09:21
PROVIDERS: ATTEND Internal Medicine Cardiovascular Disease
DX: I48.0 Paroxysmal atrial fibrillation (principal); Z79.01 Long term (current) use of anticoagulants; Z79.899 Other long term (current) drug therapy
CPT/HCPCS: 36415; 80048; 80076; 81001; 82272; 83735; 85027; 85730

== ENCOUNTER → 2020-07-15 | Outpatient (CLI) | payer MEDICARE, OTHER ==
[~2020-07-15] MED LIST: COVID-19 VACCINE (PFIZER)/PF 30 MCG/0.3 ML VIAL IM ONE; EPINEPHRINE INJ/PF 1 MG/1 ML AMPULE IM PRN
== END ==
LOC: EMPHEALTH 09:24
PROVIDERS: ATTEND Internal Medicine
DX: Z23 Encounter for immunization (principal)
CPT/HCPCS: 91300